=== PATIENT | female | born 1960 | race African-American/Black ===

== ENCOUNTER 2020-02-24 08:14 | Outpatient (CLI) | payer OTHER, SELFPAY ==
--- NOTE | ~2020-02-24 | MM_ITS ---
EXAMINATION: MM screening judd BI w alondra HISTORY: Screening mammogram TECHNIQUE: Craniocaudal and mediolateral oblique 3-D tomosynthesis images were obtained and synthetic 2-D images were generated. CAD analysis was submitted and interpreted. COMPARISON: No prior mammogram is available for comparison at this institution. BREAST PARENCHYMAL COMPOSITION: There are scattered areas of fibroglandular density. FINDINGS: There is no evidence of suspicious mass, calcification, or architectural distortion to sugg est malignancy in either breast. IMPRESSION: 1. No mammographic evidence of malignancy. 2. Recommend routine screening mammography in one year. BI-RADS Category 1: Negative Reviewed, dictated and finalized at location A. TABLE LOADER
== END 2020-02-24 08:15 | disposition home or self-care (01) ==
LOC: ANHIMG 08:19
PROVIDERS: PCP Physician Assistant; Visit Provider Physician Assistant
DX: Z12.31 Encounter for screening mammogram for malignant neoplasm of breast (principal)
CPT/HCPCS: 77063; 77067

== ENCOUNTER 2020-08-17 15:46 | Emergency (ER) | payer OTHER, SELFPAY ==
--- NOTE | ~2020-08-17 | CT_ITS ---
EXAMINATION: CT abdomen pelvis wo con DATE: 08/17/2020 20:09 INDICATION: Abdominal pain. TECHNIQUE: Computed tomography (CT) of the abdomen and pelvis was performed without intravenous contr ast. Automated exposure control and iterative reconstruction technique were employed. The dose-length product was 561.69 mGy-cm. COMPARISON: None FINDINGS: Lung bases are clear. Heart size is normal. No pericardial or pleural effusion. Well-defined 8 mm low -attenuation cyst in the right hepatic lobe. Gallbladder, spleen, pancreas, bilateral adrenal glands and kidneys are normal. Moderate amount of stool in the colon with proximal predominance. There is ad ditional extensive pseudo feces throughout the small bowel which can be seen with delayed transit. No dilated bowel to suggest obstruction. Normal appendix. 2.0 cm right ovarian dermoid with mixed fat a nd soft tissue density. Some coarse calcifications in the right side of the uterine fundus likely a d egenerated uterine fibroid. Bladder and left adnexa are unremarkable. No free intraperitoneal gas or fluid. No pathologically enlarged abdominal or pelvic lymphadenopathy. Minimal lower lumbar dextrocur vature. Mild degenerative skeletal changes in the spine and at the bilateral hips. IMPRESSION: 1. Moderate amount of colonic stool with pseudo feces scattered throughout the small bowel which coul d be seen with constipation and/or ileus. No dilated bowel to suggest obstruction or other acute intr a-abdominal/pelvic process. 2. 2.0 cm right ovarian dermoid. Reviewed, dictated and finalized at location A. IMPRESSION: 1. Moderate amount of colonic stool with pseudo feces scattered throughout the small bowel which could be seen with constipation and/or ileus. No dilated tino l to suggest obstruction or other acute intra-abdominal/pelvic process. 2. 2.0 cm right ovarian dermoid.
[2020-08-17 15:52] VITALS: BP 137/81; PULSE 72; RESP 18; TEMP 36.4; O2SAT 99
[2020-08-17 16:06] LABS: Basophils Percent Auto 0.9 % (0.2-1.2); Eosinophils Absolute Auto 0.1 K/mm3 (0-0.3); Eosinophils Percent Auto 2.2 % (0-4.4); Hematocrit 36.7 % (37.0-47.0); Hemoglobin 11.5 g/dL (12.0-15.0); Lymphocytes Absolute Auto 1.99 K/mm3 (0.9-3.2); Lymphocytes Percent Auto 42.9 % (18.3-44.2); Mean Corpuscular HGB Conc 31.3 g/dl (32-36); Mean Corpuscular Hemoglobin 25.7 pg (26-34); Mean Corpuscular Volume 81.9 fl (80-100); Monocytes Absolute Auto 0.4 K/mm3 (0.1-0.6); Monocytes Percent Auto 8.4 % (2.6-8.5); Neutrophils Absolute Auto 2.1 K/mm3 (1.3-6.7); Neutrophils Percent Auto 45.6 % (45.5-73.1); Platelet Count Result 194 k/mm3 (150-375); Red Blood Count 4.48 M/mm3 (4.2-5.4); White Blood Count 4.6 K/mm3 (4.5-10.0)
[2020-08-17 16:21] LABS: Alanine Aminotransferase 15 U/L (4-35); Albumin Level 4.6 g/dL (3.5-5.1); Alkaline Phosphatase 65 U/L (38-126); Anion Gap 8 mmol/L (8-16); Aspartate Amino Transferase 26 U/L (14-36); Bilirubin,Total 0.4 mg/dL (0.2-1.3); Blood Urea Nitrogen 17 mg/dL (7-17); Calcium 10.2 mg/dL (8.4-10.2); Carbon Dioxide 29 mmol/L (22-30); Chloride 104 mmol/L (98-107); Estimated CRCL calculation 65 ml/min; Estimated Glomerular Filt Rate > 60; Glucose 102 mg/dL (65-105); Lipase 73 U/L (23-300); Sodium 141 mmol/L (137-145)
[2020-08-17 18:47] LABS: Add Urine Microscopic? YES; Appearance Urine Clear (Clear); Bilirubin Urine Negative (Negative); Blood Urine Negative (Negative); Color Urine Yellow (Yellow); Glucose Urine UA Negative (Negative); Ketones Urine Negative (Negative); Leukocyte Esterase Ur Negative LEU/UL (Negative); Mucus Urine Rare /lpf; Nitrate Urine Negative (Negative); Protein Urine Negative (Negative); RBC Urine 0-2 /hpf (0-2); Specific Grav Ur 1.015 (1.001-1.035); Urobilinogen Urine Negative mg/dL (<2.0); WBC Urine 0-3 /hpf
[2020-08-17 18:48] VITALS: BP 169/76; PULSE 78; RESP 20; O2SAT 99
--- NOTE | 2020-08-17 20:20 | ED.GENADULT ---
HPI - General Adult General Chief complaint: Abdominal Pain Stated complaint: l flank pain Time Seen by Provider: 08/17/20 19:02 History of Present Illness HPI narrative: Patient 59-year-old female presents the emergency department with chief complaint of abdominal pain. The patient reports that she has been having discomfort in the left lower quadrant reports that it feels like her insides are twisting. The patient states that this is been going on for about a month reports that it started after she got her second Covid vaccine. Patient denies vomiting denies diarrhea denies burning with urination denies vaginal discharge. The patient reports the symptoms are not worsened by anything or they improved by anything Related Data Allergies Allergy/AdvReac Type Severity Reaction Status Date / Time No Known Allergies Allergy Verified 02/09/19 22:56 Review of Systems Review of Systems: Narrative: A 10 system review of systems was completed on the patient and is negative except for what is stated in the HPI. Nursing and ancillary documentation was reviewed. [facility] Social History Social History Gender identity (if verbalized by the patient): Female Exam Narrative: Exam Narrative: GENERAL: Well-appearing, well-nourished, and in no acute distress. HEAD: Normocephalic, atraumatic. EYES: PERRLA and EOMI. ENT: Nares clear, no rhinorrhea or epistaxis. Mucous membranes moist. NECK: Supple. CHEST: Clear to auscultation. No respiratory distress. HEART: Regular rate and rhythm. No murmur heard. Normal peripheral pulses. ABDOMEN: Soft, nontender, nondistended, normal active bowel sounds. EXTREMITIES: Normal range of motion. No edema. SKIN: Warm, dry, no rash. NEURO: No focal deficits. Alert and oriented x3. PSYCH: Normal mood and affect. Course Vital Signs Vital signs: Vital Signs Temperature 36.4 C L 08/17/20 15:52 Pulse Rate 72 08/17/20 15:52 Respiratory Rate 18 08/17/20 15:52 Blood Pressure 137/81 08/17/20 15:52 Pulse Oximetry 99 08/17/20 15:52 Temperature 36.4 C L 08/17/20 15:52 Pulse Rate 78 08/17/20 18:48 Respiratory Rate 20 08/17/20 18:48 Blood Pressure 169/76 H 08/17/20 18:48 Pulse Oximetry 99 08/17/20 18:48 Medical Decision Making Vital Signs Vital Signs: Vital Signs Temperature 36.4 C L 08/17/20 15:52 Pulse Rate 72 08/17/20 15:52 Respiratory Rate 18 08/17/20 15:52 Blood Pressure 137/81 08/17/20 15:52 Pulse Oximetry 99 08/17/20 15:52 Temperature 36.4 C L 08/17/20 15:52 Pulse Rate 78 08/17/20 18:48 Respiratory Rate 20 08/17/20 18:48 Blood Pressure 169/76 H 08/17/20 18:48 Pulse Oximetry 99 08/17/20 18:48 Lab Data Result diagrams: 08/17/20 15:59 08/17/20 15:59 Labs: Lab Results 08/17/20 08/17/20 08/17/20 Range/Units 15:59 15:59 18:40 WBC 4.6 (4.5-10.0) K/mm3 RBC 4.48 (4.2-5.4) M/mm3 Hgb 11.5 L (12.0-15.0) g/dL Hct 36.7 L (37.0-47.0) % MCV 81.9 (80-100) fl MCH 25.7 L (26-34) pg MCHC 31.3 L (32-36) g/dl RDW 14.0 (11.5-14.5) % Plt Count 194 (150-375) k/mm3 MPV 10.0 (7.4-10.4) fl Immature Gran % (Auto) 0.0 (0-0.5) % Neut % (Auto) 45.6 (45.5-73.1) % Lymph % (Auto) 42.9 (18.3-44.2) % Mellette % (Auto) 8.4 (2.6-8.5) % Eos % (Auto) 2.2 (0-4.4) % Baso % (Auto) 0.9 (0.2-1.2) % Lymph # (Auto) 1.99 (0.9-3.2) K/mm3 Mellette # (Auto) 0.4 (0.1-0.6) K/mm3 Eos # (Auto) 0.1 (0-0.3) K/mm3 Baso # (Auto) 0.0 (0.0-0.1) K/mm3 Abs Immat Gran (auto) 0.00 (0.00-0.031) K/mm3 Absolute Neuts (auto) 2.1 (1.3-6.7) K/mm3 Absolute Nucleated RBC 0.0 (0.0-0.012) K/mm3 Nucleated RBC % 0.0 (0.0-0.2) % Sodium 141 (137-145) mmol/L Potassium 4.0 (3.4-5.0) mmol/L Chloride 104 (98-107) mmol/L Carbon Dioxide 29 (22-30) mmol/L Anion Gap 8 (8-
[2020-08-17] MEDS: MAGNESIUM CITRATE 300 ML BTL PO (21:19)
[2020-08-17 21:25] VITALS: BP 121/85; PULSE 65; RESP 16; O2SAT 100
== END 2020-08-17 21:21 | disposition home or self-care (01) ==
PROVIDERS: Emergency Medicine; Emergency Provider Emergency Medicine; PCP Physician Assistant
DX: R10.84 Generalized abdominal pain (principal); K59.00 Constipation, unspecified
CPT/HCPCS: 36415; 74176; 80053; 81001; 81025; 83690; 85025; 99284; A9270

== ENCOUNTER 2022-02-20 20:34 | Emergency (ER) | payer OTHER, SELFPAY ==
--- NOTE | ~2022-02-20 | XR_ITS ---
EXAMINATION: XR chest 2V DATE: 02/20/2022 21:53 INDICATION: Syncope, coughing and chills TECHNIQUE: PA and lateral views of the chest were obtained. COMPARISON: Chest radiograph dated 11/12/17 FINDINGS: Stable appearance of mild biapical pleural-parenchymal scarring. No other airspace opacities, pulmona ry edema, pleural effusion or pneumothorax. The cardiomediastinal silhouette is normal. Mild upper th oracic spondylosis. IMPRESSION: 1. No acute cardiopulmonary disease. Reviewed, dictated and finalized at location A. RHANGER CONTRACTOR
[2022-02-20 20:44] VITALS: BP 124/70; PULSE 90; RESP 18; TEMP 36.8; O2SAT 98
--- NOTE | 2022-02-20 20:57 | ED.URI ---
HPI - URI/Sore Throat General Chief Complaint: Upper Respiratory Infection Stated Complaint: sore throat, chills, headache Time Seen by Provider: 02/20/22 20:57 Source: patient Mode of arrival: ambulatory Limitations: no limitations History of Present Illness HPI Narrative: Patient is a 61-year-old female presenting to the emergency department for evaluation following a syncopal event. Patient states that she has felt unwell today with fever, chills, sore throat. Patient denies any significant cough or shortness of breath. She denies chest pain. She states that she took a bath this evening and then stood up from the bathtub, was walking in the bathroom when she felt lightheaded, dizzy and then passed out. Patient did have a loss of consciousness. Patient's daughter heard her fall, states that she was unconscious for a few seconds. Unknown head trauma. Patient is not on any anticoagulation. Patient has been ambulatory since that.Pt denies neck, chest or hip pain. She denies palpitations or dyspnea. Pt reports decreased oral intake today secondary to feeling poorly. Patient denies any focal weakness or numbness. Patient does feel lightheaded and dizzy that worsens with standing. Related Data Allergies Allergy/AdvReac Type Severity Reaction Status Date / Time No Known Allergies Allergy Verified 02/20/22 20:56 Review of Systems Review of Systems: CONSTITUTIONAL: Reports subjective fever, chills CARDIOVASCULAR: Denies chest pain, palpitations, or edema. RESPIRATORY: Denies cough or dyspnea. GASTROINTESTINAL: Denies abdominal pain, nausea, vomiting, or diarrhea. GENITOURINARY: Denies dysuria or hematuria. SKIN: Denies rash or itching. MUSCULOSKELETAL: Denies back pain, joint pain, reports myalgias NEUROLOGIC: Denies headache, numbness, or weakness. [facility] Past Medical History Medical History (Updated 02/21/22 @ 02:32 by Fouzia Ricardo MD) No pertinent past medical history Surgical History Surgical History (Updated 02/20/22 @ 21:16 by Fouzia Ricardo MD) No pertinent past surgical history Social History Social History (Updated 02/20/22 @ 21:17 by Fouzia Ricardo MD) Smoking status: Never smoker Alcohol intake: never Substance use: never Living arrangements: with family Gender identity (if verbalized by the patient): Female Exam Narrative: GENERAL: Awake, alert, conversant HEAD: Normocephalic, atraumatic. EYES: PERRLA and EOMI. ENT: Nares clear, no rhinorrhea or epistaxis. Mucous membranes moist. Uvula is midline. No tonsillar edema or erythema. No exudates present. No trismus. NECK: Supple. No midline cervical tenderness. No step-offs or deformities. CHEST: No respiratory distress, breathing even and non labored HEART: Regular rate, sinus rhythm ABDOMEN:Non distended, non tender EXTREMITIES: Normal range of motion. No edema. SKIN: Warm, dry, no rash. NEURO:No focal deficits. Alert and oriented x3. EOMs intact without nystagmus. No facial droop/asymmetry noted bilaterally. Grimace intact. Intact sensation in face. Hearing intact bilaterally. Shoulder shrug intact. Strength 5/5 bilateral upper extremities. Strength 5/5 bilateral lower extremities. Reflexes 2+ patellar. Heel to barnard intact bilaterally. Ambulatory with a narrow base, steady gait, no ataxia. Course Vital Signs Vital signs: Vital Signs Temperature 36.8 C 02/20/22 20:44 Pulse Rate 90 02/20/22 20:44 Respiratory Rate 18 02/20/22 20:44 Blood Pressure 124/70 02/20/22 20:44 Pulse Oximetry 98 02/20/22 20:44 Oxygen Delivery Room Air 02/20/22 20:44 Temperature 36.8 C 02/20/22 20:44 Pulse Rate 58 L 02/20/22 22:40 Respiratory Rate 12 02/20/22 22:40 Blood Pressure 100/75 02/20/22 22:40 Pulse Oximetry 98 02/20/22 22:40 Oxygen Delivery Room Air 02/20/22 20:55 MDM - URI/Sore Throat MDM Narrative Medical decision making narrative: The patient was evaluated in the emergency departmen
--- NOTE | 2022-02-20 21:10 | ECG_ITS ---
Measurements Intervals [place] Rate: 78 P: 71 CA: 181 QRS: 8 QRSD: 78 T: 33 QT: 389 QTc: 445 Interpretive Statements SINUS RHYTHM POSSIBLE RIGHT ATRIAL ENLARGEMENT [0.25mV P WAVE] NONSPECIFIC ST & T-WAVE ABNORMALITY NO PREVIOUS ECG AVAILABLE FOR COMPARISON Electronically Signed On 02-21-2022 10:16:25 SALES PRODUCT MANAGER by Awais Batista M.D.
[2022-02-20 21:20] LABS: Strep Group A RT-PCR NOT DETECTED (Negative)
[2022-02-20 21:34] LABS: Influenza A QL RT-PCR Positive (Negative); Influenza B QL RT-PCR Negative (Negative); SARS-CoV-2 RNA PCR Negative
--- NOTE | 2022-02-20 21:36 | PC.NURSE ---
patient reported that she had a syncopal episode today. that was not mentioned during nursing assessment. denies having a hx of any syncopal episodes in the past
[2022-02-20 21:51] LABS: Basophils Percent Auto 0.5 % (0.2-1.2); Eosinophils Percent Auto 0.3 % (0-4.4); Hemoglobin 13.2 g/dL (12.0-15.0); Immature Granulocyte Absolute 0.02 K/mm3 (0.00-0.031); Immature Granulocyte Percent A 0.5 % (0-0.5); Lymphocytes Absolute Auto 0.99 K/mm3 (0.9-3.2); Lymphocytes Percent Auto 25.5 % (18.3-44.2); Mean Corpuscular HGB Conc 31.4 g/dl (32-36); Mean Corpuscular Hemoglobin 25.7 pg (26-34); Mean Corpuscular Volume 81.9 fl (80-100); Mean Platelet Volume 10.4 fl (7.4-10.4); Monocytes Absolute Auto 0.7 K/mm3 (0.1-0.6); Monocytes Percent Auto 19.1 % (2.6-8.5); Neutrophils Absolute Auto 2.1 K/mm3 (1.3-6.7); Neutrophils Percent Auto 54.1 % (45.5-73.1); Platelet Count Result 194 k/mm3 (150-375); Red Blood Count 5.13 M/mm3 (4.2-5.4); Red Cell Distribution Width 14.3 % (11.5-14.5); White Blood Count 3.9 K/mm3 (4.5-10.0)
[2022-02-20] MEDS: ACETAMINOPHEN 500 MG TABLET 1000 MG PO (22:09)
[2022-02-20] MEDS: SODIUM CHLORIDE 0.9% IV 1,000 ML 999 ML IV CONT (22:10)
[2022-02-20 22:12] VITALS: BP 127/75; PULSE 87; RESP 19; O2SAT 98
[2022-02-20 22:40] VITALS: BP 100/75; PULSE 58; RESP 12; O2SAT 98
[2022-02-20 23:30] LABS: Anion Gap 10 mmol/L (8-16); Blood Urea Nitrogen 17 mg/dL (7-17); Calcium 9.5 mg/dL (8.4-10.2); Carbon Dioxide 27 mmol/L (22-30); Chloride 98 mmol/L (98-107); Estimated Glomerular Filt Rate 56; Glucose 115 mg/dL (65-110); Potassium 3.4 mmol/L (3.4-5.0); Sodium 135 mmol/L (137-145)
[2022-02-20 23:42] LABS: Troponin I < 0.012 ng/mL (0.000-0.034)
[2022-02-21 01:49] LABS: Add Urine Microscopic? YES; Appearance Urine Clear (Clear); Bilirubin Urine 1+ (Negative); Blood Urine Negative (Negative); Color Urine Yellow (Yellow); Glucose Urine UA Negative (Negative); Ketones Urine 3+ mg/dL (Negative); Leukocyte Esterase Ur Trace LEU/UL (Negative); Nitrate Urine Negative (Negative); Protein Urine 1+ mg/dL (Negative); Specific Grav Ur >= 1.030 (1.001-1.035)
[2022-02-21] MEDS: SODIUM CHLORIDE 0.9% IV 1,000 ML 999 ML IV CONT (02:15)
[2022-02-21 02:59] VITALS: BP 117/68; PULSE 66; RESP 11; O2SAT 100
[2022-02-21 03:23] LABS: Troponin I < 0.012 ng/mL (0.000-0.034)
== END 2022-02-21 03:45 | disposition home or self-care (01) ==
PROVIDERS: Emergency Provider Emergency Medicine; PCP Physician Assistant
DX: J10.1 Influenza due to other identified influenza virus with other respiratory manifestations (principal); R55 Syncope and collapse; Z20.822 Contact with and (suspected) exposure to COVID-19; R94.31 Abnormal electrocardiogram [ECG] [EKG]
CPT/HCPCS: 36415; 71046; 80048; 81001; 84484; 85025; 87636; 87651; 93005; 96360; 96361; 99284; A9270; J7030

== ENCOUNTER 2022-06-17 09:07 | Emergency (ER) | payer OTHER, SELFPAY ==
--- NOTE | ~2022-06-17 | CT_ITS ---
EXAMINATION: CT lumbar spine wo con DATE: 06/17/2022 09:51 INDICATION: Low back pain. TECHNIQUE: Computed tomography (CT) of the lumbar spine was performed without intravenous contrast. A utomated exposure control and iterative reconstruction technique were employed. The dose-length produ ct was 806.62 mGy-cm. COMPARISON: None FINDINGS: There is a 1.7 cm mass with fat in the right adnexa, consistent with a dermoid. There is a calcified fibroid in the uterus. Bone alignment is normal. Vertebral body heights are normal. There i s mildly decreased disc height at L3-L4. The following disc levels are specifically discussed: L1-L2: The disc does not extend beyond the endplate margin. There is severe bilateral facet joint ost eoarthritis. There is no neural foraminal stenosis. There is no central canal stenosis. L2-L3: There is a right foraminal protrusion. There is moderate right and mild left facet joint osteo arthritis. There is mild right neural foraminal stenosis. There is no central canal stenosis. L3-L4: The disc is bulging. There is severe bilateral facet joint osteoarthritis. There is mild bilat eral neural foraminal stenosis. There is mild central canal stenosis. L4-L5: The disc is bulging. There is severe bilateral facet joint osteoarthritis. There is moderate b ilateral neural foraminal stenosis. There is mild central canal stenosis. L5-S1: The disc is bulging. There is severe bilateral facet joint osteoarthritis. There is mild bilat eral neural foraminal stenosis. There is mild central canal stenosis. IMPRESSION: 1. Moderate lumbar spondylosis. Reviewed, dictated and finalized at location A.
[2022-06-17 09:13] VITALS: BP 154/71; PULSE 57; RESP 16; TEMP 37.3; O2SAT 100
--- NOTE | 2022-06-17 09:33 | ED.BACK ---
HPI - Back Pain/Injury General Chief Complaint: Back Pain/Injury Stated Complaint: back pain Time Seen by Provider: 06/17/22 09:11 History of Present Illness HPI Narrative: 61-year-old female reports to the emergency for evaluation of bilateral low back pain for 2 days after she was massaging her low back 2 days ago and has had persistent pain since. Taking 500 mg ibuprofen yesterday with relief, and 500 mg ibuprofen 2 and half hours ago with small improvement. She denies recent injury to back, paresthesias, saddle anesthesia, loss of bowel or bladder control or retention, fever, body aches, chills, history of cancer, steroid use, IV drug use. Denies urinary complaints. Related Data Allergies Allergy/AdvReac Type Severity Reaction Status Date / Time No Known Allergies Allergy Verified 02/20/22 20:56 Review of Systems Review of Systems: CONSTITUTIONAL: Denies fever, chills EYES: Denies visual changes, redness, or discharge. ENT: Denies rhinorrhea, congestion, sore throat, or otalgia. CARDIOVASCULAR: Denies chest pain, palpitations, or edema. RESPIRATORY: Denies cough or dyspnea. GASTROINTESTINAL: Denies abdominal pain, nausea, vomiting, or diarrhea. GENITOURINARY: Denies dysuria or hematuria. SKIN: Denies rash or itching. MUSCULOSKELETAL: See HPI NEUROLOGIC: Denies headache, numbness, dizziness, or weakness. PSYCHIATRIC: Denies anxiety or depression. [facility] Past Medical History Medical History No pertinent past medical history Surgical History Surgical History No pertinent past surgical history Social History Social History Smoking status: Never smoker Alcohol intake: never Substance use: never Living arrangements: with family Gender identity (if verbalized by the patient): Female Exam Narrative: GENERAL: Well-appearing, well-nourished, and in no acute distress. Patient resting comfortably in the exam bed. She is pleasant and conversational. HEAD: Normocephalic, atraumatic. EYES: PERRLA and EOMI. ENT: Nares clear, no rhinorrhea or epistaxis. Mucous membranes moist. Oropharynx without tonsillar hypertrophy exudate or other lesions. NECK: Supple. No adenopathy or masses. No cervical vertebral tenderness, step-offs or deformities. Full range of motion of neck. CHEST: Clear to auscultation. No respiratory distress. No wheezes rales or rhonchi HEART: Regular rate and rhythm. No murmur heard. Normal peripheral pulses. ABDOMEN: Soft, nontender, nondistended, normal active bowel sounds. BACK: No vertebral spine tenderness, step-offs or deformities. Bilateral lumbar paraspinous tenderness. Full range of motion of back, pain exacerbated with leftward and rightward bending of the waist and rotation. No overlying skin changes. No tenderness to pelvis with palpation. Patient ambulatory, no ataxia. EXTREMITIES: Full range of motion of hips, knees, ankles. No saddle anesthesia. Sensation intact throughout. Strength 5/5 in BUE and BLE. DP and radial pulses 2+. No edema. SKIN: Warm, dry, no rash. NEURO: No focal deficits. Alert and oriented x3. PSYCH: Normal mood and affect. Course Vital Signs Vital signs: Vital Signs Temperature 99.1 F 06/17/22 09:13 Pulse Rate 57 L 06/17/22 09:13 Respiratory Rate 16 06/17/22 09:13 Blood Pressure 154/71 H 06/17/22 09:13 Pulse Oximetry 100 06/17/22 09:13 Oxygen Delivery Room Air 06/17/22 09:13 Temperature 99.1 F 06/17/22 09:13 Pulse Rate 65 06/17/22 10:43 Respiratory Rate 16 06/17/22 10:43 Blood Pressure 125/82 06/17/22 10:43 Pulse Oximetry 100 06/17/22 10:43 Oxygen Delivery Room Air 06/17/22 09:13 MDM - Back Pain/Injury MDM Narrative Medical decision making narrative: This is a 61-year-old female who reports for evaluation of bilateral lumbar back alvaro
[2022-06-17] MEDS: CYCLOBENZAPRINE HCL 10 MG TABLET PO (09:39)
[2022-06-17] MEDS: ACETAMINOPHEN 500 MG TABLET 1000 MG PO (09:41)
[2022-06-17 09:54] LABS: Appearance Urine Clear (Clear); Bacteria Urine None Seen /hpf; Bilirubin Urine Negative (Negative); Blood Urine Negative (Negative); Color Urine Yellow (Yellow); Glucose Urine UA Negative (Negative); Ketones Urine Negative (Negative); Leukocyte Esterase Ur Trace LEU/UL (Negative); Nitrate Urine Negative (Negative); Non Pathogenic Casts 0-2; Protein Urine Negative (Negative); RBC Urine 0-2 /hpf (0-2); Specific Grav Ur 1.028 (1.001-1.035); Squamous Epithelial Cell Urine None seen /hpf (Few); WBC Urine 0-5 /hpf
[2022-06-17 10:00] LABS: Add Urine Microscopic? YES
[2022-06-17 10:43] VITALS: BP 125/82; PULSE 65; RESP 16; O2SAT 100
== END 2022-06-17 10:45 | disposition home or self-care (01) ==
PROVIDERS: Emergency Provider Physician Assistant; PCP Physician Assistant
DX: S39.012A Strain of muscle, fascia and tendon of lower back, initial encounter (principal); M47.816 Spondylosis without myelopathy or radiculopathy, lumbar region; X58.XXXA Exposure to other specified factors, initial encounter
CPT/HCPCS: 72131; 81001; 96372; 99284; A9270; J1100

== ENCOUNTER 2022-08-18 23:37 | Emergency (ER) | payer OTHER, SELFPAY ==
--- NOTE | ~2022-08-18 | CT_ITS ---
EXAMINATION: CT brain wo con INDICATION: Head injury COMPARISON: None TECHNIQUE: Standard unenhanced head CT. The dose-length product (DLP) was 681.00 mGy-cm. The mA was a djusted according to patient size. Iterative reconstruction technique was employed. FINDINGS: There is no acute intraparenchymal hemorrhage. No evidence of mass lesion. No evidence of a cute infarction. There is mild periventricular and subcortical hypodensity probably related to small vessel ischemic disease. There is mild prominence of the sulci and ventricles related to cerebral atr ophy. Intracranial calcified cerebral atherosclerosis is noted. There are no extra-axial collections. There is no mass effect or midline shift. The orbits and soft tissues are unremarkable. There is opa cification of the partially imaged right maxillary sinus. IMPRESSION: 1. No acute intracranial abnormality. 2. Age related findings. Reviewed, dictated and finalized at location A.
[2022-08-18 23:42] VITALS: BP 151/72; PULSE 74; RESP 16; TEMP 36.6; O2SAT 100
--- NOTE | 2022-08-19 01:01 | ED.HEATRA ---
HPI - Head Injury General Chief complaint: Head Injury <Naila Valle PA-C - Last Filed: 08/21/22 14:22> Stated complaint: head injury <Naila Valle PA-C - Last Filed: 08/21/22 14:22> Time Seen by Provider: 08/19/22 00:53 <Naila Valle PA-C - Last Filed: 08/21/22 14:22> History of Present Illness HPI Narrative: 61-year-old female presents for evaluation for head injury and headache. Patient states that she was at work 5 hours ago, she had a large 7 foot whip from a computer fall over her R yarsani. States she had a headache over her L yarsani since the accident which has since resolved. She denies LOC, n/v, vision changes, focal numbness or weakness, difficulty walking or talking, difficulty swallowing, amnesia. She has not taken anything for pain. She is not currently on blood thinners. <Naila Valle PA-C - Last Filed: 08/21/22 14:22> Related Data Allergies/Adverse reactions: Allergies Allergy/AdvReac Type Severity Reaction Status Date / Time No Known Allergies Allergy Verified 02/20/22 20:56 <Naila Valle PA-C - Last Filed: 08/21/22 14:22> Review of Systems Review of Systems: CONSTITUTIONAL: Denies fever, chills EYES: Denies visual changes, redness, or discharge. ENT: Denies rhinorrhea, congestion, sore throat, or otalgia. CARDIOVASCULAR: Denies chest pain, palpitations, or edema. RESPIRATORY: Denies cough or dyspnea. GASTROINTESTINAL: Denies abdominal pain, nausea, vomiting, or diarrhea. GENITOURINARY: Denies dysuria or hematuria. SKIN: Denies rash or itching. MUSCULOSKELETAL: Denies back pain, joint pain, or myalgia. NEUROLOGIC: See HPI PSYCHIATRIC: Denies anxiety or depression. <Naila Valle PA-C - Last Filed: 08/21/22 14:22> PMFSH Past Medical History Medical History: Medical History No pertinent past medical history <Naila Valle PA-C - Last Filed: 08/21/22 14:22> Surgical History Surgical History: Surgical History No pertinent past surgical history <Naila Valle PA-C - Last Filed: 08/21/22 14:22> Social History Social History: Social History Smoking status: Never smoker Alcohol intake: never Substance use: never Living arrangements: with family Gender identity (if verbalized by the patient): Female <Naila Valle PA-C - Last Filed: 08/21/22 14:22> Exam Narrative: GENERAL: Well-appearing, in no acute distress. HEAD: Normocephalic. Tenderness to the right parietal scalp superior to the yarsani. No overlying skin changes, hematoma, crepitus. EYES: PERRLA, EOMI ENT: Nares clear. Mucous membranes moist. Oropharynx without tonsillar hypertrophy exudate or other lesions. NECK: Supple. CHEST: No respiratory distress. Clear to auscultation, no adventitious breath sounds. HEART: Regular rate and rhythm. No murmur heard. Normal peripheral pulses. EXTREMITIES: Normal range of motion. No edema. SKIN: Warm, dry, no rash. NEURO: No focal deficits. Alert and oriented x3. Cranial nerves II through XII intact. Strength 5/5 in BUE and BLE. Sensation intact throughout. PSYCH: Normal mood and affect. <Naila Valle PA-C - Last Filed: 08/21/22 14:22> Course TIMERS INSPECTOR/PA Physician Supervision This visit was performed by both the physician and an APC. I performed all aspects of the MDM as documented <Charlie Desai MD - Last Filed: 08/19/22 06:56> Vital Signs Vital signs: Vital Signs Temperature 97.9 F 08/18/22 23:42 Pulse Rate 74 08/18/22 23:42 Respiratory Rate 16 08/18/22 23:42 Blood Pressure 151/72 H 08/18/22 23:42 Pulse Oximetry 100 08/18/22 23:42 Oxygen Delivery Room Air 08/18/22 23:42 Temperature 97.9 F 08/18/22 23:42 Pulse Rate 56 L 08/19/22 06:20 Respiratory Rate
[2022-08-19] MEDS: ACETAMINOPHEN 500 MG TABLET 1000 MG PO (01:17)
[2022-08-19 06:20] VITALS: BP 128/69; PULSE 56; RESP 16; O2SAT 100
== END 2022-08-19 07:02 | disposition home or self-care (01) ==
LOC: ANHED 08-19 01:26
PROVIDERS: Emergency Provider Physician Assistant; PCP Physician Assistant
DX: S09.90XA Unspecified injury of head, initial encounter (principal); W20.8XXA Other cause of strike by thrown, projected or falling object, initial encounter
CPT/HCPCS: 70450; 99284; A9270

== ENCOUNTER 2022-09-05 11:00 | Outpatient (RCR) | payer OTHER, SELFPAY ==
--- NOTE | 2022-08-14 10:19 | PCPTNOTE ---
Patient did not show up for scheduled evaluation this date.
--- NOTE | 2022-08-15 11:39 | PTOPEVAL1 ---
Assessment and note entered by Tricia Estrada, PT Evaluation Information Assessment Status Evaluation Diagnosis lumbar spainl stenosis Onset July 2022 Subjective Information went to ER due to back pain; in the past week, have been doing everything, but trying to protect her back and do less lifting and bending; do not have any restrictions for work; Reported Pain Level Pain Score Self Report Additional Pain Score Comments in the past week, pain range of 0-2/10-- have not had any back pain, but back was tender and feel like need to stretch; increase with walking and twisting back; decrease pain with stretching and change position; get cramps in calves and low back muscles; when went to ER had pain into both lateral hips- now gone; no problems with sleeping- usually on R side education: use of heat/ice PRN--has not used in the past; position change, monitor posture and position of low back; Assessment PT Clinical Summary Raegan has the diagnosis of lumbar spinal stenosis She went to the ER in July due to worsening pain which is now less. She is limiting her lifting and activity at work, but requirement is 50# lifting. Currently, she is working 2 jobs, 12-16 hours/day, 5x/wk. With the evaluation, she has good flexibility of her trunk and hips, with the only motion that elicited pain was standing trunk rotation to R; in standing, has slight anterior tilt of pelvis/ sacrum; weakness of trunk/abdominals. Her back pain has started to resolve and she is increasing her activity to almost full work duties--limits her lifting and reaching at work. Skilled PT services are indicated for modalities PRN for pain control; therapeutic exercises and activities to increase trunk strength and simulated work activity- lifting, reaching with education for body mechanics, posture and HEP. Plan of Care Interventions Electrical Stimulation,Hot Pack/Cold Pack,Manual Therapy,Neuro Re-education,Patient Education,Therapeutic Activities,Therapeutic Exercise,Ultrasound,Other Other Interventions devin, [facility] PT Services Indicated Yes Treatment Frequency and 2x/wk for 3 weeks Duration Th
--- NOTE | 2022-08-18 08:40 | PCPTNOTE ---
Patient did not show up for scheduled appointment this date; called patient left voicemail to remind patient on next appointment.
--- NOTE | 2022-08-26 13:00 | PCPTNOTE ---
pt did not show for today's appt; called her, she forgot about appointment, reminded her of the next appt and she stated she would be here.
--- NOTE | 2022-09-05 11:38 | PTOPDC ---
Assessment and note entered by Tricia Estrada, PT Evaluation Information Assessment Status Discharge Diagnosis lumbar spainl stenosis Onset July 2022 Subjective Information Raegan reports: back is doing OK; little sore from sitting in the car and driving 6 hours; is bending alot at work, to reach down; try to remember to squat to reach down, but do not always remember; bought a massager gun to use on side of legs, helped; have been doing the stretches and exercises at home; at work gets help if something is too heavy; she agrees to discharge from PT services and will continue to do her exercises. Reported Pain Level Pain Score Self Report Additional Pain Score Comments no pain in her back for the past week; has had some soreness and tightness but NO pain Assessment PT Clinical Summary Raegan has received 5 PT sessions. She did not show for 2 appointments. Compared to the initial evaluation: reported pain has decreased at worst from 2-0/10; increased trunk and hip strength with mat exercises and single leg standing time; bilateral UE box lift with maximum weight of 30# from floor/waist height ,with good body mechanics; Education has been completed for home exercises, posture and body mechanics. The goals were partially met. Discharge PT services; continue to do HEP and monitor posture. Plan of Care PT Services Indicated No
== END 2022-09-05 12:53 | disposition home or self-care (01) ==
LOC: ANHPT 11:00
PROVIDERS: PCP Physician Assistant; Visit Provider Physician Assistant
DX: M48.061 Spinal stenosis, lumbar region without neurogenic claudication (principal)
CPT/HCPCS: 97110; 97161; 97530; 99199

== ENCOUNTER 2022-12-20 12:31 | Emergency (ER) | payer OTHER, SELFPAY ==
--- NOTE | ~2022-12-20 | US_ITS ---
EXAMINATION: US venous doppler [facility] DATE: 12/20/2022 15:20 INDICATION: Lower limb pain TECHNIQUE: Grayscale ultrasound images without and with compression and Doppler ultrasound images of the bilateral lower extremity veins were obtained. COMPARISON: None. FINDINGS: The visualized portions of right common femoral vein, profunda (deep) femoral vein, femoral vein, pop liteal vein, posterior tibial veins, peroneal veins, gastrocnemius vein and greater saphenous vein ou tflow are patent. The visualized portions of left common femoral vein, profunda femoral vein, femoral vein, popliteal v ein, posterior tibial veins, peroneal veins, gastrocnemius vein and greater saphenous vein outflow ar e patent. IMPRESSION: 1. No deep venous thrombosis in either lower limb. Reviewed, dictated and finalized at location A.
[2022-12-20 12:33] VITALS: BP 160/76; PULSE 68; RESP 14; TEMP 36.7; O2SAT 100
[2022-12-20 13:21] LABS: Basophils Percent Auto 0.9 % (0.2-1.2); Eosinophils Absolute Auto 0.2 K/mm3 (0-0.3); Eosinophils Percent Auto 3.7 % (0-4.4); Hematocrit 36.4 % (37.0-47.0); Hemoglobin 11.2 g/dL (12.0-15.0); Immature Granulocyte Absolute 0.01 K/mm3 (0.00-0.031); Immature Granulocyte Percent A 0.2 % (0-0.5); Lymphocytes Absolute Auto 1.82 K/mm3 (0.9-3.2); Lymphocytes Percent Auto 39.3 % (18.3-44.2); Mean Corpuscular HGB Conc 30.8 g/dl (32-36); Mean Corpuscular Hemoglobin 25.4 pg (26-34); Mean Corpuscular Volume 82.5 fl (80-100); Mean Platelet Volume 10.4 fl (7.4-10.4); Monocytes Absolute Auto 0.4 K/mm3 (0.1-0.6); Monocytes Percent Auto 9.1 % (2.6-8.5); Neutrophils Absolute Auto 2.2 K/mm3 (1.3-6.7); Neutrophils Percent Auto 46.8 % (45.5-73.1); Platelet Count Result 200 k/mm3 (150-375); Red Blood Count 4.41 M/mm3 (4.2-5.4); Red Cell Distribution Width 13.6 % (11.5-14.5); White Blood Count 4.6 K/mm3 (4.5-10.0)
[2022-12-20 13:32] LABS: Alanine Aminotransferase 22 U/L (6-35); Albumin Level 4.5 g/dL (3.5-5.1); Alkaline Phosphatase 66 U/L (38-126); Anion Gap 6 mmol/L (8-16); Aspartate Amino Transferase 27 U/L (14-36); Bilirubin,Total 0.7 mg/dL (0.2-1.3); Blood Urea Nitrogen 17 mg/dL (7-17); Calcium 9.3 mg/dL (8.4-10.2); Carbon Dioxide 26 mmol/L (22-30); Chloride 104 mmol/L (98-107); Estimated CRCL calculation 73 ml/min; Estimated Glomerular Filt Rate > 60; Glucose 94 mg/dL (65-110); Potassium 4.1 mmol/L (3.4-5.0); Sodium 136 mmol/L (137-145)
[2022-12-20 13:41] LABS: NT Pro B Type Natriuretic Pept 95 pg/mL (19.9-100)
--- NOTE | 2022-12-20 15:51 | ED.EXTPRO ---
HPI - Extremity Problem General Chief complaint: Extremity Problem,Nontraumatic Stated complaint: swollen legs Time Seen by Provider: 12/20/22 12:58 History of Present Illness HPI Narrative: 61-year-old female presented the emergency department for evaluation of lower extremity swelling. Patient states the swelling has been going on for an extended period of time but did start worsening over the last few days. Patient does have outpatient follow-up scheduled but she states that the symptoms worsen so she wanted to be evaluated. Patient has been wearing compressive stockings without significant improvement. Related Data Allergies Allergy/AdvReac Type Severity Reaction Status Date / Time No Known Allergies Allergy Verified 12/17/22 12:18 Review of Systems Review of Systems: All systems reviewed & are unremarkable except as noted in HPI and below PMFSH Past Medical History Medical History No pertinent past medical history Surgical History Surgical History No pertinent past surgical history Social History Social History Smoking status: Never smoker Alcohol intake: never Substance use: never Living arrangements: with family Gender identity (if verbalized by the patient): Female Spiritual care concerns: No Exam Narrative: APPEARANCE: Well appearing, no pain, no distress, well-nourished. HEAD: normocephalic, atraumatic. EYES: PERRLA/EOMI, conjunctivae clear. NOSE: Normal no drainage NECK: Supple. No adenopathy, no masses. RESPIRATORY: Airway patent, respirations nonlabored. Clear to auscultation bilaterally, no rales, rhonchi, wheezing. CARDIOVASCULAR: Regular rate and rhythm without murmurs rubs or gallops. ABDOMINAL: Soft, nontender, nondistended, normal bowel sounds MUSCULOSKELETAL: Moves all extremities. Bilateral lower extremity edema worse on right than left. NEURO: Alert. Cranial nerves II through XII intact. Grossly intact SKIN: Warm, dry. Normal Color. No lower extremity erythema Course Course Emergency Course: 61-year-old female present emergency department for evaluation of lower extremity swelling. Patient is afebrile with no leukocytosis and a stable hemoglobin. Patient's CMP has no significant abnormality and patient's BNP is not elevated. Ultrasound showed no evidence of DVT. Patient was encouraged of close follow-up with her primary care physician Vital Signs Vital signs: Vital Signs Temperature 98.0 F 12/20/22 12:33 Pulse Rate 68 12/20/22 12:33 Respiratory Rate 14 12/20/22 12:33 Blood Pressure 160/76 H 12/20/22 12:33 Pulse Oximetry 100 12/20/22 12:33 Oxygen Delivery Room Air 12/20/22 12:33 Temperature 98.0 F 12/20/22 12:33 Pulse Rate 68 12/20/22 12:33 Respiratory Rate 14 12/20/22 12:33 Blood Pressure 160/76 H 12/20/22 12:33 Pulse Oximetry 100 12/20/22 12:33 Oxygen Delivery Room Air 12/20/22 12:33 MDM - Extremity (Nontraumatic) Lab Data 12/20/22 13:15 12/20/22 13:15 Labs: Lab Results 12/20/22 Range/Units 13:15 WBC 4.6 (4.5-10.0) K/mm3 RBC 4.41 (4.2-5.4) M/mm3 Hgb 11.2 L (12.0-15.0) g/dL Hct 36.4 L (37.0-47.0) % MCV 82.5 (80-100) fl MCH 25.4 L (26-34) pg MCHC 30.8 L (32-36) g/dl RDW 13.6 (11.5-14.5) % Plt Count 200 (150-375) k/mm3 MPV 10.4 (7.4-10.4) fl Immature Gran % (Auto) 0.2 (0-0.5) % Neut % (Auto) 46.8 (45.5-73.1) % Lymph % (Auto) 39.3 (18.3-44.2) % [place] % (Auto) 9.1 H (2.6-8.5) % Eos % (Auto) 3.7 (0-4.4) % Baso % (Auto) 0.9 (0.2-1.2) % Lymph # (Auto) 1.82 (0.9-3.2) K/mm3 [place] # (Auto) 0.4 (0.1-0.6) K/mm3 Eos # (Auto) 0.2 (0-0.3) K/mm3 Baso # (Auto) 0.0 (0.0-0.1) K/mm3 Abs Immat Gran (auto) 0.01 (0.00-0.031) K/mm3 Absolute Neuts (auto) 2.2 (1
== END 2022-12-20 16:07 | disposition home or self-care (01) ==
PROVIDERS: Emergency Provider Emergency Medicine; PCP Physician Assistant
DX: R22.43 Localized swelling, mass and lump, lower limb, bilateral (principal)
CPT/HCPCS: 36415; 80053; 83880; 85025; 93970; 99284

== ENCOUNTER 2022-12-26 01:04 | Day surgery (SDC) | payer OTHER, SELFPAY ==
[2022-12-17 12:20] VITALS: BMI 27.5
[2022-12-26 11:27] VITALS: BMI 27.3
--- NOTE | 2022-12-26 11:27 | PM.HPGS ---
History of Present Illness History of Present Illness Consent: Risks, benefits, and alternatives have been discussed and questions answered. Patient agrees to proceed with procedure. Chief complaint: neoplasm screening Narrative: Raegan Gregg is a 62 year old female Presents for screening colonoscopy. Patient has current weight appetite bowel movements are normal. She denies abdominal pain. She has had no bleeding. Family history is noncontributory. Review of Systems Review of Systems: Review of systems noncontributory. PMFSH Past Medical History Medical History No pertinent past medical history Surgical History Surgical History No pertinent past surgical history Social History Social History Smoking status: Never smoker Alcohol intake: never Substance use: never Living arrangements: with family Gender identity (if verbalized by the patient): Female Spiritual care concerns: No Meds Home Medications and Allergies Home Medications Medication Instructions Recorded Confirmed Type naproxen 250 mg tablet 250 mg PO BID PRN pain #20 tabs 06/17/22 12/17/22 Rx Allergies Allergy/AdvReac Type Severity Reaction Status Date / Time No Known Allergies Allergy Verified 12/26/22 11:24 Exam Narrative: Physical exam reveals patient to be alert. Vital signs stable. HEENT exam is unremarkable. Patient is anicteric. Lungs are clear to auscultation and percussion. Heart is without murmur or extra sounds. Abdomen bowel sounds are present soft nontender with no organomegaly. Digital external rectal exam normal. Assessment and Plan Assessment and plan (1) Encounter for screening colonoscopy: Code(s): Z12.11 - Encounter for screening for malignant neoplasm of colon Status: Acute Assessment and Plan: Patient presents for screening colonoscopy. She appears to be at average risk for colon polyps. Further recommendations may be given after endoscopy.
[2022-12-26 11:30] VITALS: BP 150/59; PULSE 73; RESP 20; TEMP 36.2; O2SAT 100
[2022-12-26] MEDS: LACTATED RINGERS 1,000 ML 150 ML IV CONT (11:36)
--- NOTE | 2022-12-26 11:58 | WPDANESEPPF ---
Anes - Initial Pre Proc Eval Procedure: Operation Date: 12/26/22 12:30 Proposed Procedures p Screening Colonoscopy - Seun Urias MD Date/Time: 12/26/22 11:58 Surgeon: Seun Urias MD Pre Op Diagnosis: neoplasm screening Patient Data Age: 62 Gender: F Height: 1.78 m Weight: 86.6 kg Last Vital Signs Temp 97.2 F L 12/26/22 11:30 Pulse 73 12/26/22 11:30 Resp 20 12/26/22 11:30 BP 150/59 H 12/26/22 11:30 Pulse Ox 100 12/26/22 11:30 O2 Del Method Room Air 12/26/22 11:30 Allergies Allergy/AdvReac Type Severity Reaction Status Date / Time No Known Allergies Allergy Verified 12/26/22 11:24 Home Medications Medication Instructions Recorded Confirmed Type naproxen 250 mg tablet 250 mg PO BID PRN pain #20 tabs 06/17/22 12/17/22 Rx Patient hx anesthesia problems: none Family hx anesthesia problems: none Results Review: All pre-operative results and documents have been reviewed as part of the pre-operative evaluation. [facility] Past Medical History Medical History No pertinent past medical history Surgical History Surgical History No pertinent past surgical history Social History Social History Smoking status: Never smoker Alcohol intake: never Substance use: never Living arrangements: with family Gender identity (if verbalized by the patient): Female Spiritual care concerns: No Anes - Eval Final PreProcedure Day of Procedure 12/26/22 11:58 Patient weight: normal Heart: regular rate and rhythm Lungs: clear to auscultation Airway: Mallampati scale class II Neurological: alert and oriented Last oral intake: >/= 8 hours ASA classification: II Emergent: no Anesthetic plan: proceed Anesthesia type and monitoring: general GIVS and standard monitoring Results Review: All pre-operative results and documents have been reviewed as part of the pre-operative evaluation. Informed Consent: The patient's anesthetic plan and its attendant risks and benefits were discussed with the patient/family/POA. Questions were solicited and answers provided to the satisfaction of the patient/family/POA.
[2022-12-26 13:11] VITALS: BP 149/78; PULSE 78; RESP 16; O2SAT 100
[2022-12-26 13:21] VITALS: BP 150/84; PULSE 79; RESP 19; O2SAT 100
[2022-12-26 13:31] VITALS: BP 147/79; PULSE 72; RESP 20; O2SAT 100
== END 2022-12-26 13:51 | disposition home or self-care (01) ==
PROVIDERS: PCP Physician Assistant; Visit Provider Internal Medicine Gastroenterology
PROC: 0DJD8ZZ Inspection of Lower Intestinal Tract, Via Natural or Artificial Opening Endoscopic (ICD-10-PCS; CPT 45378; principal; 2022-12-26 12:30)
DX: Z12.11 Encounter for screening for malignant neoplasm of colon (principal); K64.8 Other hemorrhoids
CPT/HCPCS: 45378; J2704; J7120

== ENCOUNTER 2023-01-09 19:22 | Emergency (ER) | payer OTHER, SELFPAY ==
[2023-01-09 20:28] VITALS: BP 175/82; PULSE 70; RESP 18; TEMP 36.3; O2SAT 100
[2023-01-09 22:31] VITALS: BP 157/89; PULSE 64; PULSE 66; RESP 15; TEMP 36.4; O2SAT 100
[2023-01-09 22:44] VITALS: PULSE 64; RESP 12; O2SAT 98
[2023-01-09 22:45] VITALS: PULSE 64; RESP 13; O2SAT 99
[2023-01-09 22:46] VITALS: BP 155/92; PULSE 66; RESP 13; O2SAT 98
--- NOTE | 2023-01-09 23:03 | ED.GENADULT ---
HPI - General Adult General Chief complaint: Unspecified Stated complaint: rectal bleeding Time Seen by Provider: 01/09/23 23:03 History of Present Illness HPI narrative: Patient is a 62-year-old female here with rectal bleeding. She states that she had a colonoscopy on 12/26/2022 and she has had couple small bowel movements but today was her 1st large bowel movement since the colonoscopy. She notes that she had significant blood in the toilet bowl with bright red blood on her toilet paper. She denies any associated abdominal pain or cramping. She denies any clot passage. She notes that she did have some rectal bleeding in the past which lasted about a month and this prompted her colonoscopy. At that time the colonoscopy did find that she had some nonbleeding internal hemorrhoids. She denies any history of any liver disease or alcohol use. She denies any blood thinner use. She does note that she contacted the GI clinic today and they recommended she come into the emergency department for evaluation. She denies any current abdominal pain, rectal pain, fever, chills. Related Data Allergies Allergy/AdvReac Type Severity Reaction Status Date / Time No Known Allergies Allergy Verified 12/26/22 11:24 Review of Systems Review of Systems: All systems reviewed & are unremarkable except as noted in HPI and below PMFSH Past Medical History Medical History No pertinent past medical history Surgical History Surgical History No pertinent past surgical history Social History Social History Smoking status: Never smoker Alcohol intake: never Substance use: never Living arrangements: with family Gender identity (if verbalized by the patient): Female Spiritual care concerns: No Exam Narrative: GENERAL: Well-appearing, well-nourished, and in no acute distress. HEAD: Normocephalic, atraumatic. EYES: PERRLA and EOMI. ENT: Nares clear. Mucous membranes moist. NECK: Supple. CHEST: Clear to auscultation. No respiratory distress. HEART: Regular rate and rhythm. Normal peripheral pulses. ABDOMEN: Soft, nontender, nondistended. RECTAL: Exam performed with RN as occupational nurse. Skin takes noted at the 9 o'clock and 12 o'clock position, no active fissure appreciated, nontender rectal exam, no active rectal bleeding appreciated. No external hemorrhoids appreciated, unable to appreciate internal hemorrhoids on my exam. EXTREMITIES: Normal range of motion. No edema. SKIN: Warm, dry, no rash. NEURO: No focal deficits. Alert and oriented x3. PSYCH: Normal mood and affect. Course Course Emergency Course: Chart review performed. Patient here with rectal bleeding. Colonoscopy report from 12/26/[address] Urias, they found multiple medium sized uncomplicated internal hemorrhoids seen in rectum, no active bleeding. Patient seen evaluated, in no acute distress. No abdominal tenderness, hemodynamically stable. She had 1 episode of rectal bleeding after a firm bowel movement. On rectal exam she has no active bleeding and she has a nontender abdominal exam. Believe that this is likely attributed to her internal hemorrhoids which she is aware of. At this time I did not believe that lab work and imaging is indicated. Advised stool softeners and increase fiber intake. Advised follow-up with her GI doctor and primary care doctor next week. The results of pertinent diagnostic studies and exam findings were discussed. The patient?s provisional diagnosis and plan of care were discussed with the patient and present family. The patient and/or present family expressed understanding of the diagnosis and plan. The nurse was instructed to provide written instructions and appropriate follow-up information. The patient understands their need and responsibility to obtain addit
[2023-01-09 23:05] VITALS: PULSE 68; RESP 13; O2SAT 98
== END 2023-01-10 00:10 | disposition home or self-care (01) ==
PROVIDERS: Emergency Provider Student in an Organized Health Care Education/Training Program; PCP Physician Assistant
DX: K64.8 Other hemorrhoids (principal); K62.5 Hemorrhage of anus and rectum
CPT/HCPCS: 99284

== ENCOUNTER 2023-01-20 12:15 | Emergency (ER) | payer OTHER, SELFPAY ==
--- NOTE | ~2023-01-20 | US_ITS ---
EXAMINATION: US venous doppler [facility] DATE: 01/20/2023 14:56 INDICATION: swelling . TECHNIQUE: Grayscale images without and with compression and Doppler images of the right lower extrem ity veins were obtained. COMPARISON: None FINDINGS: The right common femoral vein, profunda (deep) femoral vein, femoral vein, popliteal vein, peroneal v ein, posterior tibial veins, gastrocnemius vein, and greater saphenous vein are patent. IMPRESSION: Patent right lower extremity veins. No evidence of deep venous thrombosis. Reviewed, dictated and finalized at location K. YARD SUPERVISOR
[2023-01-20 12:39] VITALS: BP 147/70; PULSE 73; RESP 18; TEMP 36.7; O2SAT 98
--- NOTE | 2023-01-20 14:24 | ED.EXTPRO ---
HPI - Extremity Problem General Chief complaint: Extremity Problem,Nontraumatic <Sulma Prather, ASSISTANT FRONT OFFICE MANAGER - Last Filed: 01/20/23 14:26> Stated complaint: swollen lower extremtities <Sulma Prather ASSISTANT FRONT OFFICE MANAGER - Last Filed: 01/20/23 14:26> Time Seen by Provider: 01/20/23 15:49 <Sulma Donahue July ASSISTANT FRONT OFFICE MANAGER - Last Filed: 01/20/23 14:26> Source: patient <Ricky Leo DO - Last Filed: 01/23/23 05:02> Limitations: no limitations <Ricky Leo DO - Last Filed: 01/23/23 05:02> History of Present Illness HPI Narrative: Raegan Gregg is a 62 y/o female who presents with complaints of pain/ swelling to right lower extremity for months that is now getting worse. She states the pain is getting worse with walking and palpation Pitting edema wtih erythema noted to the right lower leg Denies fever chills. <Sulma Donahue July, ASSISTANT FRONT OFFICE MANAGER - Last Filed: 01/20/23 14:26> Patient presents to the emergency department complaining of right lower extremity swelling. Patient states this has been going on for months and has not gotten better. Patient admits to having an ultrasound done in the past and was told she does not have any blood clots. Patient does not know what caused the swelling. Patient admits to using ice in addition to compression stockings but has not been elevating her extremity or wearing the compression stockings regularly. Patient admits to seeing her primary care physician about this and has an upcoming appointment for re-evaluation. Patient states that it feels slightly more tight throughout her leg as the swelling worsens. Patient denies any abrupt worsening rather just has not gone away prompting her to seek further evaluation. Patient denies history of cancer, weight loss, recent injuries, recent illness, fever, chest pain, shortness of breath, dysuria, hematuria, urinary frequency, urinary urgency, melena, hematochezia, history of liver disease, history kidney disease, history of heart disease. <Ricky Leo DO - Last Filed: 01/23/23 05:02> Related Data Allergies/Adverse reactions: Allergies Allergy/AdvReac Type Severity Reaction Status Date / Time No Known Allergies Allergy Verified 01/20/23 15:18 <Sulma Prather, ASSISTANT FRONT OFFICE MANAGER - Last Filed: 01/20/23 14:26> Review of Systems Review of Systems: A 10 system review of systems was completed on the patient and is negative except for what is stated in the HPI. Nursing and ancillary documentation was reviewed. <Ricky Leo DO - Last Filed: 01/23/23 05:02> PMFSH Past Medical History Medical History: Medical History No pertinent past medical history <Sulma Prather, ASSISTANT FRONT OFFICE MANAGER - Last Filed: 01/20/23 14:26> Surgical History Surgical History: Surgical History No pertinent past surgical history <Sulma Prather, ASSISTANT FRONT OFFICE MANAGER - Last Filed: 01/20/23 14:26> Social History Social History: Social History Smoking status: Never smoker Alcohol intake: never Substance use: never Living arrangements: with family Gender identity (if verbalized by the patient): Female Spiritual care concerns: No <Sulma Prather, ASSISTANT FRONT OFFICE MANAGER - Last Filed: 01/20/23 14:26> Comments At time of signature, I have reviewed and agree with nursing past medical, surgical, social and family history unless otherwise noted. Please see the nursing chart for further information. There is no relevant family history pertinent to the presenting complaint. <Ricky Leo DO - Last Filed: 01/23/23 05:02> Exam Narrative: CONST: No acute distress. Well nourished. HENMT: Head is normocephalic and atraumatic. Moist mucous membranes. No posterior oropharynx erythema. EYES: No conjunctival icterus, injection, or pallor. PERRL. NECK: No meningeal signs. RESP: Able to speak in full sentences. Normal respiratory eff
[2023-01-20 14:41] VITALS: BP 149/79; PULSE 77; RESP 18; TEMP 36.5; O2SAT 100
[2023-01-20 15:37] LABS: Basophils Percent Auto 0.6 % (0.2-1.2); Eosinophils Absolute Auto 0.2 K/mm3 (0-0.3); Eosinophils Percent Auto 4.5 % (0-4.4); Hemoglobin 11.1 g/dL (12.0-15.0); Immature Granulocyte Absolute 0.02 K/mm3 (0.00-0.031); Immature Granulocyte Percent A 0.4 % (0-0.5); Lymphocytes Absolute Auto 2.06 K/mm3 (0.9-3.2); Lymphocytes Percent Auto 38.5 % (18.3-44.2); Mean Corpuscular Hemoglobin 25.1 pg (26-34); Mean Corpuscular Volume 83.7 fl (80-100); Mean Platelet Volume 10.6 fl (7.4-10.4); Monocytes Absolute Auto 0.4 K/mm3 (0.1-0.6); Monocytes Percent Auto 7.7 % (2.6-8.5); Neutrophils Absolute Auto 2.6 K/mm3 (1.3-6.7); Neutrophils Percent Auto 48.3 % (45.5-73.1); Platelet Count Result 226 k/mm3 (150-375); Red Blood Count 4.42 M/mm3 (4.2-5.4); Red Cell Distribution Width 14.4 % (11.5-14.5); White Blood Count 5.4 K/mm3 (4.5-10.0)
[2023-01-20 15:47] LABS: Anion Gap 8 mmol/L (8-16); Blood Urea Nitrogen 19 mg/dL (7-17); Carbon Dioxide 25 mmol/L (22-30); Chloride 107 mmol/L (98-107); Estimated CRCL calculation 62 ml/min; Estimated Glomerular Filt Rate > 60; Glucose 95 mg/dL (65-110); Potassium 4.4 mmol/L (3.4-5.0); Sodium 140 mmol/L (137-145)
[2023-01-20 15:49] LABS: Prothrombin Time 13.6 Seconds (11.1-14.7)
[2023-01-20 15:50] LABS: Partial Thromboplastin Time 26.1 SECONDS (22.3-36.8)
== END 2023-01-20 16:43 | disposition home or self-care (01) ==
PROVIDERS: Nurse Practitioner Family; Emergency Provider Student in an Organized Health Care Education/Training Program; PCP Physician Assistant
DX: R60.0 Localized edema (principal)
CPT/HCPCS: 36415; 80048; 85025; 85610; 85730; 93971; 99284

== ENCOUNTER 2023-05-28 09:48 | Outpatient (CLI) | payer OTHER, SELFPAY ==
--- NOTE | ~2023-05-28 | MM_ITS ---
EXAMINATION: MM screening judd BI w alondra HISTORY: Screening TECHNIQUE: Craniocaudal and mediolateral oblique 3-D tomosynthesis images were obtained and synthetic 2-D images were generated. CAD analysis was submitted and interpreted. COMPARISON: 02/24/2020 BREAST PARENCHYMAL COMPOSITION: There are scattered areas of fibroglandular density. FINDINGS: There is no evidence of suspicious mass, calcification, or architectural distortion to sugg est malignancy in either breast. There has been no suspicious interval change. IMPRESSION: 1. No mammographic evidence of malignancy. 2. Recommend routine screening mammography in one year. BI-RADS Category 1: Negative Reviewed, dictated and finalized at location A.
== END 2023-05-28 09:49 | disposition home or self-care (01) ==
PROVIDERS: PCP Physician Assistant; Visit Provider Physician Assistant
DX: Z12.31 Encounter for screening mammogram for malignant neoplasm of breast (principal)
CPT/HCPCS: 77063; 77067

== ENCOUNTER 2023-06-02 08:12 | Outpatient (CLI) | payer OTHER, SELFPAY ==
--- NOTE | ~2023-06-02 | US_ITS ---
EXAMINATION: US arterial ankle brachial ind DATE: 06/02/2023 08:55 INDICATION: Peripheral vascular disease TECHNIQUE: Segmental pressures and plethysmographic and Doppler waveforms of the brachial and lower e xtremity arteries were obtained. COMPARISON: None. FINDINGS: Right and left brachial artery pressures of 129 mm Hg and 118 mm Hg, respectively, are concordant (no rmal difference <= 30 mmHg). The right ankle-brachial index (CLAUDINE) is 1.30 (normal >= 0.9-1.0). The right great toe-brachial index (TBI) is 0.62 (normal >= 0.65). Arterial Doppler waveforms are triphasic with brisk systolic upstroke s at both right posterior tibial and dorsalis pedis arteries. The left CLAUDINE is 1.33. The left TBI is 0.70. Arterial Doppler waveforms are biphasic with brisk systol ic upstrokes at both left posterior tibial and dorsalis pedis arteries. IMPRESSION: 1. 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 2. No significant arterial occlusive disease to the left lower limb with normal left CLAUDINE and TBI. Reviewed, dictated and finalized at location A. IMPRESSION: 1. Mild arterial occlusive disease to the right lower limb with normal right AB I but minimally decreased right TBI. 2. No significant arterial occlusive disease to the left lower limb with normal left CLAUDINE and TBI.
== END 2023-06-02 08:13 | disposition home or self-care (01) ==
PROVIDERS: PCP Physician Assistant; Visit Provider Physician Assistant
DX: I73.9 Peripheral vascular disease, unspecified (principal)
CPT/HCPCS: 93922

== ENCOUNTER 2023-11-03 08:44 | Emergency (ER) | payer OTHER, SELFPAY ==
--- NOTE | ~2023-11-03 | XR_ITS ---
Right Shoulder Technique: AP and scapular Y views were obtained. Clinical History: Pain Findings: No fracture or dislocation is seen. Osseous alignment is anatomic. The glenohumeral and acr omioclavicular joint spaces are preserved. Soft tissues are unremarkable. Impression: Unremarkable right shoulder radiographs. Reviewed, dictated and finalized at [facility]. Impression: Unremarkable right shoulder radiographs.
[2023-11-03 08:50] VITALS: BP 133/74; PULSE 76; RESP 16; TEMP 36.5; O2SAT 100
--- NOTE | 2023-11-03 11:00 | ED.EXTPRO ---
HPI - Extremity Problem General Chief complaint: Extremity Problem,Nontraumatic Stated complaint: right shoulder pain Time Seen by Provider: 11/03/23 10:31 History of Present Illness HPI Narrative: This is a 62-year-old female with no pertinent past medical history who presents to the emergency department for evaluation of right shoulder pain. Patient states she was doing repetitive motions well at work and lifting heavy boxes and she felt a pain starting last week. Pain is localized in the anterior lateral aspect of her right shoulder. She has never had shoulder injuries or shoulder surgeries before. Was previously normal state of health. Denies any chest pain, shortness a breath, nausea, vomiting, headache, vision change, neck pain, weakness or fatigue. She has good obstetrician gynecologist strength states that whenever she moves her arm overhead her transport including the pain gets worse. Has not tried anything at home for symptom relief. Related Data Allergies Allergy/AdvReac Type Severity Reaction Status Date / Time No Known Allergies Allergy Verified 01/20/23 15:18 Review of Systems Review of Systems: As reviewed above in HPI [facility] Past Medical History Medical History No pertinent past medical history Surgical History Surgical History No pertinent past surgical history Social History Social History Smoking status: Never smoker Alcohol intake: never Substance use: never Living arrangements: with family Gender identity (if verbalized by the patient): Female Spiritual care concerns: No Exam Narrative: GENERAL: [Well-appearing, well-nourished, and in no acute distress.] HEAD: [Normocephalic, atraumatic.] EYES: [PERRLA and EOMI.] ENT: Nares clear, no rhinorrhea or epistaxis. Mucous membranes moist. NECK: Supple. CHEST: [Clear to auscultation. No respiratory distress.] HEART: [Regular rate and rhythm]. No murmur heard. [Normal peripheral pulses.] ABDOMEN: [Soft, nondistended], [nontender], [No rigidity or guarding] EXTREMITIES: There is focal tenderness in the anterior lateral acromial process on the right side, no step-offs, deformities. Full range of motion passively but active range of motion is limited to 90? and then painful afterwards with abduction and flexion forward. Elbow flexion extension, wrist flexion extension and obstetrician gynecologist strength are full. Positive Neer's, Castro and lift-off testing. SKIN: Warm, dry, no rash. NEURO: [No focal deficits]. Alert and oriented [x3.] PSYCH: [Normal mood and affect.] Course Vital Signs Vital signs: Vital Signs Temperature 36.5 C 11/03/23 08:50 Pulse Rate 76 11/03/23 08:50 Respiratory Rate 16 11/03/23 08:50 Blood Pressure 133/74 11/03/23 08:50 Pulse Oximetry 100 11/03/23 08:50 Oxygen Delivery Room Air 11/03/23 08:50 Temperature 36.5 C 11/03/23 08:50 Pulse Rate 76 11/03/23 08:50 Respiratory Rate 16 11/03/23 08:50 Blood Pressure 133/74 11/03/23 08:50 Pulse Oximetry 100 11/03/23 08:50 Oxygen Delivery Room Air 11/03/23 08:50 MDM - Extremity (Nontraumatic) MDM Narrative Medical decision making narrative: This is a 62-year-old female presenting for atraumatic right shoulder pain. Patient states she has been doing repetitive heavy lifting at work and knows that over last week she has been having pain in the anterior lateral aspect of her right shoulder. Limited range of motion above 90? flexion and abduction of the shoulder. Good strength and sensation distally without any neuropathies or any neurovascular compromise on examination. She has focal tenderness over the bursa and AC joint on the right side. Positive Castro and Neer's testing. Clinically believe she is having impingement syndrome versus bursitis. Low suspicion intra shelton
[2023-11-03] MEDS: ACETAMINOPHEN 500 MG TABLET 1000 MG PO (11:25)
[2023-11-03] MEDS: methocarbamoL 750 MG TABLET PO (11:26)
[2023-11-03] MEDS: KETOROLAC 30 MG/ML VIAL (*BKC) IM (11:26)
[2023-11-03 11:51] VITALS: BP 130/78; PULSE 72; RESP 16; TEMP 36.6; O2SAT 100
== END 2023-11-03 11:53 | disposition home or self-care (01) ==
PROVIDERS: Emergency Provider Student in an Organized Health Care Education/Training Program; PCP Physician Assistant
DX: M75.51 Bursitis of right shoulder (principal)
CPT/HCPCS: 73030; 96372; 99283; A9270; J1885

== ENCOUNTER 2023-11-16 13:47 | Observation (INO) | payer OTHER, SELFPAY ==
--- NOTE | ~2023-11-16 | NM_ITS ---
EXAMINATION: NM rebekah stress w perfusion DATE: 11/17/2023 09:27 INDICATION: Chest pain TECHNIQUE: Rest images were obtained following intravenous administration of 10.3 mCi Tc99m tetrofosm in (Myoview). The patient was infused intravenously with Lexiscan (Regadenoson). Then, 33 mCi Tc99m t etrofosmin (Myoview) was administered intravenously, and stress images were obtained. Data was recons tructed into short axis and horizontal and vertical long axis SPECT images. Gated SPECT images were a lso obtained. COMPARISON: None. FINDINGS: There is no definite reversible or fixed perfusion abnormality to suggest ischemia or infar ction. There is normal left ventricular chamber size, wall motion and ejection fraction. Left ventr icular ejection fraction measures 63%. IMPRESSION: 1. Normal myocardial perfusion at rest and during stress. 2. Left ventricular ejection fraction measuring 63%. Reviewed, dictated and finalized at location B.
--- NOTE | ~2023-11-16 | CT_ITS ---
EXAMINATION: CTA chest abdomen pelvis DATE: 11/16/2023 20:04 INDICATION: r/o dissection . TECHNIQUE: Computed tomography (CT) of the chest, abdomen, and pelvis was performed with 100 mL Omnip aque-350 intravenous contrast in the arterial phase. Automated exposure control and iterative reconst ruction technique were employed. The dose-length product was 740.96 mGy-cm. COMPARISON: X-ray chest, same date; CT abdomen pelvis 08/17/2020 FINDINGS: CHEST: Thoracic aorta: No significant dilation. No dissection. Lung parenchyma and airways: Lungs and airways are clear. Thoracic inlet, axillae and chest wall: No thyroid or soft tissue mass. No axillary lymphadenopathy. Mediastinum: No mass or lymphadenopathy. Heart and pericardium: Normal heart size. No pericardial effusion. Coronary artery calcifications: Absent. Pleura: No effusion or mass. Thoracic bones: No acute osseous finding in the chest. ABDOMEN/PELVIS: Liver: Stable 8 mm right lobe cyst and 1.7 cm right lobe cyst/hemangioma. Biliary/Gallbladder: Gallbladder is normal. No bile duct dilation. Pancreas: No mass or duct dilation. Spleen: Normal. Adrenals:No mass. Kidneys: No suspicious mass, obstructing stone, or hydronephrosis. GI tract: Mild distal esophageal and gastric wall edema. No small or large bowel dilation. Normal rigoberto endix. Mesentery/Peritoneum: No ascites, mass, or free air. Retroperitoneum: No mass Pelvis: Normal uterus and left ovary. Stable 1.8 cm fat-containing right adnexal lesion, likely repre senting a dermoid. Soft Tissues: Soft tissues and body wall unremarkable. Abdominopelvic bones: No acute osseous finding in the abdomen/pelvis. IMPRESSION: Mild esophagitis/gastritis. Otherwise unremarkable CT chest, abdomen, and pelvis findings. Reviewed, dictated and finalized at location K.
--- NOTE | ~2023-11-16 | XR_ITS ---
EXAMINATION: XR chest 2V DATE: 11/16/2023 15:07 INDICATION: Chest tightness. TECHNIQUE: Frontal and lateral views of the chest were obtained. COMPARISON: Chest 2 views 02/20/2022 FINDINGS: There is mild scarring at right lung apex. No pleural effusion or pneumothorax. The heart s ize is normal. IMPRESSION: 1. Stable mild scarring at right lung apex. Reviewed, dictated and finalized at location A.
--- NOTE | 2023-11-16 13:51 | ECG_ITS ---
Test Date: 2023-11-16 13:56:22 Measurements Intervals [place] Rate: 123 P: 0 TX: 0 QRS: 48 QRSD: 75 T: 50 QT: 299 QTc: 429 Interpretive Statements SUPRAVENTRICULAR TACHYCARDIA ST-T WAVE ABNORMALITY IN ANTEROLAT/INF LEADS- CONSIDER ISCHEMIA BASELINE ARTIFACT- I, AVL, V5 ABNORMAL ECG No previous ECG available for comparison Electronically Signed On 11-16-2023 14:16:19 CDT by Brenden Patterson D.O.
--- NOTE | 2023-11-16 14:17 | ED.URI ---
HPI - URI/Sore Throat General Chief Complaint: Upper Respiratory Infection <Sumi Goetz PA-C - Last Filed: 11/18/23 09:56> Stated Complaint: BODY ACHES,URI,SORE THROAT,CHEST HEAVY <Sumi Goetz PA-C - Last Filed: 11/18/23 09:56> Time Seen by Provider: 11/16/23 14:17 <Sumi Goetz PA-C - Last Filed: 11/18/23 09:56> Focused HPI: this is a 62-year-old female that presents to the emergency department for cold symptoms. Present over the last several days. Reports sore throat, congestion, body aches. Reports her chest feels heavy. Denies shortness of breath. GENERAL: Well-appearing, well-nourished, and in no acute distress. HEAD: Normocephalic, atraumatic. CHEST: Clear to auscultation. ?No respiratory distress. HEART: Regular rate and rhythm.? NEURO: ?Alert and oriented x3. Patient screened in triage and initial orders placed.? ?Additional care and disposition to be based upon?diagnostic testing and treatment. <Sumi Goetz PA-C - Last Filed: 11/18/23 09:56> History of Present Illness HPI Narrative: This is a 62-year-old female with no significant pertinent past medical history presents to the emergency department a chief complaint of chest pressure sensation and heaviness this morning. She states she woke up with this sensation. Associated lightheadedness feeling like she is going to pass out. No nauseousness, vomiting, shortness of breath. She was recently seen and evaluated in this emergency department by myself several weeks ago for some right shoulder pain. She was diagnosed with impingement and bursitis and was given Naprosyn. She states she feels remarkably better from the shoulder perspective and is able to freely move the right upper extremity now. She states this feels this similar and not related. Over the past few days placement in complaining of some myalgias, body aches, cough and congestion. She took a COVID test at home which was negative. <Mj Zamudio MD - Last Filed: 11/16/23 21:40> Related Data Home Medications: Home Medications Medication Instructions Recorded Confirmed No Home Medications 11/16/23 11/16/23 <Sumi Goetz PA-C - Last Filed: 11/18/23 09:56> Allergies/Adverse Reactions: Allergies Allergy/AdvReac Type Severity Reaction Status Date / Time No Known Allergies Allergy Verified 11/16/23 22:58 <Sumi Goetz PA-C - Last Filed: 11/18/23 09:56> Review of Systems Review of Systems: As reviewed above in HPI <Mj Zamudio MD - Last Filed: 11/16/23 21:40> All systems reviewed & are unremarkable except as noted in HPI and below <Sumi Goetz PA-C - Last Filed: 11/18/23 09:56> PMFSH Past Medical History Medical History: Medical History No pertinent past medical history <Sumi Goetz PA-C - Last Filed: 11/18/23 09:56> Surgical History Surgical History: Surgical History No pertinent past surgical history <Sumi Goetz PA-C - Last Filed: 11/18/23 09:56> Social History Social History: Social History Smoking status: Never smoker Alcohol intake: never Substance use: never Substance use type: does not use Do You Feel Safe in your Home?: Yes Lack of Transportation: No Lack of Food: Never True Current Housing: I Have Housing Concerned About Future Housing: No Difficulty Paying Gas/Electric Bills: No Difficulty Paying for Meds: No Currently Unemployed: No Education: Associate Degree Difficulty w/ Childcare or Family Care: No Living arrangements: with family Gender identity (if verbalized by the patient): Female Spiritual care concerns: No <Sumi Goetz PA-C - Last Filed: 11/18/23 09:56> Exam Narrative: GENERAL: [Well-appearing, well-nourishe
[2023-11-16 14:57] LABS: Basophils Percent Auto 0.4 % (0.2-1.2); Eosinophils Absolute Auto 0.2 K/mm3 (0-0.3); Eosinophils Percent Auto 2.7 % (0-4.4); Hematocrit 38.9 % (37.0-47.0); Immature Granulocyte Absolute 0.06 K/mm3 (0.00-0.031); Immature Granulocyte Percent A 0.8 % (0-0.5); Lymphocytes Absolute Auto 2.11 K/mm3 (0.9-3.2); Lymphocytes Percent Auto 29.9 % (18.3-44.2); Mean Corpuscular HGB Conc 30.8 g/dl (32-36); Mean Corpuscular Hemoglobin 25.5 pg (26-34); Mean Corpuscular Volume 82.8 fl (80-100); Mean Platelet Volume 10.7 fl (7.4-10.4); Monocytes Absolute Auto 0.7 K/mm3 (0.1-0.6); Monocytes Percent Auto 9.3 % (2.6-8.5); Neutrophils Percent Auto 56.9 % (45.5-73.1); Platelet Count Result 221 k/mm3 (150-375); White Blood Count 7.1 K/mm3 (4.5-10.0)
[2023-11-16 15:10] LABS: Anion Gap 9 mmol/L (4-12); Blood Urea Nitrogen 13 mg/dL (7-17); Calcium 9.6 mg/dL (8.4-10.2); Carbon Dioxide 27 mmol/L (22-30); Chloride 102 mmol/L (98-107); Estimated Glomerular Filt Rate > 60; Glucose 113 mg/dL (65-110); Potassium 4.4 mmol/L (3.4-5.0); Sodium 138 mmol/L (137-145)
[2023-11-16 15:25] LABS: Strep Group A RT-PCR NOT DETECTED (Negative)
[2023-11-16 15:28] LABS: Troponin I < 0.012 ng/mL (0.000-0.034)
[2023-11-16 15:37] LABS: Influenza A QL RT-PCR Negative (Negative); Influenza B QL RT-PCR Negative (Negative); RSV RNA, RT-PCR Negative (Negative); SARS-CoV-2 RNA PCR Negative (Negative)
[2023-11-16 17:26] VITALS: BP 117/74; PULSE 85; RESP 16; TEMP 36.3; O2SAT 100
[2023-11-16 19:43] VITALS: BP 125/81; TEMP 36.6
--- NOTE | 2023-11-16 19:48 | ECG_ITS ---
Test Date: 2023-11-16 19:50:08 Measurements Intervals [place] Rate: 72 P: 71 MN: 201 QRS: 61 QRSD: 70 T: 53 QT: 382 QTc: 420 Interpretive Statements SINUS RHYTHM BASELINE ARTIFACT- I, II, III, AVR, AVL, AVF NORMAL ECG Compared to ECG 11/16/2023 13:56:22 [address]M NOW PRESENT ST-T WAVE ABNORMALITY NOW RESOLVED Electronically Signed On 11-16-2023 20:15:04 CDT by Brenden Patterson D.O.
--- NOTE | 2023-11-16 19:48 | ED.URI ---
HPI - URI/Sore Throat General Chief Complaint: Upper Respiratory Infection Stated Complaint: BODY ACHES,URI,SORE THROAT,CHEST HEAVY Time Seen by Provider: 11/16/23 14:17 History of Present Illness HPI Narrative: This is a 62-year-old female with no significant pertinent past medical history presents to the emergency department a chief complaint of chest pressure sensation and heaviness this morning. She states she woke up with this sensation. Associated lightheadedness feeling like she is going to pass out. No nauseousness, vomiting, shortness of breath. She was recently seen and evaluated in this emergency department by myself several weeks ago for some right shoulder pain. She was diagnosed with impingement and bursitis and was given Naprosyn. She states she feels remarkably better from the shoulder perspective and is able to freely move the right upper extremity now. She states this feels this similar and not related. Over the past few days placement in complaining of some myalgias, body aches, cough and congestion. She took a COVID test at home which was negative. Related Data Allergies Allergy/AdvReac Type Severity Reaction Status Date / Time No Known Allergies Allergy Verified 01/20/23 15:18 Review of Systems Review of Systems: As reviewed above in HPI [facility] Past Medical History Medical History No pertinent past medical history Surgical History Surgical History No pertinent past surgical history Social History Social History Smoking status: Never smoker Alcohol intake: never Substance use: never Living arrangements: with family Gender identity (if verbalized by the patient): Female Spiritual care concerns: No Exam Narrative: GENERAL: [Well-appearing, well-nourished, and in no acute distress.] HEAD: [Normocephalic, atraumatic.] EYES: [PERRLA and EOMI.] ENT: Nares clear, no rhinorrhea or epistaxis. Mucous membranes moist. NECK: Supple. CHEST: [Clear to auscultation. No respiratory distress.] HEART: [Regular rate and rhythm]. No murmur heard. 2+ peripheral pulses in all extremities, warm extremities. ABDOMEN: [Soft, nondistended], [nontender], [No rigidity or guarding] EXTREMITIES: Full range of motion bilateral upper and lower extremities. No pain on palpation of the major joint lines. No edema in the extremities. SKIN: Warm, dry, no rash. NEURO: [No focal deficits]. Alert and oriented [x3.] PSYCH: [Normal mood and affect.] Course Vital Signs Vital signs: Vital Signs Temperature 36.3 C L 11/16/23 17:26 Pulse Rate 85 11/16/23 17:26 Respiratory Rate 16 11/16/23 17:26 Blood Pressure 117/74 11/16/23 17:26 Pulse Oximetry 100 11/16/23 17:26 Temperature 36.3 C L 11/16/23 17:26 Pulse Rate 85 11/16/23 17:26 Respiratory Rate 16 11/16/23 17:26 Blood Pressure 117/74 11/16/23 17:26 Pulse Oximetry 100 11/16/23 17:26 MDM - URI/Sore Throat MDM Narrative Medical decision making narrative: This is a 62-year-old female presenting to the ED for evaluation of chest pressure sensation associated with 2 days of body aches, myalgias, cough and congestion. Chest pressure only started today and she describes as substernal and nonradiating. Her previous right-sided shoulder pain is resolved. No significant cardiac disease history or any other significant comorbidities. On my initial assessment the patient she is awake alert oriented has normal reassuring vital signs of any tachycardia, hypoxia, fever or blood pressure concerns. She has equal pulses, nontender abdomen, does sound congested. On review of the EMR patient had a triage EKG that was very concerning conducted at 1:[address] that shows diffuse ST segment depressions in the inferior lateral leads with no reciprocal ST seg
[2023-11-16 20:22] VITALS: BP 125/81; PULSE 71; RESP 15; TEMP 36.8; O2SAT 100
[2023-11-16] MEDS: LACTATED RINGERS 1,000 ML 999 ML IV CONT (20:38)
[2023-11-16 21:03] LABS: Troponin I 0.012 ng/mL (0.000-0.034)
[2023-11-16 21:57] VITALS: BP 155/76; PULSE 76; RESP 18; TEMP 36.7; O2SAT 100
[2023-11-16] MEDS: ASPIRIN 325 MG TABLET PO (22:00)
[2023-11-16 22:30] VITALS: BP 137/70; PULSE 72; PULSE 90; RESP 20; TEMP 36.6; O2SAT 100; BMI 29.0
--- NOTE | 2023-11-16 22:36 | ADMGEN ---
This patient, Raegan Gregg, was admitted to IMU Room 210-01 @ 2230. Patient/family oriented to hospital policies and general routines including ID bracelet, bed and alarms, visiting hours, pain management, procedures, bathroom and other care routines, personal items, smoking policy, room service/diet, and visiting hours. Information on how to activate the Rapid Response Team has been discussed. Patient/Family are encouraged to report perceived risks to care and to ask questions if they do not understand what they are told or what they should do.
--- NOTE | 2023-11-16 23:52 | PM.IMHP ---
H&P: HPI History of Present Illness Date/Time: 11/16/23 23:52 Chief Complaint: chest pain Narrative: this is a 62-year-old female with no significant past medical history. Patient presents to the emergency room with complaints of retrosternal chest pain, has had cold-like symptoms has been taking Advil and Tylenol at home. Denies any nausea vomiting or abdominal epigastric pain, no fevers no rigors no chills. In emergency room preliminary workup has been essentially nonrevealing EXAMINATION: XR chest 2V DATE: 11/16/2023 15:07 INDICATION: Chest tightness. TECHNIQUE: Frontal and lateral views of the chest were obtained. COMPARISON: Chest 2 views 02/20/2022 FINDINGS: There is mild scarring at right lung apex. No pleural effusion or pneumothorax. The heart size is normal. IMPRESSION: 1. Stable mild scarring at right lung apex. EXAMINATION: CTA chest abdomen pelvis DATE: 11/16/2023 20:04 INDICATION: r/o dissection . TECHNIQUE: Computed tomography (CT) of the chest, abdomen, and pelvis was performed with 100 mL Omnipaque-350 intravenous contrast in the arterial phase. Automated exposure control and iterative reconstruction technique were employed. The dose-length product was 740.96 mGy-cm. COMPARISON: X-ray chest, same date; CT abdomen pelvis 08/17/2020 FINDINGS: CHEST: Thoracic aorta: No significant dilation. No dissection. Lung parenchyma and airways: Lungs and airways are clear. Thoracic inlet, axillae and chest wall: No thyroid or soft tissue mass. No axillary lymphadenopathy. Mediastinum: No mass or lymphadenopathy. Heart and pericardium: Normal heart size. No pericardial effusion. Coronary artery calcifications: Absent. Pleura: No effusion or mass. Thoracic bones: No acute osseous finding in the chest. ABDOMEN/PELVIS: Liver: Stable 8 mm right lobe cyst and 1.7 cm right lobe cyst/hemangioma. Biliary/Gallbladder: Gallbladder is normal. No bile duct dilation. Pancreas: No mass or duct dilation. Spleen: Normal. Adrenals:No mass. Kidneys: No suspicious mass, obstructing stone, or hydronephrosis. GI tract: Mild distal esophageal and gastric wall edema. No small or large bowel dilation. Normal appendix. Mesentery/Peritoneum: No ascites, mass, or free air. Retroperitoneum: No mass Pelvis: Normal uterus and left ovary. Stable 1.8 cm fat-containing right adnexal lesion, likely representing a dermoid. Soft Tissues: Soft tissues and body wall unremarkable. Abdominopelvic bones: No acute osseous finding in the abdomen/pelvis. IMPRESSION: Mild esophagitis/gastritis. Review of Systems Review of Systems: chest pain PMFSH Past Medical History Medical History No pertinent past medical history Surgical History Surgical History No pertinent past surgical history Social History Social History Smoking status: Never smoker Alcohol intake: never Substance use: never Substance use type: does not use Do You Feel Safe in your Home?: Yes Lack of Transportation: No Lack of Food: Never True Current Housing: I Have Housing Concerned About Future Housing: No Difficulty Paying Gas/Electric Bills: No Difficulty Paying for Meds: No Currently Unemployed: No Education: Associate Degree Difficulty w/ Childcare or Family Care: No Living arrangements: with family Gender identity (if verbalized by the patient): Female Spiritual care concerns: No Meds Home Medications and Allergies Home Medications Medication Instructions Recorded Confirmed Type No Home Medications 11/16/23 11/16/23 History Allergies Allergy/AdvReac Type Severity Reaction Status Date / Time No Known Allergies Allergy Verified 11/16/23 22:58 Vital Signs Vital Signs - 24 hr 11/16/23 17:26 11/16/23 19:
[2023-11-17] VITALS (11 sets, daily range): BP systolic 132–149; BP diastolic 59–79; PULSE 65–84; RESP 18–20; TEMP 36.2–36.6; O2SAT 98–100
--- NOTE | 2023-11-17 01:29 | EST_ITS ---
Patient Info Name: Raegan Gregg Age: 62 years : 1960 Gender: Female Ht: 70 in Wt: 202 lbs BSA: 2.15 m2 HR: 74 bpm BP: 151 / 74 mmHg Exam Date: 11/17/2023 8:25 AM Exam Location: Echo Lab Patient Status: Outpatient Admit Date: 11/16/2023 Staff Ordering Physician: Oliver Branham MD Attending Provider: Oliver Branham MD Exercise Technologist: Jaquelin Chawla [facility] Exercise Physician: Brenden Patterson DO Exam Type: CA stress rebekah w NM Study Info A regadenoson stress test was performed. Summary 1. 1. Negative lexiscan stress test for ischemic ST changes by ECG criteria. 2. 2. Baseline hypertension. 3. 3. Nuclear scan to follow and will be reported separately. Please correlate with it. 4. 4. Patient informed of the above results. Protocol: Lexiscan Stress ECG Details Stage: REST Duration (min): 2 min : 50 sec HR (bpm): 74 SBP (mmHg): 151 DBP (mmHg): 74 Stage: REST Duration (min): 11 min : 44 sec HR (bpm): 72 SBP (mmHg): 151 DBP (mmHg): 74 Stage: STAGE 1 Duration (min): 1 min : 0 sec HR (bpm): 100 SBP (mmHg): 165 DBP (mmHg): 101 Stage: RECOVERY Duration (min): 1 min : 0 sec HR (bpm): 100 SBP (mmHg): 165 DBP (mmHg): 101 Stage: RECOVERY Duration (min): 2 min : 0 sec HR (bpm): 96 SBP (mmHg): 165 DBP (mmHg): 101 Stage: RECOVERY Duration (min): 3 min : 0 sec HR (bpm): 89 SBP (mmHg): 198 DBP (mmHg): 92 Stage: RECOVERY Duration (min): 4 min : 0 sec HR (bpm): 88 SBP (mmHg): 198 DBP (mmHg): 92 Stage: RECOVERY Duration (min): 4 min : 41 sec HR (bpm): 87 SBP (mmHg): 162 DBP (mmHg): 77 Rest HR: 72 bpm Peak HR: 103 bpm Rest Sys BP: 151 mmHg Peak Sys BP: 198 mmHg Max Pred HR: 159 bpm % Max Pred HR: 65 % Target HR: 135 bpm Max RPP: 20,394 bpm*mmHg Termination Reason: Completed protocol Cardiac Symptoms: Shortness of breath Total Time: 1 min : 0 sec Rest Pepe BP: 74 mmHg Peak Pepe BP: 92 mmHg Total Dose: 0.4 mg Resting ECG Sinus rhythm. Stress ECG No ST changes. Arrhythmias None. Report Signatures
[2023-11-17 03:56] LABS: Troponin I 0.016 ng/mL (0.000-0.034)
[2023-11-17] MEDS: BELLADONNA ALK/PHENOB ELIX 10 ML, MAG HYDROX/ALUMINUM HYD/SIMETH 30 ML, LIDOCAINE HCL 2... PO (03:56)
[2023-11-17] MEDS: SUCRALFATE SUSP 100 MG/ML 10 ML UDC 1000 MG PO ×2 (06:05→11:05)
--- NOTE | 2023-11-17 08:11 | PM.CNCAR ---
Assessment and Plan Assessment and plan (1) Chest pain: Code(s): R07.9 - Chest pain, unspecified Status: Acute Assessment and Plan: She has been r/o for IN by serial troponin and EKG. Could be related to gastritis/esophagitis seen on CT Abd. Obtain lexiscan myoview stress test. History of Present Illness History of Present Illness Consult date/time: 11/17/23 08:12 Reason For Visit: Chest pain Narrative: 62 yr old woman presents to ER with mid chest pressure. She has no cardiac history. Reports she had mid chest pain with palpitations yesterday along with URI like symptoms. She did take Advil at home. 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 No longer having chest pains now. Denies sob, orthopnea, PND, edema, dizziness. Review of Systems Constitutional: Constitutional: Reports as per HPI, Denies chills and Denies fever(s) Cardiovascular: Cardiovascular: Reports as per HPI, Reports chest pain and Reports irregular heart rhythm Respiratory: Respiratory: Reports as per HPI and Denies dyspnea Gastrointestinal: Gastrointestinal: Reports as per HPI and Denies abdominal pain Genitourinary: Genitourinary: Reports as per HPI and Denies dysuria Musculoskeletal: Musculoskeletal: Reports as per HPI Neurologic: Reports as per HPI, Denies dizziness and Denies syncope PMF Past Medical History Medical History No pertinent past medical history Surgical History Surgical History No pertinent past surgical history Social History Social History Smoking status: Never smoker Alcohol intake: never Substance use: never Substance use type: does not use Do You Feel Safe in your Home?: Yes Lack of Transportation: No Lack of Food: Never True Current Housing: I Have Housing Concerned About Future Housing: No Difficulty Paying Gas/Electric Bills: No Difficulty Paying for Meds: No Currently Unemployed: No Education: Associate Degree Difficulty w/ Childcare or Family Care: No Living arrangements: with family Gender identity (if verbalized by the patient): Female Spiritual care concerns: No Meds Home Medications and Allergies Home Medications Medication Instructions Recorded Confirmed Type No Home Medications 11/16/23 11/16/23 History Allergies Allergy/AdvReac Type Severity Reaction Status Date / Time No Known Allergies Allergy Verified 11/16/23 22:58 Vital Signs Vital Signs - 24 hr 11/16/23 17:26 11/16/23 19:43 11/16/23 19:43 Temperature 97.3 F L 97.9 F Pulse Rate 85 Respiratory Rate 16 Blood Pressure 117/74 125/81 Pulse Oximetry 100 Oxygen Delivery Room Air 11/16/23 20:22 11/16/23 21:57 11/16/23 22:30 Temperature 98.2 F 98.1 F Pulse Rate 71 76 90 Respiratory Rate 15 18 Blood Pressure 125/81 155/76 H Pulse Oximetry 100 100 Oxygen Delivery 11/16/23 22:30 11/16/23 22:30 11/17/23 00:00 Temperature 98 F Pulse Rate 72 73 Respiratory Rate 20 Blood Pressure 137/70 Pulse Oximetry 100 Oxygen Delivery Room Air 11/17/23 00:00 11/17/23 00:46 11/17/23 02:00 Temperature 97.8 F Pulse Rate 65 71 Respiratory Rate 20 Blood Pressure 140/59 L Pulse Oximetry 100 Oxygen Delivery Room Air 11/17/23 04:00 11/17/23 04:00 11/17/23 06:16 Temperature 97.6 F Pulse Rate 68 84 Respiratory Rate 20 Blood Pressure 132/71 Pulse Oximetry 98 Oxygen Delivery Room Air Exam Const: General: cooperative, healthy appearing and comfortable Resp: Auscultation: clear to auscultation bilaterally, no crackles, no rales, no rhonchi and no wheezes Cardio: Rate: regular rate Rhythm: regular rhythm Heart sounds: no murmurs Peripheral pulses: dorsalis pedis present GI: GI Palp: No abdominal tenderne
--- NOTE | 2023-11-17 14:45 | PM.IMPN ---
Progress Note: A&P Assessment and Plan (1) Chest pain: Code(s): R07.9 - Chest pain, unspecified Status: Acute Assessment and Plan: Placed in observation in IMU Serial troponin Stress test shows normal myocardial perfusion at rest and during stress with left ventricular ejection fraction 63. Pending on nuclear scan reading. Subjective Date/time seen: 11/17/23 14:45 Interval history: Patient underwent stress test which shows normal myocardial perfusion at rest and during stress with left ventricular ejection fraction 63. Pending on nuclear scan reading. Patient currently denies any chest pain shortness of breath or diaphoresis. Exam Const: General: comfortable, no acute distress, well developed, alert, awake and average body habitus Nutritional Appearance: average body habitus Orientation/consciousness: patient oriented x3 HENMT: Head: normal to inspection, normocephalic and atraumatic Ears: hearing grossly normal bilaterally Face/Nose/Sinus: normal facial exam Face and sinus: normal facial exam Eyes: General: appearance normal, both eyes and all related structures Pupils: Equal, round and reactive pupils present EOM: EOMs intact bilaterally Neck: Neck: full ROM, no lymphadenopathy and no JVD Thyroid: thyroid normal Lymphatic: no lymphadenopathy noted Resp: Effort & Inspection: normal respiratory effort and able to speak in complete sentences Auscultation: clear to auscultation bilaterally Cardio: Jugular venous distension: no JVD Rate: regular rate Rhythm: regular rhythm Heart sounds: S1 normal heart sound present and S2 normal heart sound present : General: Yes deferred Skin: Rashes: no rashes Wounds: no wounds Neuro: General: patient oriented x3 and CN's II-XI intact bilaterally Cranial nerves: Yes CN's II-XII intact bilaterally and Yes Equal, round and reactive pupils present Cognition (Neuro): normal cognition Speech: normal speech Gait exam (Neuro): Normal gait present Motor exam (neuro): 5/5 motor strength present throughout Extrem: General: normal to inspection, full ROM, no joint enlargement and no pedal edema Objective Data Vital Signs Vital Signs: Vital Signs - 24 hr 11/16/23 17:26 11/16/23 19:43 11/16/23 19:43 Temperature 97.3 F L 97.9 F Pulse Rate 85 Respiratory Rate 16 Blood Pressure 117/74 125/81 Pulse Oximetry 100 Oxygen Delivery Room Air 11/16/23 20:22 11/16/23 21:57 11/16/23 22:30 Temperature 98.2 F 98.1 F Pulse Rate 71 76 90 Respiratory Rate 15 18 Blood Pressure 125/81 155/76 H Pulse Oximetry 100 100 Oxygen Delivery 11/16/23 22:30 11/16/23 22:30 11/17/23 00:00 Temperature 98 F Pulse Rate 72 73 Respiratory Rate 20 Blood Pressure 137/70 Pulse Oximetry 100 Oxygen Delivery Room Air 11/17/23 00:00 11/17/23 00:46 11/17/23 02:00 Temperature 97.8 F Pulse Rate 65 71 Respiratory Rate 20 Blood Pressure 140/59 L Pulse Oximetry 100 Oxygen Delivery Room Air 11/17/23 04:00 11/17/23 04:00 11/17/23 06:16 Temperature 97.6 F Pulse Rate 68 84 Respiratory Rate 20 Blood Pressure 132/71 Pulse Oximetry 98 Oxygen Delivery Room Air 11/17/23 08:00 11/17/23 09:51 11/17/23 10:00 Temperature 97.2 F L Pulse Rate 77 66 74 Respiratory Rate 20 Blood Pressure 137/79 Pulse Oximetry 100 Oxygen Delivery 11/17/23 11:43 11/17/23 12:00 Temperature 97.3 F L Pulse Rate 70 75 Respiratory Rate 18 Blood Pressure 149/69 H Pulse Oximetry 100 Oxygen Delivery Intake/Output Intake/Output: Intake & Output 11/14/23 11/15/23 11/16/23 11/17/23 23:59 23:59 23:59 23:59 Intake Total 500 790 Output Total 700 Balance 500 90 Meds/Results Medications: Active Medications Generic Name Dose Route Start Last Admin Trade Name Freq PRN Reason Stop Dose Admin Acetaminophen 1,000 mg 11/17/23 01:36 Acetaminophen 500 Mg Tablet PO Q6H PRN Mild Pain (1-3) or F
--- NOTE | 2023-11-17 15:14 | PM.DS ---
DS: Admitting Diagnosis Discharge Date 11/17/2023 Admitting Diagnosis Chest pain DS: Summary Hospital Course Hospital Course: 62-year-old female with no significant past medical history. Patient presents to the emergency room with complaints of retrosternal chest pain, has had cold-like symptoms has been taking Advil and Tylenol at home. Denies any nausea vomiting or abdominal epigastric pain, no fevers no rigors no chills. In emergency room preliminary workup has been essentially nonrevealing. Serial troponin was negative. Cardiology was consulted.Stress test shows normal myocardial perfusion at rest and during stress with left ventricular ejection fraction 63. Pending on nuclear scan reading. Cardiology agrees to discharging the patient with follow-up with them in a week. Status at Discharge Cognitive/behavioral status at discharge: Stable Time Spent with Patient Time attestation: Total time spent providing and/or coordinating discharge services: 45 minute Exam Const: General: comfortable, no acute distress, well developed, alert, awake and average body habitus Nutritional Appearance: average body habitus Orientation/consciousness: patient oriented x3 HENMT: Head: normal to inspection, normocephalic and atraumatic Ears: hearing grossly normal bilaterally Face/Nose/Sinus: normal facial exam Face and sinus: normal facial exam Eyes: General: appearance normal, both eyes and all related structures Pupils: Equal, round and reactive pupils present EOM: EOMs intact bilaterally Neck: Neck: full ROM, no lymphadenopathy and no JVD Thyroid: thyroid normal Lymphatic: no lymphadenopathy noted Resp: Effort & Inspection: normal respiratory effort and able to speak in complete sentences Auscultation: clear to auscultation bilaterally Cardio: Jugular venous distension: no JVD Rate: regular rate Rhythm: regular rhythm Heart sounds: S1 normal heart sound present and S2 normal heart sound present : General: Yes deferred Skin: Rashes: no rashes Wounds: no wounds Neuro: General: patient oriented x3 and CN's II-XI intact bilaterally Cranial nerves: Yes CN's II-XII intact bilaterally and Yes Equal, round and reactive pupils present Cognition (Neuro): normal cognition Speech: normal speech Gait exam (Neuro): Normal gait present Motor exam (neuro): 5/5 motor strength present throughout Extrem: General: normal to inspection, full ROM, no joint enlargement and no pedal edema DS: Data Data Completed and Pending Labs on day of discharge: Labs from last 24 hours 11/17/23 11/16/23 11/16/23 03:13 20:34 14:47 Troponin I 0.016 D 0.012 < 0.012 Influenza A (RT-PCR) Negative Influenza B (RT-PCR) Negative RSV (RT-PCR) Negative SARS-CoV-2 RNA (RT-PCR) Negative Group A Strep (PCR) Not detected Imaging Radiologist's impression: ITS Impressions Chest X-Ray 11/16/23 15:08 IMPRESSION: 1. Stable mild scarring at right lung apex. Chest/Abdomen/Pelvis CTA 11/16/23 20:15 IMPRESSION: Mild esophagitis/gastritis. Otherwise unremarkable CT chest, abdomen, and pelvis findings. Lexiscan Stress Test 11/17/23 09:28 IMPRESSION: 1. Normal myocardial perfusion at rest and during stress. 2. Left ventricular ejection fraction measuring 63%. Discharge Plan Discharge Attending physician on discharge: Gregg Patel Consulting providers: Brenden Patterson Discharging Clinician: Gregg Patel Patient Disposition: Home, Self-Care Activity: as tolerated Diet: heart healthy Discharge Instructions: Chest Pain Patient Instructions: Antibiotic Form, Chest Pain (GEN) Stand Alone Forms: General Discharge Information Follow-up/Referrals: Tete,OLRY Fan [Primary Care Provider] - 1 Week Brenden Patterson DO [Physician] - 1 Week Discharge Medications: No Action No Home Medications Date of admission: 11/16/23 21:18 Primary Care Provider: Tete
== END 2023-11-17 15:40 | disposition home or self-care (01) ==
LOC: ANHED 21:40 → ANHIMU 22:29
PROVIDERS: Physician Assistant; Admitting Provider Internal Medicine; Emergency Provider Student in an Organized Health Care Education/Training Program; PCP Physician Assistant; Visit Provider General Practice
DX: R07.9 Chest pain, unspecified (principal); Z20.822 Contact with and (suspected) exposure to COVID-19
CPT/HCPCS: 36415; 71046; 71275; 74174; 78452; 80048; 84484; 85025; 87637; 87651; 93005; 93017; 96360; 96361; 99285; A9270; A9502; G0378; J2785; J7120; Q9967

== ENCOUNTER 2024-05-04 10:45 | Outpatient (RCR) | payer OTHER, SELFPAY ==
[2024-03-17 11:16] VITALS: BP_SYST 115
--- NOTE | 2024-03-17 12:01 | PCPTNOTE ---
pt was 15 minutes late for eval appt.
--- NOTE | 2024-03-17 12:59 | OPREHPOC ---
Outpatient Therapy Plan of Care This is a Multidisciplinary Plan of Care that may contain components documented by all disciplines (PT, OT, and ST.) PT Problem 1 PT Problem #1 Knowledge Deficit PT Goal 1 Goal / Goal Update *indep with HEP Target Visit 8 PT Problem 2 PT Problem #2 Pain PT Goal 1 Goal / Goal Update * pt report pain rating at worst of 6/10 Target Visit 8 PT Goal 2 Goal / Goal Update * self assessment Quick DASH rating of 46% limitation in activity level Target Visit 8 PT Problem 3 PT Problem #3 Impaired Flexibility PT Goal 1 Goal / Goal Update increase R shoulder ROM, to improve overhead reach and activity with home and self care tasks: active in standing: flexion 140' and IR- reach behind back, palm to waist Target Visit 8 PT Problem 4 PT Problem #4 Impaired Strength PT Goal 1 Goal / Goal Update increase strength of R shoulder for use of dominant UE: in standing 5 reps: flexion to 120' and abduction to 90' Target Visit 8
--- NOTE | 2024-03-17 12:59 | PTOPEVAL1 ---
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 Onset of pain was gradual and now constantly hurting. At work is on lifting restrictions from provider for 10#. Self assessment Quick DASH rating of 68% limitation in activity level. Decreased activity and use of R arm is limited due to pain. With the evaluation: she has decreased ROM and strength of R shoulder- all motions, with flexion and IR motions most pain; tenderness over anterior GH joint. Skilled PT services are indicated for modalities to decrease pain; therapeutic exercises to increase ROM and strength of R shoulder with education for HEP. Plan of Care Interventions Electrical Stimulation,Hot Pack/Cold Pack,Neuro Re -education,Patient/Caregiver Education,Therapeutic Activities,Therapeutic Exercise,Ultrasound,Other Other Interventions taping PT Services Indicated Yes Treatment Frequency and 2x/wk for 8 visits Duration These treatments will address the objective and functional deficits as defined above. The patient will be advanced safely and appropriately in order for the patient to progress towards his/her prior level of function. Additional exercises will be introduced and as well as a comprehensive home exercise program upon discharge, if needed, ?to ensure carryover of functional gains achieved in the clinic. This treatment plan has been reviewed and agreement upon by the patient.
--- NOTE | 2024-04-05 09:38 | PCPTNOTE ---
Pt arrived 40 min late to treatment and was rescheduled. AKS
--- NOTE | 2024-04-12 10:54 | OPREHPOC ---
Outpatient Therapy Plan of Care This is a Multidisciplinary Plan of Care that may contain components documented by all disciplines (PT, OT, and ST.) PT Problem 1 PT Problem #1 Knowledge Deficit PT Goal 1 Goal / Goal Update *indep with HEP 04-12-24 progress goal met continue towards goal Target Visit 16 PT Problem 2 PT Problem #2 Pain PT Goal 1 Goal / Goal Update * pt report pain rating at worst of 6/10 04-12-24 progress goal not met, 10/10 at worst continue towards goal Target Visit 16 PT Goal 2 Goal / Goal Update * self assessment Quick DASH rating of 46% limitation in activity level 04-12-24 progress goal met with 39% NEW goal: rating of 22% limitation Target Visit 16 PT Problem 3 PT Problem #3 Impaired Flexibility PT Goal 1 Goal / Goal Update increase R shoulder ROM, to improve overhead reach and activity with home and self care tasks: active in standing: flexion 140' and IR- reach behind back, palm to waist 04-12-24 progress goal for flexion met; continue towards IR goal Target Visit 16 PT Problem 4 PT Problem #4 Impaired Strength PT Goal 1 Goal / Goal Update increase strength of R shoulder for use of dominant UE: in standing 5 reps: flexion to 120' and abduction to 90' 04-12-24 progress goal met NEW GOALS: in standing, 5 reps with hand weight 1* flexion to 90' with 4# 2* abduction to 90' with 4# 3* maximum bilateral UE box lift from floor/waist height 30# x 3 reps Target Visit 16
--- NOTE | 2024-04-12 10:56 | PCPTNOTE ---
pt was 25 minutes late for today's reeval appt. Shortened session due to tardiness. Reinforced appointment schedule with pt and importance of being on time for full treatment session. She reported she did not have the phone number to call, so just drove here. Issued her a card with the phone #.
--- NOTE | 2024-04-12 10:58 | PTOPPROG ---
Assessment and note entered by Tricia Estrada, PT progress Assessment Status Progress ICD-10 Condition Codes (PT) Pain in right shoulder M25.512 Onset November 2023 Subjective Information therapy is stretching the shoulder and helping with the motion; doing the exercises at home; is still working with the 10# lifting rules from ; go back to dr next week; want to continue therapy to get shoulder better. Assessment PT Clinical Summary Raegan has received 8 PT sessions. Compared to the initial evaluation: pain from 6-10/10 to 0-10/10; self assessment with Quick DASH rating from 68% to 39% limitation in activity level; education for HEP and posture. R shoulder active ROM in standing: flexion 150', abduction 145', IR- reach behind back, palm to R buttock and ER- reach to back of head with her palm. Pain increase with IR motion. R shoulder strength: flexion to 90' with 2# hand wt; abduction to 90' with 2# hand wt; bilateral UE box max lift floor/waist height: 15# The goals were partially met. Continue PT treatment. Plan of Care Interventions Electrical Stimulation,Hot Pack/Cold Pack,Neuro Re -education,Patient/Caregiver Education,Therapeutic Activities,Therapeutic Exercise,Ultrasound,Other Other Interventions taping PT Services Indicated Yes Treatment Frequency and 2x/wk for 8 visits Duration These treatments will address the objective and functional deficits as defined above. The patient will be advanced safely and appropriately in order for the patient to progress towards his/her prior level of function. Additional exercises will be introduced and as well as a comprehensive home exercise program upon discharge, if needed, ?to ensure carryover of functional gains achieved in the clinic. This treatment plan has been reviewed and agreement upon by the patient.
--- NOTE | 2024-04-20 07:40 | PCPTNOTE ---
Called and canceled due to work scheduled.
--- NOTE | 2024-05-03 11:40 | PCPTNOTE ---
Pt no showed visit today.
--- NOTE | 2024-05-05 12:05 | PCPTNOTE ---
Pt no showed visit today.
--- NOTE | 2024-05-10 11:54 | PCPTNOTE ---
pt did not show for today's reeval appt
--- NOTE | 2024-05-27 08:24 | PCPTNOTE ---
pt did not show for today reeval appt.
--- NOTE | 2024-05-27 08:28 | PTOPDC ---
Assessment and note entered by Tricia Estrada, PT Assessment Status Discharge - Pt Not Present ICD-10 Condition Codes (PT) Pain in right shoulder M25.511 Onset November 2023 Subjective Information pt was not seen this date. Did not show for today's reevaluation appointment. Assessment PT Clinical Summary Raegan has received a total of 14 PT sessions, from Mar 17 to May 04. She has had 5 no- show and 1 canceled appointments. Discharge PT due to not attending appointments. The goals were not addressed. Plan of Care PT Services Indicated No
== END 2024-05-27 09:58 | disposition home or self-care (01) ==
LOC: ANHPT 10:45
PROVIDERS: PCP Physician Assistant; Visit Provider Physician Assistant
DX: M25.511 Pain in right shoulder (principal)
CPT/HCPCS: 97014; 97110; 97140; 97161; G0283

== ENCOUNTER 2024-08-18 23:49 | Emergency (ER) | payer OTHER, SELFPAY ==
--- OUTSIDE RECORDS SUMMARY | 2024-08-18 23:52 | XMS_ITS | Data Portability ---
Author Organization [facility] [place] [facility] Address [address] [address] Care Team Providers [employer] Professional Name Role Phone DEON DOMINGUEZ Primary Care Provider Assessment Encounter Date Assessment Date Assessment LastModified by Organization Details LastModified Time 12/08/2022 12/08/2022 mammogram 2022 colonoscopy Not available 12/08/2022 14:26:05 07/20/2023 07/20/[address] Urias Not available 07/20/2023 09:58:52 02/18/2024 02/18/[address] Urias 12/27/2023 [email or web address] Not available 02/18/2024 11:59:10 Plan of Treatment Reminders Order Date Submit Date Provider Last Modified By Organization Details Last Modified Time Details Appointments ANY 15 2024 03:00P ORLY KERR Not available Not available Not available Lab pap, IG + reflex HPV 2023 024 [facility], [address], [address], [place], [address], 02/25/2024 12:26:13 HbA1c (hemoglob in A1c), blood 2023 024 [place] [facility], [address], [address], [place], [address], 07/21/2023 09:14:49 CMP, serum or plasma 2023 024 [facility], [address], [place], [address], 07/21/2023 09:14:46 albumin/c reatinine , mass ratio, urine 2023 024 [facility], [address], [address], [place], [address], 07/21/2023 09:14:43 lipid panel, serum 2023 024 [facility], [address], [address], [place], [address], 07/21/2023 09:14:45 iron + total iron-bind ing capacity (TIBC), serum 2023 024 [facility], [address], [address], [place], [address], 07/21/2023 09:14:47 ferritin, serum or plasma 2023 024 [facility], [address] [facility] [address], [address], [place], [address], 07/21/2023 09:14:50 CBC w/ auto diff 2023 024 [facility], [facility] [address] [address], [place], [place], [address], 07/21/2023 09:14:51 Referral physical therapist referral - continue another 8 session of PT [address], [address], [place], [address], 05/06/2024 07:55:04 Procedures None recorded. Surgeries None recorded. Imaging US, duplex, venous, lower extremity - swelling and knots 2022 023 [facility] ([facility]) , [address], [place], [address], 12/20/2022 16:31:29 Medication Orders hydrochlo rothiazid e 12.5 mg tablet 2024 025 [facility] #[id number], [address], [place], [id number], 04/19/2024 09:12:30 hydrochlo rothiazid e 12.5 mg tablet 2023 024 [facility] #74025, [address], [place], [id number], 02/18/2024 12:05:46 hydrochlo rothiazid e 12.5 mg tablet 2023 024 [facility] #18277, [address], [place], [id number], 07/20/2023 10:03:20 hydrochlo rothiazid e 12.5 mg tablet 2022 023 [facility]87489, [address], [place], [id number], 02/04/2023 17:03:13 Patient TargetsNo targets recorded. Patient Instructions Encounter Date Encounter Id Patient Instructions Last Modified By Organization Details Last Modified Time 02/04/2023 [id number] (CLAUDINE) ankle brachial index* [place] Not available 06/02/2023 14:00:03 02/18/2024 [id number] A healthy lifestyle: care instructions Not available 02/18/2024 12:02:07 04/19/2024 [id number] A healthy lifestyle: care instructions [email or web address] Not available 04/28/2024 08:26:24 Reason for Referral Physical Therapist Referral for Bilateral shoulder joint pain continue another 8 session of PT Referring Physician: Deon Dominguez, Wool Carder, Encounter Date: 04/19/2024 Results Created Date Observation Date Name Description Value Unit Range Abnormal Flag Note LastModifiedBy Organization Detail LastModifiedTime 07/20/19 24 07/21/2023 ALBUM IN/CR EATIN INE RATIO ,URIN E creatinine, urine 285.5 mg/dL notest ab. Not Available [facility] ([facility]) [address] [place], [address], 07/21/2023 09:14:43 07/20/19 24 07/21/2023 ALBUM IN/CR EATIN INE RATIO ,URIN E albumin, urine 17.3 ug/mL notest ab. Not Available [facility] ([facility]) [address] [place], [address], 07/21/2023 09:14:43 07/20/19 24 07/21/2023 ALBUM IN/CR EATIN INE RATIO ,URIN E alb/creat ratio 6 mg/g_ creat 0-29 Landy l: 0 - 29 Moder ately incre ased: 30 - 300 Sever merry incre ased: >300 Not Available [facility] ([facility]) [address] [place], [address], 07/21/2023 09:14:43 07/20/19 24 07/21/2023 LIPID PANEL cholesterol, total 185 mg/dL 100-19 9 Not Available [facility] ([facility]) [address] [place], [address], 07/21/2023 09:14:45 07/20/19 24 07/21/2023 LIPID PANEL triglyceride s 56 mg/dL 0-149 Not Available [facility] ([facility]) [address] [place], [address], 07/21/2023 09:14:45 07/20/19 24 07/21/2023 LIPID PANEL HDL cholesterol 67 mg/dL >39 Not Available [facility] ([facility]) [address], [place], [address], 07/21/2023 09:14:45 07/20/19 24 07/21/2023 LIPID PANEL VLDL cholesterol lex 11 mg/dL 5-40 Not Available [facility] ([facility]) [address] [place], [address], 07/21/2023 09:14:45 07/20/19 24 07/21/2023 LIPID PANEL LDL chol calc ([facility]) 107 mg/dL 0-99 above high normal Not Available [facility] ([facility]) [address] [place], [address], 07/21/2023 09:14:45 07/20/19 24 07/21/2023 COMP. METAB OLIC PANEL (14) glucose 94 mg/dL 70-99 Not Available [facility] ([facility]) [address] [place], [address], 07/21/2023 09:14:46 07/20/19 24 07/21/2023 COMP. METAB OLIC PANEL (14) BUN 16 mg/dL 8-27 Not Available [facility] ([facility]) [address] [place], [address], 07/21/2023 09:14:46 07/20/19 24 07/21/2023 COMP. METAB OLIC PANEL (14) creatinine 0.88 mg/dL 0.57-1 .00 Not Available [facility] ([facility]) [address] [place], [address], 07/21/2023 09:14:46 07/20/19 24 07/21/2023 COMP. METAB OLIC PANEL (14) eGFR 75 mL/mi n/1.7 3 >59 Not Available [facility] ([facility]) [address] [place], [address], 07/21/2023 09:14:46 05/13/20 24 07/21/2023 COMP. METAB OLIC PANEL (14) BUN/creatini ne ratio 18 12-28 Not Available [facility] ([facility]) [address] [place], [address], 07/21/2023 09:14:46 07/20/19 24 07/21/2023 COMP. METAB OLIC PANEL (14) sodium 140 mmol/ L 134-14 4 Not Available [facility] ([facility]) [address] [place], [address], 07/21/2023 09:14:46 07/20/19 24 07/21/2023 COMP. METAB OLIC PANEL (14) potassium 4.5 mmol/ L 3.5-5. 2 Not Available [facility] ([facility]) [address] [place], [address], 07/21/2023 09:14:46 07/20/19 24 07/21/2023 COMP. METAB OLIC PANEL (14) chloride 103 mmol/ L 96-106 Not Available [facility] ([facility]) [address] [place], [address], 07/21/2023 09:14:46 07/20/19 24 07/21/2023 COMP. METAB OLIC PANEL (14) carbon dioxide, total 25 mmol/ L 20-29 Not Available [facility] ([facility]) [address] [place], [address], 07/21/2023 09:14:46 07/20/19 24 07/21/2023 COMP. METAB OLIC PANEL (14) calcium 8.8 mg/dL 8.7-10 .3 Not Available [facility] ([facility]) [address] [place], [address], 07/21/2023 09:14:46 07/20/19 24 07/21/2023 COMP. METAB OLIC PANEL (14) protein, total 6.7 g/dL 6.0-8. 5 Not Available [facility] ([facility]) [address], [place], [address], 07/21/2023 09:14:46 07/20/19 24 07/21/2023 COMP. METAB OLIC PANEL (14) albumin 4.4 g/dL 3.9-4. 9 Not Available [facility] ([facility]) [address], [place], [address], 07/21/2023 09:14:46 07/20/19 24 07/21/2023 COMP. METAB OLIC PANEL (14) globulin, total 2.3 g/dL 1.5-4. 5 Not Available [facility] ([facility]) [address], [place], [address], 07/21/2023 09:14:46 07/20/19 24 07/21/2023 COMP. METAB OLIC PANEL (14) A/G ratio 1.9 1.2-2. 2 Not Available [facility] ([facility]) [address], [place], [address], 07/21/2023 09:14:46 07/20/19 24 07/21/2023 COMP. METAB OLIC PANEL (14) bilirubin, total 0.4 mg/dL 0.0-1. 2 Not Available [facility] ([facility]) [address], [place], [address], 07/21/2023 09:14:46 07/20/19 24 07/21/2023 COMP. METAB OLIC PANEL (14) alkaline phosphatase 66 IU/L 44-121 Not Available [facility] ([facility]) [address], [place], [address], 07/21/2023 09:14:46 07/20/19 24 07/21/2023 COMP. METAB OLIC PANEL (14) AST (SGOT) 15 IU/L 0-40 Not Available [facility] ([facility]) [address] [place], [address], 07/21/2023 09:14:46 07/20/19 24 07/21/2023 COMP. METAB OLIC PANEL (14) ALT (SGPT) 15 IU/L 0-32 Not Available [facility] ([facility]) [address] [place], [address], 07/21/2023 09:14:46 07/20/19 24 07/21/2023 IRON AND TIBC iron bind.cap.(TI BC) 316 ug/dL 250-45 0 Not Available [facility] ([facility]) [address] [place], [address], 07/21/2023 09:14:47 07/20/19 24 07/21/2023 IRON AND TIBC UIBC 239 ug/dL 118-36 9 Not Available [facility] ([facility]) [address] [place], [address], 07/21/2023 09:14:47 07/20/19 24 07/21/2023 IRON AND TIBC iron 77 ug/dL 27-139 Not Available [facility] ([facility]) [address], [place], [address], 07/21/2023 09:14:47 07/20/19 24 07/21/2023 IRON AND TIBC iron saturation 24 % 15-55 Not Available [facility] ([facility]) [address] [place], [address], 07/21/2023 09:14:47 07/20/19 24 07/21/2023 HEMOG LOBIN A1C hemoglobin A1C 6.1 % 4.8-5. 6 above high normal Predi abete s: 5.7 - 6.4 Diabe chandni: >6.4 Glyce juan carlos contr ol for adult s with diabe chandni: <7.0 Not Available [facility] ([facility]) [address] [place], [address], 07/21/2023 09:14:49 07/20/19 24 07/21/2023 AKIRA TIN ferritin 75 NG/mL 15-150 Not Available [facility] ([facility]) [address] [place], [address], 07/21/2023 09:14:50 07/20/19 24 07/21/2023 CBC WITH DIFFE RENTI AL/PL ATELE T WBC 4.1 x10e3 /uL 3.4-10 .8 Not Available [facility] ([facility]) [address] [place], [address], 07/21/2023 09:14:51 07/20/19 24 07/21/2023 CBC WITH DIFFE RENTI AL/PL ATELE T RBC 4.42 x10e6 /uL 3.77-5 .28 Not Available [facility] ([facility]) [address], [place], [address], 07/21/2023 09:14:51 07/20/1907/21/2023 CBC WITH DIFFE RENTI AL/PL ATELE T hemoglobin 11.2 g/dL 11.1-1 5.9 Not Available [facility] ([facility]) [address] [place], [address], 07/21/2023 09:14:51 07/20/1907/21/2023 CBC WITH DIFFE RENTI AL/PL ATELE T hematocrit 34.5 % 34.0-4 6.6 Not Available [facility] ([facility]) [address] [place], [address], 07/21/2023 09:14:51 07/20/1907/21/2023 CBC WITH DIFFE RENTI AL/PL ATELE T MCV 78 fL 79-97 below low normal Not Available [facility] ([facility]) [address] [place], [address], 07/21/2023 09:14:51 07/20/19 24 07/21/2023 CBC WITH DIFFE RENTI AL/PL ATELE T MCH 25.3 pg 26.6-3 3.0 below low normal Not Available [facility] ([facility]) [address], [place], [address], 07/21/2023 09:14:51 07/20/19 24 07/21/2023 CBC WITH DIFFE RENTI AL/PL ATELE T MCHC 32.5 g/dL 31.5-3 5.7 Not Available [facility] ([facility]) [address], [place], [address], 07/21/2023 09:14:51 07/20/19 24 07/21/2023 CBC WITH DIFFE RENTI AL/PL ATELE T RDW 13.7 % 11.7-1 5.4 Not Available [facility] ([facility]) [address], [place], [address], 07/21/2023 09:14:51 07/20/19 24 07/21/2023 CBC WITH DIFFE RENTI AL/PL ATELE T platelets 202 x10e3 /uL 150-45 0 Not Available [facility] ([facility]) [address], [place], [address], 07/21/2023 09:14:51 07/20/19 24 07/21/2023 CBC WITH DIFFE RENTI AL/PL ATELE T neutrophils 43 % notest ab. Not Available [facility] ([facility]) [address], [place], [address], 07/21/2023 09:14:51 07/20/19 24 07/21/2023 CBC WITH DIFFE RENTI AL/PL ATELE T lymphs 42 % notest ab. Not Available [facility] ([facility]) [address], [place], [address], 07/21/2023 09:14:51 07/20/19 24 07/21/2023 CBC WITH DIFFE RENTI AL/PL ATELE T monocytes 11 % notest ab. Not Available [facility] ([facility]) [address], [place], [address], 07/21/2023 09:14:51 07/20/19 24 07/21/2023 CBC WITH DIFFE RENTI AL/PL ATELE T eos 3 % notest ab. Not Available [facility] ([facility]) [address], [place], [address], 07/21/2023 09:14:51 07/20/19 24 07/21/2023 CBC WITH DIFFE RENTI AL/PL ATELE T basos 1 % notest ab. Not Available [facility] ([facility]) [address], [place], [address], 07/21/2023 09:14:51 07/20/19 24 07/21/2023 CBC WITH DIFFE RENTI AL/PL ATELE T neutrophils (absolute) 1.8 x10e3 /uL 1.4-7. 0 Not Available [facility] ([facility]) [address], [place], [address], 07/21/2023 09:14:51 07/20/19 24 07/21/2023 CBC WITH DIFFE RENTI AL/PL ATELE T lymphs (absolute) 1.7 x10e3 /uL 0.7-3. 1 Not Available [facility] ([facility]) [address], [place], [address], 07/21/2023 09:14:51 07/20/19 24 07/21/2023 CBC WITH DIFFE RENTI AL/PL ATELE T monocytes(ab solute) 0.4 x10e3 /uL 0.1-0. 9 Not Available [facility] ([facility]) [address], [place], [address], 07/21/2023 09:14:51 07/20/19 24 07/21/2023 CBC WITH DIFFE RENTI AL/PL ATELE T eos (absolute) 0.1 x10e3 /uL 0.0-0. 4 Not Available [facility] ([facility]) [address], [place], [address], 07/21/2023 09:14:51 07/20/19 24 07/21/2023 CBC WITH DIFFE RENTI AL/PL ATELE T baso (absolute) 0.0 x10e3 /uL 0.0-0. 2 Not Available [facility] ([facility]) [address], [place], [address], 07/21/2023 09:14:51 07/20/19 24 07/21/2023 CBC WITH DIFFE RENTI AL/PL ATELE T immature granulocytes 0 % notest ab. Not Available [facility] ([facility]) [address], [place], [address], 07/21/2023 09:14:51 07/20/19 24 07/21/2023 CBC WITH DIFFE RENTI AL/PL ATELE T immature grans (abs) 0.0 x10e3 /uL 0.0-0. 1 Not Available [facility] ([facility]) [address], [place], [address], 07/21/2023 09:14:51 02/18/20 24 02/18/2024 IGP,A PTIMA HPV,A GE GDLN age gdln acog testing 30-65 Not Available [facility] ([facility]) [address] [place], [address], 02/25/2024 12:26:10 02/18/20 24 02/20/2024 IGP, APTIM A HPV, RFX 16/18 ,45 HPV aptima Negati ve negati ve This nucle ic acid ampli ficat ion test detec ts fourt een high- risk HPV types (16,1 8,31, 33,35 ,39,4 5,51, 52,56 ,58,5 9,66, 68) witho ut diffe renti ation . Not Available [facility] ([facility]) [address], [place], [address], 02/25/2024 12:26:12 02/18/20 24 02/25/2024 IGP, APTIM A HPV, RFX 16/18 ,45 diagnosis: Lorena JOSHUA FOR INTRA EPITH ELIAL LESIO N OR MALFLORESITA BRITNI . CELLU LAR GOLDEN ES ASSOC IATED WITH ATROP HY AND INFLA MMATI ON ARE PRESE NT. Not Available [facility] ([facility]) [address], [place], [address], 02/25/2024 12:26:12 02/18/20 24 02/25/2024 IGP, APTIM A HPV, RFX 16/18 ,45 specimen adequacy: Lorena hines Satis facto ry for evalu ation . Endoc ervic al compo nent may not be disti nguis hed in cases of atrop hy. Parti ally obscu ring thick areas are prese nt. Scant cellu larit y Not Available [facility] ([facility]) [address], [place], [address], 02/25/2024 12:26:12 02/18/20 24 02/25/2024 IGP, APTIM A HPV, RFX 16/18 ,45 clinician provided ICD10: Lorena hines Z01.4 19 Not Available [facility] ([facility]) [address], [place], [address], 02/25/2024 12:26:12 02/18/20 24 02/25/2024 IGP, APTIM A HPV, RFX 16/18 ,45 performed by: Lorena haley Cytoflora hines (ASCP ) Not Available [facility] ([facility]) [address], [place], [address], 02/25/2024 12:26:12 02/18/20 24 02/25/2024 IGP, APTIM A HPV, RFX 16/18 ,45 QC reviewed by: Jayden Rubalcava visor y Cytot echsoledad hines (ASCP ) Not Available [facility] ([facility]) [address] [place], [address], 02/25/2024 12:26:12 02/18/20 24 02/25/2024 IGP, APTIM A HPV, RFX 16/18 ,45 . . Not Available [facility] ([facility]) [address] [place], [address], 02/25/2024 12:26:12 02/18/20 24 02/25/2024 IGP, APTIM A HPV, RFX 16/18 ,45 note: Lorena hines The Pap smear is a scree zeina test desig julia to aid in the detec tion of david ligna nt and malig nant condi tions of the uteri ne cervi x. It is not a diagn ostic proce dure and shoul d not be used as the sole means of detec ting cervi lex cance r. Both false -posi tive and false -nega tive repor ts do occur . Not Available [facility] ([facility]) [address] [place], [address], 02/25/2024 12:26:12 02/18/20 24 02/25/2024 IGP, APTIM A HPV, RFX 16/18 ,45 test methodology: Lorena hines This liqui d based ThinP rep(R ) pap test was scree julia with the use of an image guide pal holbrook Not Available [facility] ([facility]) [address] [place], [address], 02/25/2024 12:26:12 02/18/20 24 02/25/2024 IGP, APTIM A HPV, RFX 16/18 ,45 HPV genotype reflex Commen t Crite mitzy not met, HPV Genot ype not perfo rmed. Not Available [facility] ([facility]) [address], [place], [address], 02/25/2024 12:26:12 12/21/19 23 12/20/2022 US, duple x, venou s, lower extre mity No observ ation record ed. [address] [facility], [place], [address], 01/27/2023 11:02:50 01/21/20 23 01/20/2023 US, duple x, venou s, lower extre mity No observ ation record ed. [address] [address], [place], [address], 01/21/2023 15:24:27 05/28/19 24 05/28/2023 MAMMO , scree zeina, bilat eral No observ ation record ed. [email or web address] [address], [place], [address], 06/01/2023 08:42:11 05/29/19 24 05/28/2023 MAMMO , scree zeina, bilat eral No observ ation record ed. [email or web address] [address], [place], [address], 06/01/2023 15:27:20 06/02/19 24 06/02/2023 (CLAUDINE) ankle brach ial index * No observ ation record ed. [address] [address], [place], [address], 07/22/2023 16:24:21 06/03/19 24 06/02/2023 (CLAUDINE) ankle brach ial index * No observ ation record ed. [address] [address], [place], [address], 07/22/2023 16:24:28 11/03/19 24 11/03/2023 XR, shoul brenda No observ ation record ed. [address] [address], [place], [address], 11/04/2023 09:45:32 11/16/19 24 11/16/2023 XR, chest , 2 view No observ ation record ed. [address] [address], [place], [address], 11/17/2023 13:24:51 11/16/19 24 11/16/2023 CT, angio gram, chest , w/wo contr ast No observ ation record ed. [address] [address], [place], [address], 11/17/2023 13:26:48 11/17/19 24 11/17/2023 cardi ac stres s test No observ ation record ed. [address] [address], [place], [address], 11/17/2023 13:27:50 11/17/19 24 11/17/2023 cardi ac stres s test No observ ation record ed. [address] [address], [place], [address], 11/17/2023 13:27:25 01/11/20 24 01/11/2024 XR, shoul brenda, 2 or more view No observ ation record ed. [address] [address], [place], [address], 01/13/2024 14:30:52 Result Notes None recorded. Problems Name Problem SNOMED Code Status Onset Date Resolution Date Notes Provider Name and Address Organization Details Recorded Time Herpesvirus infection 04265567 Active 2018 [place] - [facility] 9 14:24:03 Irritable bowel syndrome 38277577 Active 2019 [place] 0 12:17:36 Prediabetes 848728169 Active 2022 ORLY BAUTISTA Attn: Accountin g,[address] [facility], [place], [address], [place] [facility] 3 13:29:22 Iron deficiency anemia 67956746 Active 2022 ORLY BAUTISTA Attn: Accountin g,[address] [facility], [place], [address], [place] [facility] 3 13:29:23 Spinal stenosis of lumbar region 94336566 Active 2022 ORLY BAUTISTA Attn: Accountin g,[address] [facility], [place], [address], [place] [facility] 3 13:29:25 Varicose veins of lower extremity 95485223 Active 2022 ORLY BAUTISTA Attn: Accountin g,[address] [facility], [place], [address], [place] [facility] 3 14:23:58 Edema of lower extremity 214951134 Active 2022 ORLY BAUTISTA Attn: Accountin g,[address] [facility], [place], [address], [place] [facility] 3 14:24:02 Changes in skin texture 047479618 Active 2022 ORLY BAUTISTA Attn: Accountin g,[address] [facility], [place], [address], [place] [facility] 3 17:03:45 Essential hypertensio n 19411117 Active 2022 ORLY BAUTISTA Attn: Accountin g,[address] [facility], [place], [address], [place] [facility] 3 17:04:22 Intermitten t claudicatio n 32115963 Active 2022 ORLY BAUTISTA Attn: Accountin g,[address] [facility], [place], [address], [place] [facility] 3 17:04:35 Peripheral vascular disease 704028518 Active 2023 ORLY BAUTISTA Attn: Som pimentel,[address] [facility], [place], [address], [facility] - [facility] 4 16:19:07 Anemia 237704612 Active 2023 ORLY BAUTISTA Attn: Som pimentel,[address] [facility], [place], [address], [facility] - [facility] 4 10:12:30 Bilateral shoulder joint pain [id number] 9104 Active 2024 ORLY BAUTISTA Attn: Som pimentel,[address] [facility], [place], [address], [facility] - [facility] 5 08:30:18 Problem Notes None recorded. Procedures Surgical History Date Name Laterality Status Provider Name and Address Organization Details Recorded Time 0 Date of Last Mammogram completed Annabelle Kwon MA [facility] 11/29/2021 11:22:55 9 Date of Last Pap Smear completed Annabelle Kwon MA [facility] 02/18/2024 11:30:21 Imaging Results None recorded. Procedure Notes None recorded. Medical Equipment None Reported. Allergies No known drug allergies Medications Name Sig Start Date Stop Date Status Note LastModified by Organization Details LastModified Time cyclobenzap rine 10 mg tablet active Not Available Not Available Not Available fluconazole 150 mg tablet Take 1 tablet every day by oral route for 1 day. 05/24 completed Not Available Not Available Not Available Tubersol 5 tub. unit/0.1 mL intradermal injection solution Administe r .1ml interderm ally 2020 active Not Available Not Available Not Avai lable naproxen 250 mg tablet TAKE 1 TABLET BY MOUTH TWICE DAILY NEEDED FOR PAIN active Not Available Not Available No t Available metronidazo le 500 mg tablet Take 1 tablet every 12 hours by oral route for 7 days. 07/24 completed Not Available Not Available Not Available acyclovir 400 mg tablet Take 1 tablet twice a day by oral route. 07/24 completed Not Available Not Available Not Available valacyclovi r 500 mg tablet TAKE 1 TABLET BY MOUTH EVERY DAY 01/22 completed Not Available Not Available Not Available sulfamethox azole 800 mg-trimetho prim 160 mg tablet Take 1 tablet every 12 hours by oral route for 3 days. 08/21 completed Not Available Not Available Not Available acetaminoph en 500 mg tablet TAKE 1 TABLET BY MOUTH EVERY 6 HOURS NEEDED FOR PAIN active Not Available Not Available No t Available amoxicillin 875 mg tablet 07/11 completed Not Available Not Available Not Available hydrocodone 7.5 mg-acetamin ophen 325 mg tablet TAKE 1 TABLET BY MOUTH EVERY 4-6 HOURS NEEDED FOR PAIN 07/11 completed Not Available Not Available Not Available oseltamivir 75 mg capsule 07/22 completed Not Available Not Available Not Available ferrous sulfate 325 mg (65 mg iron) tablet Take 2 tablets every day by oral route for 30 days. 05/24 completed Not Available Not Available Not Available ibuprofen 400 mg tablet TAKE 1 TABLET BY MOUTH THREE TIMES DAILY NEEDED FOR PAIN active Not Available Not Available No t Available bisacodyl 5 mg tablet,avelino yed release AT 2 PM THE DAY BEFORE THE COLONOSCO PY TAKE 4 TABLETS BY MOUTH WITH 8 OZ OF WATER 07/19 completed Not Available Not Available Not Available polyethylen e glycol 3350 17 gram/dose oral powder MIX ENTIRE CONTENTS OF BOTTLE WITH 64 OZ YELLOW OR GREEN GATORADE AND DRINK AT 5 PM THE NIGHT BEFORE COLONOSCO PY 07/19 completed Not Available Not Available Not Available nitrofurant oin monohydrate /macrocryst als 100 mg capsule Take 1 capsule every 12 hours by oral route for 5 days. 05/24 completed Not Available Not Available Not Available hydrochloro thiazide 12.5 mg tablet Take 1 tablet every day by oral route for 90 days. 2024 active Not Available Not Available Not Avai lable cyclobenzap rine ER 15 mg capsule,ext ended release 24 hr TAKE 1 CAPSULE BY MOUTH ONCE DAILY active Not Available Not Available No t Available sodium,pota ssium,mag sulfates 17.5 gram-3.13 gram-1.6 gram oral soln MIX AND DRINK DIRECTED active Not Available Not Available No t Available ID NOW COVID-19 Test Kit TEST DIRECTED TODAY active Not Available Not Available No t Available BinaxNOW COVID-19 Ag Self Test kit active Not Available Not Available Not Available Vitals Date Recorded Systolic blood pressure Diastolic blood pressure Provider Name and Address Organization Details Last Updated DateTime 04/19/2024 170 mm[Hg] 79 mm[Hg] ORLY BAUTISTA Attn: Accounting,[address] [facility], [place], [address], [facility] 04/28/2024 08:27:57 Date Recorded Body height Body mass index (BMI) Body weight Provider Name and Address Organization Details Last Updated DateTime 04/19/2024 180.34 cm 27.5 kg/m2 30985.7 g Annabelle Kwon MA [facility] 04/19/2024 09:03:32 Date Recorded Body height Body mass index (BMI) Body weight Heart rate Oxygen saturation Oxygen saturation in Arterial blood by Pulse oximetry Systolic blood pressure Diastolic blood pressure Provider Name and Address Organization Details Last Updated DateTime 4 180.34 cm 27.9 kg/m2 15549.4 7 g 86 /min 98 % 98 % 150 mm[Hg] 78 mm[Hg] Annabelle Kwon MA [facility] 4 09:49:59 Date Recorded Body height Body mass index (BMI) Body weight Heart rate Oxygen saturation Oxygen saturation in Arterial blood by Pulse oximetry Systolic blood pressure Diastolic blood pressure Provider Name and Address Organization Details Last Updated DateTime 3 180.34 cm 27.2 kg/m2 20743.5 1 g 74 /min 99 % 99 % 122 mm[Hg] 70 mm[Hg] Annabelle Kwon MA [facility] 3 09:40:41 Date Recorded Body height Body mass index (BMI) Body weight Heart rate Oxygen saturation Oxygen saturation in Arterial blood by Pulse oximetry Systolic blood pressure Diastolic blood pressure Provider Name and Address Organization Details Last Updated DateTime 3 180.34 cm 26.9 kg/m2 56148.3 3 g 69 /min 99 % 99 % 142 mm[Hg] 60 mm[Hg] Annabelle Kwon MA [facility] 3 15:52:29 Date Recorded Body height Body mass index (BMI) Body weight Heart rate Oxygen saturation Oxygen saturation in Arterial blood by Pulse oximetry Systolic blood pressure Diastolic blood pressure Provider Name and Address Organization Details Last Updated DateTime 4 180.34 cm 26.5 kg/m2 77724.5 5 g 61 /min 98 % 98 % 165 mm[Hg] 78 mm[Hg] Annabelle Kwon MA [place] [facility] 4 11:29:56 Social History Question Answer Notes LastModified by Organizat ion Details LastModified Time Tobacco Smoking Status Never Smoker Flory Lopez MA null, [place] [facility] 12/22/2017 12:29:15 Do You Have An Advance Directive? No Information n ot available 01/22/2022 What Is Your Level Of Caffeine Consumption? Occasional Information not available 10/10/2019 In The 14 Days Before Symptom Onset, Have You Had Close Contact With A Laboratory-confirm ed COVID-19 While That Case Was Ill? No Information n ot available 11/29/2021 In The 14 Days Before Symptom Onset, Have You Had Close Contact With A Person Who Is Under Investigation For COVID-19 While That Person Was Ill? No Information not available 11/29/2021 Have You Been To An Area Known To Be High Risk For COVID-19? No Information not available 11/29/2021 Do You Have A Medical Power Of Dietitian Chief? No Information not available 01/22/2022 What Was The Date Of Your Most Recent Tobacco Screening? 02/18/2024 Information not available 02/18/2024 How Many Children Do You Have? 6 Information not available 10/10/2019 How Much Tobacco Do You Smoke? No Information not available 07/25/2019 General Stress Level Medium Information not available 10/10/2019 Has Tobacco Cessation Counseling Been Provided? Yes Information not available 05/24/2020 On What Date Was Tobacco Cessation Counseling Provided? 02/18/2024 Information not available 02/18/2024 How Many Years Have You Smoked Tobacco? 0 Information not available 07/25/2019 Sex: Female Functional Status Question Answer Note LastModified by Organizat ion Details LastModified Time What is your level of alcohol consumption? None Information not available 10/10/2019 Do you or have you ever used smokeless tobacco? Never used smokeless tobacco Information not available 07/25/2019 Are you able to care for yourself? Yes Information not available 10/10/2019 Do you or have you ever used e-cigarettes or vape? Never used electronic cigarettes Information not available 07/25/2019 What is your exercise level? Moderate Work is very physical . Information not available 10/10/2019 Mental Status None recorded. Family History Relationship Description Onset Age of this Age Resolved Age Notes LastModified by Organization Details LastModified Time Father No current problems or disability Not available 11/29 11:21:01 Mother No current problems or disability Not available 11/29 11:21:01 Mother Hypertensive disorder Not available 2023 11:39:10 Medical History Condition Response Coronary Artery Disease N Other N Atrial Fibrillation N High Blood Pressure N Depression N COPD N Blood Clots N Anxiety Disorder N Muscle, Joint, or Bone Problems N Acid Reflux (GERD) N Cancer N Stroke N High Cholesterol N Liver Disease N Headaches N Kidney or Bladder Problems N Thyroid Problems N GI Problems Y Skin Problems N Anemia N Heart Attack (MT) N Diabetes N Seizures/Epilepsy N Asthma N Allergies N Hepatitis N Heart Failure N Osteoporosis N Gynecological History Statement/Question Response Date of Last Pap Smear 10/08/2018 Date of Last Mammogram 03/09/2019 Date of LMP 12/21/2016 Obstetrics History GPAL:G 7 P 6 0 1 6 Type Value Multiple Births 0 Full Term 6 Induced 0 Spontaneous 1 Premature 0 Living 6 Ectopics 0 Total 7 Immunizations Vaccine Type Date Status Note Provider Nam e and Address Organization Details Recorded Time COVID-19, mRNA, LNP-S, PF, 30 mcg/0.3 mL dose 09/13/2020 completed Keisha Hogan RN null, [place] - [facility] 03/26/2021 16:00:51 COVID-19, mRNA, LNP-S, PF, 30 mcg/0.3 mL dose 10/24/2020 completed Keisha Hogan RN null, [place] [facility] 03/26/2021 16:01:08 Tdap 05/24/2020 completed Annabelle Kwon MA [facility], [facility] 05/24/2020 16:14:06 Past Encounters Encounter ID Performer Location Encounter Start Date Encounter Closed Date Diagnosis/Indication Diagnosis SNOMED-CT Code Diagnosis ICD10 Code Diagnosis Note [id number] ERINN Garrett NP [facility] [address] [place] [address] 12/22/2017 12:11:14 12/22/2017 15:16:30 Menopausal symptom 75413014 N95.1 -Obtain labs-Discu ssed pt may no longer be ovulating and may not need control-F/ u prn Herpes simplex 24506084 B00.9 -Renew acyclovir- Hx of herpes Hyperlipid emia screening 295273862 Z13.220 -Obtain lab [id number] ORLY BAUTISTA [facility] [address] [place] [address] 10/08/2018 13:42:11 10/08/2018 16:38:56 Gynecologic examination 04663301 Z01.419 Patient presents for pap. no history of abnormal paps. HX of herpes. Due for mammogram. - get mammogram- will call with results Herpes simplex 17899827 B00.9 patient says she was told she had herpes via blood exam. She has had cold blisters but never had an outbreak of gential herpes. She did have one boyfriend who had gential herpes in 2008. She is not currently sexually active. She has been told by some providers to take antiviral everyday and by others not to take it everyday. Blood tests do not prove that a person has genital herpes. Will recheck as we do not have labs here. She should make an appointmen t if she does develop outbreak so we can swab and confirm diagnosis. - Do not take antiviral every day At [facility] risk of sexually transmitted infection 290437794 Z20.2 patient would like to be screened. [id number] ORLY BAUTISTA [facility] [address] [place] [address] 10/15/2018 10:01:12 10/22/2018 16:29:10 Hyperlipidemia 70997955 E78.5 checking labs Weight gain 8375802 R63. 5 Patient has beeing gaining weight in last year. She thinks it may have to do with diet and lack of excercise. She used to walk and will start up again. - TSH - excercise 30 mins 5x week - balanced meals Pain of ri ght hip joint 5191573722 38000 M25.551 patient has had right hip pain and tightness that travels down the lateral side of leg to knee. On exam her IT band is tight. normal ROM. Patient would benefit from PT to improve pain and stretch out right side. - PT therapy. [id number] ORLY BAUTISTA [facility] [address] [place] [address] 07/25/2019 11:19:57 07/26/2019 15:12:38 Acute urinary tract infection 862778072 N39.0 patient presents with 1-2 weeks of R>L back pain. She states this is how her UTI present. denies fever, chills, nausea, radiating pain, hematuria, dysuria. - UA positive for leukocytes . will send culture and antibiotic s.- sending patient with bactrim, she denies any allergies to medication s.- stay hydrated- keep area dry [id number] ORLY BAUTISTA [facility] [address] [place] [address] 08/22/2019 09:39:41 08/23/2019 16:02:12 Hematochezia 497450063 K92.1 patient with history of intermitte nt hematochez ia, constipati on/straini ng and known hemorrhoid s presents with another episode. Last colonoscop y two years ago showed hemorrhoid s and some polyps ofbenign etiology. She does not know when her f/u is.. She denies pain, diarrhea, dark stools, fever, chills. - obtain colonoscop y results- increase fiber diet- stay hydrated- if continues to have straining with diet changed will send stool softening medication Hemorrhoids 95391623 K64 .9 [id number] ORLY BAUTISTA [facility] [address] [facility] [address] 10/10/2019 11:00:11 10/11/2019 10:06:30 Painless rectal bleeding 940965128 K62.5 patient with history of intermitte nt hematochez ia, constipati on/straini ng and known hemorrhoid s presents with another episode of blood in stool x 1 month. Last colonoscop y two years ago showed hemorrhoid s and some polyps of benign etiology. She does not know when her f/u is.. She denies pain, diarrhea, dark stools, fever, chills. ddx: hemorrhoid s, diverticul osis, IBD, malignancy - obtain colonoscop y results - increase fiber diet - stay hydrated - if continues to have straining with diet changed will send stool softening medication - GI Cholesterol screening 27 0134415 Z13.656 [id number] ORLY BAUTISTA [facility] [address] [place] [address] 01/27/2020 11:39:48 02/02/2020 03:46:47 [id number] ORLY BAUTISTA [facility] [address] [place] [address] 05/24/2020 13:52:12 05/25/2020 10:55:23 Painless rectal bleeding 385755744 K62.5 patient with history of intermitte nt hematochez ia, constipati on/straini ng and known haemorrhoi d . Last colonoscop y She thinks was [address] [facility] in [place]. . She denies pain, diarrhea, dark stools, fever, chills. ddx: haemorrhoi d's, diverticul osis, IBD, malignancy - obtain colonoscop y results, record relase auth filled out and sent - increase fiber diet - stay hydrated - if continues to have straining with diet changed will send stool softening medication - GI Cholesterol screening 27 1375184 Z13.220 Administra tion of diphtheria, pertussis, and tetanus vaccine 769101160 Z23 Anemia 232829346 D64.9 hGB 9.4 11/2019. Denies fatigue, bright red blood in a long time. Will recheck labs Low back pain 702730954 M54.5 mild low back pain after picking up boxes at work. She stretches and it helps. May take tylenol or ibuprofen for pain. Gave informatio n on back pain and exercises to do at home. If no improvemen t f/u. Adult heal th examination 355212665 Z00.01 Patient presents for annual exam. Vitals wnl. Needs colonoscop y. UTD on pap. - given tdap shot today - f/u yearly or prn - 30 mins exercise 5x week [id number] ORLY BAUTISTA [facility] [address] [place] [address] 05/29/2020 13:40:19 05/29/2020 21:58:12 Tuberculosis screening 021352409 Z11.1 [id number] ORLY BAUTISTA [facility] [address] [place] [address] 08/20/2020 08:33:35 08/21/2020 07:44:02 Constipation 81308717 K59.00 Patient diagnosed with constipati on at [facility]. feeling much better today and increasing her fiber and fluid intake. no more symptoms today. Needs work release. - more fluids - increase veggies. 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 She needs note for work - may use vaseline on broken skin- protect hands from chemicals- working hands, cerave, cetaphil, aveeno may help with dry skin [id number] ORLY BAUTISTA [facility] [address] [place] [address] 11/29/2021 11:12:26 12/03/2021 08:58:49 Cholesterol screening 088887129 Z13.220 screen Anemia 649306240 D64.9 hGB 9.4 11/2019., 10.7 05/2020 Denies fatigue, bright red blood in a long time. Will recheck labs. needs colonoscop y. order placed Overweight 026778549 E66 .3 Screening mammography 919002 Screening for malignant neoplasm of colon 938630317 Z12.11 had one 2008 for rectal bleeding. normal Herpes simplex 90436109 B00.9 patient says she was told she had herpes via blood exam. She has had cold blisters but never had an outbreak of gential herpes. She is not currently sexually active sine 2008. As she has never had genital herpes outbreak and she takes medication as needed when she feels like she's getting sick with what she describes as cold symptoms will stop chronic medication . Will treat as needed. Lots of anxiety about taking her medication away. risks v benefits discussed on being on correction medication that is not being takes as prescribed . - stop medication - will bring back in a month to make sure yen is doing okay, very anxious [id number] Lisa Ortiz DO [facility] [address] [place] [address] 01/22/2022 11:47:55 01/23/2022 08:01:18 Screening for malignant neoplasm of colon 909832608 Z12.11 last colonoscop y 6-7 years ago with polyps. No family historyNo CV/pulm issues relayed by patient. Irritable bowel syndrome 34503074 K58.9 patient to continue with probiotics . Can try her IBgard. If no improvemen t, can consider GasX [id number] ORLY BAUTISTA [facility] [address] [place] [address] 07/22/2022 12:27:31 07/22/2022 13:03:32 Spinal stenosis of lumbar region 65610241 M48.061 pain lasted 3 weekspain free as of one week. no sx today.agre es to PTPEX: normal ROM. no pain on lumbar palpation. CT lumbar spine (06/2022):L 3-L4, L4-L5 & L5-S1 Disc bulge, severe facet OA, mild b/l neural stenosis. mild central canal stenosis. Screening for malignant neoplasm of colon 586032474 Z12.11 had one 2008 for rectal bleeding. normal Screening mammography 24 101027 Z12.31 Prediabetes 197493509 R7 3.03 6.1 2021 Iron defic iency anemia 55328896 D50.9 repeat [id number] ORLY BAUTISTA [facility] [address] [place] [address] 12/08/2022 09:33:33 12/08/2022 09:57:48 Edema of lower extremity 367424035 R60.0 1-2+ pitting edema to mid leg. 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 did not take hcz today. patient educated on BP, checking at home, diet and health problems a/w with high BP including stroke, MT, , kidney damage.re- start hcz for leg swelling and BP controlshe is to check bp [facility] Anemia 490838962 D64.9 hGB 10.8 ( 07/2022) 9.4 (11/2019), 10.7 (05/2020) Prediabetes 895842694 R7 3.03 5.9% (07/2022) 6.1% 2021 Edema of l ower extremity 580270094 R60.0 1+ pitting edema to mid leg. a nodule like induration palpated on R gastrocnem ius.- watch sodium-paige vate legs- wear compressio n when on feet- negative lazaro sign [id number] Abelardo Foreman MD [facility] [address] [place] [address] 02/18/2024 11:15:33 02/18/2024 12:07:05 Gynecologic examination 15029394 Z01.419 Patient presents for pap. no history of abnormal paps. HX of herpes. - mammogram UTD 05/2023- CBE normal- breast education provided Overweight 644769791 E66 .3 Essential hypertension 21250604 I10 150/78 today, not controlled . did not take hcz today. patient educated on BP, checking at home, diet and health problems a/w with high BP including stroke, MT, , kidney damage.she is to check [facility] [id number] Abelardo Foreman MD [facility] [address] [place] [address] 04/19/2024 08:54:27 04/19/2024 09:48:09 Essential hypertension 55304890 I10 170/79 today, not controlled . did not take hcz today. patient educated on BP, checking at home, diet and health problems a/w with high BP including stroke, MT, , kidney damage.she is to [facility] Bilateral shoulder joint pain 0920343520 6432571 M25.511 b/l shoulder pain from lifting heavy at work. finishing R shoulder therapy and would like to start therapy for left side.work is allowing her to do light duty. letter written for patient PEX: limited limited abduction with internal rotation. 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 - start PT- f/u 6-8 weeks- ICE/nsaid prn Overweight 593465567 E66 .3 bmi 27.5 Health Concerns Section Related Observation LastModified by Organization Detai ls LastModified Time None Recorded Concern Status LastModified by Organization Details LastModified Time None Recorded Advance Directives Directive N: Payers Insurance Date Sequence Insurance Name Policy Number Policy Thomas Covered Member ID Thomas Member ID Guarantor Name 07/22/2022 1 [facility] - DUAL OPTIONS (MEDICARE - MEDICAID REPLACEMENT HMO) [id number] Raegan Cristino [id number] Raegan Brenton Cristino 11/29/2021 2 [facility] [id number] Raegan Cristino [id number] Raegan R Cristino 10/08/2018 1 *SELF PAY* Al esia Brenton Cristino 05/23/2020 SLIDING FEE SCHEDULE - DISCOUNT Raegan R Cristino 11/08/2021 2 [place] [employer] Raegan Cristino [id number] Raegan R Cristino 05/03/2021 1 [facility] Raegandonal Gregg [id number] Raegan R Cristino 07/11/2024 1 [facility] BENEFIT PLAN MANAGEMENT - [facility] [id number] Raegan Cristino [id number] Raegan R Cristino 11/08/2021 1 [facility] [id number] Raegandonal Gregg [id number] Raegan R Cristino 05/03/2021 3 [facility] - OPEN ACCESS [id number] Raegan Cristino [id number] Raegan R Cristino Notes Date Note Type Note Provider Name and Address Organization Details Recorded Time 12/08/2022 text/html Raegan presents for swelling b/l legs she has had swelling b/l legs worse towards the end of the day. patient stands most of the day for her job. She does not wear compression socks. she also feels some knots on the back of her calf. has not been to ER. denies pain, cp, sob, palpitations. ORLY BAUTISTA Attn: Accounting,[address] [place], [address], [facility] 12/08/2022 14:26:17 02/04/2023 text/html Raegan presents for swelling b/l legs she has had swelling b/l legs worse towards the end of the day. legs to get painful. patient stands most of the day for her job. She does not wear compression socks. she also feels some knots on the back of her calf. has been to ER where US legs normal. ON chart review BP elevated at ER visit. states she follows pescetarian diet. she eats vegan meats. denies pain, cp, sob, palpitations. ORLY BAUTISTA Attn: Accounting,[address] , [place], [address], [place] - [facility] 02/04/2023 17:06:44 07/20/2023 text/html Raegan presents for f/u and labs Raegan has not been taking hcz tablet since her legs are not swelling much. She has not checked BP at home. Never got her cuff states she follows pescetarian diet. She did see vascular and they are not worried about her slightly abnormal CLAUDINE results. she eats vegan meats. denies pain, cp, sob, palpitations. she is here for labs also. has hx of anemia. denies more fatigue than normal. she is in classes and sometimes srays up to study. colon screen: completed at [facility] 2022, need records ORLY BAUTISTA Attn: Accounting,[address] [facility], [place], [address], [facility] 07/20/2023 10:17:08 02/18/2024 text/html Raegan is here f or pap smear LMP: menopauseLast Pap: 2019 NILM HPV negativeLast mammogram: normal 06/2023Fam hx: denies breast, cervical, uterine, ovarian cancers 12/27/23 [place] , normal fedder ORLY BAUTISTA Attn: Accounting[address] [facility], [place], [address], [facility] 02/18/2024 12:06:08 04/19/2024 text/html Raegan is a 61 Y O AAF here for back pain f/u Raegan presents for shoulder pain. 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 This caused her to use left side more and she recently feels like her left shoulder is now hurting leading to ER visit, worst than labor pains. XRay in ER found to have arthritis. PT for right shoulder started february 2x per week and has had 8 visits. She is scheduling her for 8 more. Left shoulder better but occasional has pain 5/10. Right shoulder still has trouble reaching back. Pain in R shoulder exacerbated with certain movements and lifting. For pain takes advil as needed maybe once per week. no numbness or tingling from injury. no dropping items. trouble lifting anything heavier than a gallon of milk. ORLY BAUTISTA Attn: Accounting[address] [place], [address], [facility] 04/28/2024 08:31:04 OBGyn Episode No OBEpisode recorded.
--- OUTSIDE RECORDS SUMMARY | 2024-08-18 23:52 | XMS_ITS | Referral Summary ---
Author Organization [facility] Building [address] Address [address] [place] [address] Care Team Providers Care Visiting Teacher Name Role Phone Theresa Persaud MD Primary Care Provider [phone] Allergies Active Allergy Reactions Criticality Noted Date Comments Tree Nut Medications No known medications Active Problems Problem Noted Date Diagnosed Date Peripheral vascular disease, unspecified 024 Assessment & Plan (07/16/2023 7:37 AM CDT): Based on her history and clinically no evidence of PVD. ABIs are normal from [facility], abnormal digital brachial indices which may represent some microvascular disease. Can follow up as needed. 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 Gender Identity Not on file Sexual Orientation Not on file Last Filed Vital Signs Vital Sign Reading Time Taken Comments Blood Pressure 162/80 07/15/2023 9:07 AM CDT Pulse 58 07/15/2023 9:07 AM CDT Temperature - - Respiratory Rate - - Oxygen Saturation 99% 07/15/2023 9:07 AM CDT Inhaled Oxygen Concentration - - Weight 82.6 kg (182 lb) 09/15/2013 1:26 PM CDT Height 177.8 cm (5' 10) 09/15/2013 1:26 PM CDT Body Mass Index 26.11 09/15/2013 1:26 PM CDT Plan of Treatment Not on file Procedures Procedure Name Priority Date/Time Associated Diagnosis Comments DIGITAL MAMMOGRAPHY Routine 09/06/2013 1 1:44 AM CDT from Last 3 Months or Most Recently Relevant to Health Maintenance Results * DIGITAL MAMMOGRAPHY (09/06/2013 11:44 AM CDT) Anatomical Region Laterality Modality Breast Mammography 09/06/2013 11:4 4 AM CDT Narrative 09/06/2013 9:42 PM CDT Mammogram Performed by: DR Lopez Mamm Bi Acc#: [id number] DATE OF EXAM: Sep 06 2013 CLINICAL HISTORY: Routine screening. RESULT: Superior-inferior and lateral oblique views of each breast were obtained using the low dose technique. There is a mild to moderate amount of fibroglandular tissue. The appearance is quite symmetrical. There is no skin thickening or retraction or pathological calcification. Digital technology was employed plus computer-aided detection software (R2) was utilized in interpretation of these images. This facility utilizes a reminder system to notify patients of yearly mammograms. IMPRESSION: MILD TO MODERATE FIBROGLANDULAR TISSUE WITH NO NEOPLASM IDENTIFIED. BI RADS CATEGORY 2 BENIGN FINDING. Interpreting Physician: ZAHIDA ASHLEY M.D. Read on: Sep 06 2013 11:44A Transcribed by: maco On: Sep 06 2013 3:53P Approved Electronically by: ZAHIDA ASHLEY M.D. on: Sep 06 2013 9:42P Ordering DR: DR SHAW MEDEROS Attending DR: DR SHAW MEDEROS Procedure Note Provider, MD Renan - 07/14/2016 Mammogram Performed by: DR Lopez Mamm Bi Acc#: [id number] DATE OF EXAM: Sep 06 2013 CLINICAL HISTORY: Routine screening. RESULT: Superior-inferior and lateral oblique views of each breast were obtainedusing the low dose technique. There is a mild to moderate amount offibroglandular tissue. The appearance is quite symmetrical. There is noskin thickening or retraction or pathological calcification. Digitaltechnology was employed plus computer-aided detection software (R2) wasutilized in interpretation of these images. This facility utilizes [employer] system to notify patients of yearly mammograms. IMPRESSION: MILD TO MODERATE FIBROGLANDULAR TISSUE WITH NO NEOPLASM IDENTIFIED. BIRADS CATEGORY 2 BENIGN FINDING. Interpreting Physician: ZAHIDA ASHLEY M.D. Read on: Sep 06 201311:44A Transcribed by: maco On: Sep 06 2013 3:53P Approved Electronically by: ZAHIDA ASHLEY M.D. on: Sep 06 20139:42P Ordering DR: DR SHAW MEDEROS Attending DR: DR SHAW MEDEROS us Historical Provider MD BENJAMIN MAMMO PROCEDURES Radha l Result from Last 3 Months or Most Recently Relevant to Health Maintenance Insurance [employer] [id number] [id number] Care Teams Visiting Teacher Relationship Specialty Start Date End Date Theresa Persaud MD [address] [place] [address] PCP - General Internal Medicine 10/22/17
--- OUTSIDE RECORDS SUMMARY | 2024-08-18 23:52 | XMS_ITS | Clinical Summary ---
Author Organization [facility] Building [address] Address [address] [place] [address] Care Team Providers Care Lead Principal Technical Architect Name Role Phone Theresa Persaud MD Primary Care Provider [phone] Allergies Active Allergy Reactions Criticality Noted Date Comments Tree Nut Medications No known medications Active Problems Problem Noted Date Diagnosed Date Peripheral vascular disease, unspecified 024 Assessment & Plan (07/16/2023 7:37 AM CDT): Based on her history and clinically no evidence of PVD. ABIs are normal from [facility], abnormal digital brachial indices which may represent some microvascular disease. Can follow up as needed. 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 Gender Identity Not on file Sexual Orientation Not on file Obstetrics History Last Filed Vital Signs Vital Sign Reading [...] 09/15/2013 1:26 PM CDT Plan of Treatment Health Maintenance Due Date Last Done Comments Cervical Cancer Screening 1961 Colon Cancer Screening-Colonoscopy 1961 Depression Screening 1961 Hepatitis C Screening 1961 Hepatitis B Screening 12/27/1979 Regular Well Visit/Exam 18-64 12/27/1979 Zoster Vaccine (1 of 2) 12/27/2011 Covid-19 Vaccine ( - season) 2023 10/24/2020, 09/13/2020, 07/11/2020, Additional history exists Breast Cancer Screening-Mammogram 05/28/2024 05/29/2023, 05/28/2023, 02/24/2020, Additional history exists Influenza Vaccine (Season Ended) 2024 DTaP/Tdap/Td Vaccine (2 - Td or Tdap) 05/24/2030 05/24/2020 Pneumococcal vaccine <65 Aged Out No longer eligible based on patient's age to complete this topic Procedures Procedure Name Priority Date/Time Associated Diagnosis Comments DIGITAL MAMMOGRAPHY Routine 09/06/2013 1 1:44 AM CDT from Last 3 Months or Most Recently Relevant to Health Maintenance Results * DIGITAL MAMMOGRAPHY (09/06/2013 11:44 AM CDT) Anatomical Region Laterality Modality Breast Mammography 09/06/2013 11:4 4 AM CDT Narrative 09/06/2013 9:42 PM CDT Mammogram Performed by: DR Lopez Mamm Bi Acc#: [id number] DATE OF EXAM: Sep 06 2013 CLINICAL [...] Performed by: DR Lopez Mamm Bi Acc#: [id number] DATE OF EXAM: Sep 06 2013 CLINICAL [...] interpretation of these images. This facility utilizes [employer] system to notify patients of yearly mammograms. IMPRESSION: MILD TO MODERATE FIBROGLANDULAR TISSUE WITH NO NEOPLASM IDENTIFIED. BIRADS CATEGORY 2 BENIGN FINDING. Interpreting Physician: ZAHIDA ASHLEY M.D. Read on: Sep 06 201311:44A Transcribed by: maco On: Sep 06 2013 3:53P Approved Electronically by: ZAHIDA ASHLEY M.D. on: Sep 06 20139:42P Ordering DR: DR SHAW MEDEROS Attending DR: DR SHAW MEDEROS Historical Provider IMAdele MAMMO PROCEDURES Radha l Result from Last 3 Months or Most Recently Relevant to Health Maintenance Insurance [facility] [facility] Care Teams Lead Principal Technical Architect Relationship Specialty Start Date End Date Theresa Persaud MD [address] [place] [address] PCP - General Internal Medicine 10/22/17
[2024-08-18 23:54] VITALS: BP 184/82; PULSE 81; RESP 16; TEMP 36.4; O2SAT 100
--- OUTSIDE RECORDS SUMMARY | 2024-08-19 00:51 | XMS_ITS | Clinical Summary ---
Author Organization [facility] Office Building B Address [address] [place] [address] Care Team Providers Care Solutions Executive Cloud Sales Name Role Phone Theresa Persaud MD Primary Care Provider [phone] Allergies Active Allergy Reactions Criticality Noted Date Comments Tree Nut Medications No known medications Active Problems Problem Noted Date Diagnosed Date Peripheral vascular disease, unspecified 024 Assessment & Plan (07/16/2023 7:37 AM CDT): Based on her history and clinically no evidence of PVD. 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 This facility utilizes [employer] system to notify patients of yearly mammograms. [...] Recently Relevant to Health Maintenance Insurance [employer] ON LICENSE OF [facility] Care Teams Solutions Executive Cloud Sales Relationship Specialty Start Date End Date Theresa Persaud MD [address] [place] [address] PCP - General Internal Medicine 10/22/17
--- OUTSIDE RECORDS SUMMARY | 2024-08-19 00:51 | XMS_ITS | Referral Summary ---
[facility] Address [address] [place] [address] Care Team Providers Care Helminthology Teacher Name Role Phone Theresa Persaud MD Primary Care Provider [phone] Allergies Active Allergy Reactions Criticality Noted Date Comments Tree Nut Medications No known medications Active Problems Problem Noted Date Diagnosed Date Peripheral vascular disease, unspecified 024 Assessment & Plan (07/16/2023 7:37 AM CDT): Based on her history and clinically no evidence of PVD. ABIs are normal from [facility], abnormal digital brachial indices which may represent some microvascular disease. Can follow up as needed. 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 This facility utilizes [employer] system to notify patients of yearly mammograms. [...] to Health Maintenance Insurance [employer] ALLE[employer]ANCE [address] [id number] Care Teams Helminthology Teacher Relationship Specialty Start Date End Date Theresa Persaud MD [address] [place] [address] PCP - General Internal Medicine 10/22/17
--- NOTE | 2024-08-19 00:53 | ED_ITS ---
HPI - General Adult General Chief complaint: Head Injury Stated complaint: hit head at work Time Seen by Provider: 08/19/24 00:41 History of Present Illness HPI narrative: Patient is a 63-year-old female who presents ER with headache. 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 Each day when she checks into work for last 2 weeks she has turned and then struck her head on it. Today she hit her head on a and she feels like she has h ad headache since then. She did have some blurred vision. No numbness or weakness to an arm or leg. No loss of consciousness. She is not on blood thinning medication. Occasionally when she hits the power supply she had been wearing a hat did not see it. Related Data Allergies Allergy/AdvReac Type Severity Reaction Status Date / Time No Known Allergies Allergy Verified 01/11/24 14:20 Review of Systems Review of Systems: All systems reviewed & are unremarkable except as noted in HPI and below Constitutional: Constitutional: Reports no additional constitutional complaints Eyes: Eyes: Reports no additional eye complaints Neurologic: Reports system reviewed and no additional complaints, except as documented PMFSH Past Medical History Medical History No pertinent past medical history Surgical History Surgical History No pertinent past surgical history Social History Social History Smoking status: Never smoker Alcohol intake: never Substance use: never Substance use type: does not use Do You Feel Safe in your Home?: Yes Lack of Transportation: No Lack of Food: Never True Current Housing: I Have Housing Concerned About Future Housing: No Difficulty Paying Gas/Electric Bills: No Difficulty Paying for Meds: No Currently Unemployed: No Education: Associate Degree Difficulty w/ Childcare or Family Care: No Living arrangements: with family Gender identity (if verbalized by the patient): Female Spiritual care concerns: No Exam Narrative: GENERAL: Well-appearing, well-nourished, and in no acute distress. HEAD: Normocephalic, atraumatic. No bruising or abrasions to forehead. EYES: PERRL and EOMI. ENT: Mucous membranes moist. EXTREMITIES: Normal range of motion. No edema. NEURO: No facial droop patient declines smiling due to headache. Clear speech. No expressive aphasia. Alert and oriented x3. PSYCH: Normal mood and affect. Course Course Emergency Course: Tylenol here for pain. Blood pressure elevated but has also had elevated blood pressure in the past. Suspect headache from repeated head trauma. Recommend Tylenol and be more aware of her surroundings. Vital Signs Vital signs: Vital Signs Temperature 97.5 F L 08/18/24 23:54 Pulse Rate 81 08/18/24 23:54 Respiratory Rate 16 08/18/24 23:54 Blood Pressure 184/82 H 08/18/24 23:54 Pulse Oximetry 100 08/18/24 23:54 Oxygen Delivery Room Air 08/18/24 23:54 Temperature 97.7 F 08/19/24 01:30 Pulse Rate 72 08/19/24 01:30 Respiratory Rate 16 08/19/24 01:30 Blood Pressure 141/90 H 08/19/24 01:30 Pulse Oximetry 97 08/19/24 01:30 Oxygen Delivery Room Air 08/18/24 23:54 Medical Decision Making MDM Narrative Medical decision making narrative: [place] CT Head Injury/Trauma Rule from [employer]Fixed - Parking Tickets on 08/19/2024 All calculations should be rechecked by clinician prior to use RESULT SUMMARY: CT Unnecessary The [place] CT Head Rule suggests a head CT is not necessary for this patient (sensitivity 83-100% for all intracranial traumatic findings, sensitivity 100% for findings requiring neurosurgical intervention). INPUTS: Age <16 years ?> 0 = No Patient on blood thinners ?> 0 = No Seizure after injury ?> 0 = No GCS <15 at 2 hours post-injury ?> 0 = No Suspected open or depressed skull fracture ?> 0 = No Any sign of basilar skull fracture? ?> 0 = No >= episodes of vomiting ?> 0 = No Age >=5 years ?> 0 = No Retrograde amnesia to the event >=30 minutes ?> 0 = No ?Dangerous? mechanism? ?> 0 = No Vital Signs Vital Signs: Vital Signs Temperature 97.5 F L 08/18/24 23:54 Pulse Rate 81 08/18/24 23:54 Respiratory Rate 16 08/18/24 23:54 Blood Pressure 184/82 H 08/18/24 23:54 Pulse Oximetry 100 08/18/24 23:54 Oxygen Delivery Room Air 08/18/24 23:54 Temperature 97.7 F 08/19/24 01:30 Pulse Rate 72 08/19/24 01:30 Respiratory Rate 16 08/19/24 01:30 Blood Pressure 141/90 H 08/19/24 01:30 Pulse Oximetry 97 08/19/24 01:30 Oxygen Delivery Room Air 08/18/24 23:54 Discharge Plan Discharge Clinical Impression: Headache, Concussion without loss of consciousness Patient Disposition: Home Condition: Stable Instructions: General Headache (ED) Additional Instructions: Try to stay well hydrated at home. Please return to the emergency department if you develop worsening of your headache or a new headache which is severe, associated with vision changes, associated with neck stiffness or fever, or if it is different from any other headache that you have had before. Return to the emergency department if you develop numbness, weakness or tingling or problems with coordination, or if you develop severe nausea and vomiting and are unable to keep down fluids at home. Patient Language: Uzbek Prescriptions: No Action cyclobenzaprine 10 mg tablet 10 mg PO TID PRN (Reason: muscle spasm) Qty: 14 0RF Follow-up/Referrals: Tete,ORLY Fan [Primary Care Provider] -
[2024-08-19] MEDS: ACETAMINOPHEN 325 MG TABLET 650 MG PO (01:17)
[2024-08-19 01:30] VITALS: BP 141/90; PULSE 67; PULSE 72; RESP 16; TEMP 36.5; O2SAT 97; O2SAT 99
== END 2024-08-19 01:29 | disposition home or self-care (01) ==
PROVIDERS: Emergency Provider Emergency Medicine; PCP Physician Assistant
DX: S06.0X0A Concussion without loss of consciousness, initial encounter (principal); W22.09XA Striking against other stationary object, initial encounter; Y99.0 Civilian activity done for income or pay
CPT/HCPCS: 99283; A9270

== ENCOUNTER 2024-08-25 07:21 | Outpatient (CLI) | payer OTHER, SELFPAY ==
--- NOTE | ~2024-08-25 | MM_ITS ---
EXAMINATION: MM screening judd BI w alondra HISTORY: Screening TECHNIQUE: Craniocaudal and mediolateral oblique 3-D tomosynthesis images were obtained and synthetic 2-D images were generated. CAD analysis was submitted and interpreted. COMPARISON: Comparison to multiple prior studies sequentially, with oldest reviewed study dated 02/06. BREAST PARENCHYMAL COMPOSITION: Not dense: There are scattered areas of fibroglandular density. FINDINGS: There is no evidence of suspicious mass, calcification, or architectural distortion to sugg est malignancy in either breast. There has been no suspicious interval change. IMPRESSION: 1. No mammographic evidence of malignancy. 2. Recommend routine screening mammography in one year. BI-RADS Category 1: Negative Reviewed, dictated and finalized at location A.
--- OUTSIDE RECORDS SUMMARY | 2024-08-25 07:27 | XMS_ITS | Data Portability ---
Author Organization [facility] Address [address] [place] [address] Care Team Providers Care Electrician Journeyman Wireman Name Role Phone DEON DOMINGUEZ Primary Care Provider [phone] Assessment Encounter Date Assessment Date Assessment LastModified [...] [facility], [address], [address], [place], [address], 02/25/2024 12:26:13 HbA1c (hemoglob in A1c), blood 2023 024 [facility], [address], [address], [place], [address], 07/21/2023 09:14:49 CMP, serum or plasma 2023 024 [facility], [address], [address], [place], [address], 07/21/2023 09:14:46 albumin/c reatinine , mass ratio, urine 2023 024 [facility], [address], [address], [place], [address], 07/21/2023 09:14:43 lipid panel, serum 2023 024 [facility], [address], [address], [place], [address], 07/21/2023 09:14:45 iron + total iron-bind ing capacity (TIBC), serum 2023 024 [facility], [address], [address], [place], [address], 07/21/2023 09:14:47 ferritin, serum or plasma 2023 024 [facility], [facility] [address], [place], [address], 07/21/2023 09:14:50 CBC w/ auto diff 2023 024 [facility], [facility] [address], [address], [place], [place], [address], 07/21/2023 09:14:51 Referral physical therapist referral - continue another 8 session of PT [address], [address], [place], [address], 05/06/2024 07:55:04 Procedures None recorded. Surgeries None recorded. Imaging US, duplex, venous, lower extremity - swelling and knots 2022 023 [facility] ([facility]) , [address], [place], [address], 12/20/2022 16:31:29 Medication Orders hydrochlo rothiazid e 12.5 mg tablet 2024 025 [id number], [address] [place], [place], [id number], 04/19/2024 09:12:30 hydrochlo rothiazid e 12.5 mg tablet 2023 024 [facility] #77005, [address] [place], [place], [id number], 02/18/2024 12:05:46 hydrochlo rothiazid e 12.5 mg tablet 2023 024 [facility] #[id number], [address] [place], [place], [id number], 07/20/2023 10:03:20 hydrochlo rothiazid e 12.5 mg tablet 2022 023 [facility]88331, [address] [place], [place], [id number], 02/04/2023 17:03:13 Patient TargetsNo targets recorded. Patient Instructions Encounter Date Encounter Id Patient Instructions Last Modified By Organization Details Last Modified Time 02/04/2023 [id number] (CLAUDINE) ankle brachial index* SD Not available 06/02/2023 14:00:03 02/18/2024 [id number] A healthy lifestyle: care instructions Not available 02/18/2024 12:02:07 04/19/2024 [id number] A healthy lifestyle: care instructions [email or web address] Not available 04/28/2024 08:26:24 Reason for Referral Physical Therapist Referral for Bilateral shoulder joint pain continue another 8 session of PT Referring Physician: Deon Dominguez, Tow Motor Operator, Encounter Date: 04/19/2024 Results Created Date Observation Date Name Description Value Unit Range Abnormal Flag Note LastModifiedBy Organization Detail LastModifiedTime 07/20/19 24 07/21/2023 ALBUM IN/CR EATIN INE RATIO ,URIN E creatinine, urine 285.5 mg/dL notest ab. Not Available [facility] ([facility]) [address] [place], [address], 07/21/2023 09:14:43 07/20/19 24 07/21/2023 ALBUM IN/CR EATIN INE RATIO ,URIN E albumin, urine 17.3 ug/mL notest ab. Not Available [facility] ([facility]) [address] [place], [address], 07/21/2023 09:14:43 07/20/19 24 07/21/2023 ALBUM IN/CR EATIN INE RATIO ,URIN E alb/creat ratio 6 mg/g_ creat 0-29 Landy l: 0 - 29 Moder ately incre ased: 30 - 300 Sever merry incre ased: >300 Not Available [facility] ([facility]) [address] [place], [address], 07/21/2023 09:14:43 07/20/19 24 07/21/2023 LIPID PANEL cholesterol, total 185 mg/dL 100-19 9 Not Available [facility] ([facility]) [address] [place], [address], 07/21/2023 09:14:45 07/20/19 24 07/21/2023 LIPID PANEL triglyceride s 56 mg/dL 0-149 Not Available [facility] ([facility]) [address] [place], [address], 07/21/2023 09:14:45 07/20/19 24 07/21/2023 LIPID PANEL HDL cholesterol 67 mg/dL >39 Not Available [facility] ([facility]) [address] [facility], [place], [address], 07/21/2023 09:14:45 07/20/19 24 07/21/2023 LIPID PANEL VLDL cholesterol lex 11 mg/dL 5-40 Not Available [facility] ([facility]) [address] [place], [address], 07/21/2023 09:14:45 07/20/19 24 07/21/2023 LIPID PANEL LDL chol calc ([facility]) 107 mg/dL 0-99 above high normal Not Available [facility] ([facility]) [address] [place], [address], 07/21/2023 09:14:45 07/20/19 24 07/21/2023 COMP. METAB OLIC PANEL (14) glucose 94 mg/dL 70-99 Not Available [facility] ([facility]) [address] [place], [address], 07/21/2023 09:14:46 07/20/19 24 07/21/2023 COMP. METAB OLIC PANEL (14) BUN 16 mg/dL 8-27 Not Available [facility] ([facility]) [address] [place], [address], 07/21/2023 09:14:46 07/20/19 24 07/21/2023 COMP. METAB OLIC PANEL (14) creatinine 0.88 mg/dL 0.57-1 .00 Not Available [facility] ([facility]) [address] [place], [address], 07/21/2023 09:14:46 07/20/19 24 07/21/2023 COMP. METAB OLIC PANEL (14) eGFR 75 mL/mi n/1.7 3 >59 Not Available [facility] ([facility]) [address] [place], [address], 07/21/2023 09:14:46 05/13/20 24 07/21/2023 COMP. METAB OLIC PANEL (14) BUN/creatini ne ratio 18 12-28 Not Available [facility] ([facility]) [address] [place], [address], 07/21/2023 09:14:46 07/20/19 24 07/21/2023 COMP. METAB OLIC PANEL (14) sodium 140 mmol/ L 134-14 4 Not Available [facility] ([facility]) [address] [place], [address], 07/21/2023 09:14:46 07/20/19 24 07/21/2023 COMP. METAB OLIC PANEL (14) potassium 4.5 mmol/ L 3.5-5. 2 Not Available [facility] ([facility]) [address] [place], [address], 07/21/2023 09:14:46 07/20/19 24 07/21/2023 COMP. METAB OLIC PANEL (14) chloride 103 mmol/ L 96-106 Not Available [facility] ([facility]) [address] [place], [address], 07/21/2023 09:14:46 07/20/19 24 07/21/2023 COMP. METAB OLIC PANEL (14) carbon dioxide, total 25 mmol/ L 20-29 Not Available [facility] ([facility]) [address] [place], [address], 07/21/2023 09:14:46 07/20/19 24 07/21/2023 COMP. METAB OLIC PANEL (14) calcium 8.8 mg/dL 8.7-10 .3 Not Available [facility] ([facility]) [address] [place], [address], 07/21/2023 09:14:46 07/20/19 24 07/21/2023 COMP. METAB OLIC PANEL (14) protein, total 6.7 g/dL 6.0-8. 5 Not Available [facility] ([facility]) [address] [facility], [place], [address], 07/21/2023 09:14:46 07/20/19 24 07/21/2023 COMP. METAB OLIC PANEL (14) albumin 4.4 g/dL 3.9-4. 9 Not Available [facility] ([facility]) [address] [facility], [place], [address], 07/21/2023 09:14:46 07/20/19 24 07/21/2023 COMP. METAB OLIC PANEL (14) globulin, total 2.3 g/dL 1.5-4. 5 Not Available [facility] ([facility]) [address] [facility], [place], [address], 07/21/2023 09:14:46 07/20/19 24 07/21/2023 COMP. METAB OLIC PANEL (14) A/G ratio 1.9 1.2-2. 2 Not Available [facility] ([facility]) [address] [facility], [place], [address], 07/21/2023 09:14:46 07/20/19 24 07/21/2023 COMP. METAB OLIC PANEL (14) bilirubin, total 0.4 mg/dL 0.0-1. 2 Not Available [facility] ([facility]) [address] [facility], [place], [address], 07/21/2023 09:14:46 07/20/19 24 07/21/2023 COMP. METAB OLIC PANEL (14) alkaline phosphatase 66 IU/L 44-121 Not Available [facility] ([facility]) [address] [facility], [place], [address], 07/21/2023 09:14:46 07/20/19 24 07/21/2023 COMP. METAB OLIC PANEL (14) AST (SGOT) 15 IU/L 0-40 Not Available [facility] ([facility]) [address] [place], [address], 07/21/2023 09:14:46 07/20/19 24 07/21/2023 COMP. METAB OLIC PANEL (14) ALT (SGPT) 15 IU/L 0-32 Not Available [facility] ([facility]) [address] [place], [address], 07/21/2023 09:14:46 07/20/19 24 07/21/2023 IRON AND TIBC iron bind.cap.(TI BC) 316 ug/dL 250-45 0 Not Available [facility] ([facility]) [address] [place], [address], 07/21/2023 09:14:47 07/20/19 24 07/21/2023 IRON AND TIBC UIBC 239 ug/dL 118-36 9 Not Available [facility] ([facility]) [address] [place], [address], 07/21/2023 09:14:47 07/20/19 24 07/21/2023 IRON AND TIBC iron 77 ug/dL 27-139 Not Available [facility] ([facility]) [address] [facility], [place], [address], 07/21/2023 09:14:47 07/20/19 24 07/21/2023 IRON AND TIBC iron saturation 24 % 15-55 Not Available [facility] ([facility]) [address] [place], [address], 07/21/2023 09:14:47 07/20/19 24 07/21/2023 HEMOG LOBIN A1C hemoglobin A1C 6.1 % 4.8-5. 6 above high normal Predi abete s: 5.7 - 6.4 Diabe chandni: >6.4 Glyce juan carlos contr ol for adult s with diabe chandni: <7.0 Not Available [facility] ([facility]) [address] [place], [address], 07/21/2023 09:14:49 07/20/19 24 07/21/2023 AKIRA TIN ferritin 75 NG/mL 15-150 Not Available [facility] ([facility]) [address] [place], [address], 07/21/2023 09:14:50 07/20/19 24 07/21/2023 CBC WITH DIFFE RENTI AL/PL ATELE T WBC 4.1 x10e3 /uL 3.4-10 .8 Not Available [facility] ([facility]) [address] [place], [address], 07/21/2023 09:14:51 07/20/19 24 07/21/2023 CBC WITH DIFFE RENTI AL/PL ATELE T RBC 4.42 x10e6 /uL 3.77-5 .28 Not Available [facility] ([facility]) [address] [facility], [place], [address], 07/21/2023 09:14:51 07/20/1907/21/2023 CBC WITH DIFFE RENTI AL/PL ATELE T hemoglobin 11.2 g/dL 11.1-1 5.9 Not Available [facility] ([facility]) [address] [place], [address], 07/21/2023 09:14:51 07/20/1907/21/2023 CBC WITH DIFFE RENTI AL/PL ATELE T hematocrit 34.5 % 34.0-4 6.6 Not Available [facility] ([facility]) [address] [place], [address], 07/21/2023 09:14:51 07/20/1907/21/2023 CBC WITH DIFFE RENTI AL/PL ATELE T MCV 78 fL 79-97 below low normal Not Available [facility] ([facility]) [address] [place], [address], 07/21/2023 09:14:51 07/20/19 24 07/21/2023 CBC WITH DIFFE RENTI AL/PL ATELE T MCH 25.3 pg 26.6-3 3.0 below low normal Not Available [facility] ([facility]) [address] [facility], [place], [address], 07/21/2023 09:14:51 07/20/19 24 07/21/2023 CBC WITH DIFFE RENTI AL/PL ATELE T MCHC 32.5 g/dL 31.5-3 5.7 Not Available [facility] ([facility]) [address] [facility], [place], [address], 07/21/2023 09:14:51 07/20/19 24 07/21/2023 CBC WITH DIFFE RENTI AL/PL ATELE T RDW 13.7 % 11.7-1 5.4 Not Available [facility] ([facility]) [address] [facility], [place], [address], 07/21/2023 09:14:51 07/20/19 24 07/21/2023 CBC WITH DIFFE RENTI AL/PL ATELE T platelets 202 x10e3 /uL 150-45 0 Not Available [facility] ([facility]) [address] [facility], [place], [address], 07/21/2023 09:14:51 07/20/19 24 07/21/2023 CBC WITH DIFFE RENTI AL/PL ATELE T neutrophils 43 % notest ab. Not Available [facility] ([facility]) [address] [facility], [place], [address], 07/21/2023 09:14:51 07/20/19 24 07/21/2023 CBC WITH DIFFE RENTI AL/PL ATELE T lymphs 42 % notest ab. Not Available [facility] ([facility]) [address] [facility], [place], [address], 07/21/2023 09:14:51 07/20/19 24 07/21/2023 CBC WITH DIFFE RENTI AL/PL ATELE T monocytes 11 % notest ab. Not Available [facility] ([facility]) [address] [facility], [place], [address], 07/21/2023 09:14:51 07/20/19 24 07/21/2023 CBC WITH DIFFE RENTI AL/PL ATELE T eos 3 % notest ab. Not Available [facility] ([facility]) [address] [facility], [place], [address], 07/21/2023 09:14:51 07/20/19 24 07/21/2023 CBC WITH DIFFE RENTI AL/PL ATELE T basos 1 % notest ab. Not Available [facility] ([facility]) [address] [facility], [place], [address], 07/21/2023 09:14:51 07/20/19 24 07/21/2023 CBC WITH DIFFE RENTI AL/PL ATELE T neutrophils (absolute) 1.8 x10e3 /uL 1.4-7. 0 Not Available [facility] ([facility]) [address] [facility], [place], [address], 07/21/2023 09:14:51 07/20/19 24 07/21/2023 CBC WITH DIFFE RENTI AL/PL ATELE T lymphs (absolute) 1.7 x10e3 /uL 0.7-3. 1 Not Available [facility] ([facility]) [address] [facility], [place], [address], 07/21/2023 09:14:51 07/20/19 24 07/21/2023 CBC WITH DIFFE RENTI AL/PL ATELE T monocytes(ab solute) 0.4 x10e3 /uL 0.1-0. 9 Not Available [facility] ([facility]) [address] [facility], [place], [address], 07/21/2023 09:14:51 07/20/19 24 07/21/2023 CBC WITH DIFFE RENTI AL/PL ATELE T eos (absolute) 0.1 x10e3 /uL 0.0-0. 4 Not Available [facility] ([facility]) [address] [facility], [place], [address], 07/21/2023 09:14:51 07/20/19 24 07/21/2023 CBC WITH DIFFE RENTI AL/PL ATELE T baso (absolute) 0.0 x10e3 /uL 0.0-0. 2 Not Available [facility] ([facility]) [address] [facility], [place], [address], 07/21/2023 09:14:51 07/20/19 24 07/21/2023 CBC WITH DIFFE RENTI AL/PL ATELE T immature granulocytes 0 % notest ab. Not Available [facility] ([facility]) [address] [facility], [place], [address], 07/21/2023 09:14:51 07/20/19 24 07/21/2023 CBC WITH DIFFE RENTI AL/PL ATELE T immature grans (abs) 0.0 x10e3 /uL 0.0-0. 1 Not Available [facility] ([facility]) [address] [facility], [place], [address], 07/21/2023 09:14:51 02/18/20 24 02/18/2024 IGP,A PTIMA HPV,A GE GDLN age gdln acog testing 30-65 Not Available [facility] ([facility]) [address] [place], [address], 02/25/2024 12:26:10 02/18/20 24 02/20/2024 IGP, APTIM A HPV, RFX 16/18 ,45 HPV aptima Negati ve negati ve This nucle ic acid ampli ficat ion test detec ts fourt een high- risk HPV types (16,1 8,31, 33,35 ,39,4 5,51, 52,56 ,58,5 9,66, 68) witho ut diffe renti ation . Not Available [facility] ([facility]) [address] [facility], [place], [address], 02/25/2024 12:26:12 02/18/20 24 02/25/2024 IGP, APTIM A HPV, RFX 16/18 ,45 diagnosis: Lorena JOSHUA FOR INTRA EPITH ELIAL LESIO N OR MALFLORESITA BRITNI . CELLU LAR GOLDEN ES ASSOC IATED WITH ATROP HY AND INFLA MMATI ON ARE PRESE NT. Not Available [facility] ([facility]) [address] [facility], [place], [address], 02/25/2024 12:26:12 02/18/20 24 02/25/2024 IGP, APTIM A HPV, RFX 16/18 ,45 specimen adequacy: Lorena hines Satis facto ry for evalu ation . Endoc ervic al compo nent may not be disti nguis hed in cases of atrop hy. Parti ally obscu ring thick areas are prese nt. Scant cellu larit y Not Available [facility] ([facility]) [address] [facility], [place], [address], 02/25/2024 12:26:12 02/18/20 24 02/25/2024 IGP, APTIM A HPV, RFX 16/18 ,45 clinician provided ICD10: Lorena hines Z01.4 19 Not Available [facility] ([facility]) [address] [facility], [place], [address], 02/25/2024 12:26:12 02/18/20 24 02/25/2024 IGP, APTIM A HPV, RFX 16/18 ,45 performed by: Lorena haley Cytoflora hines (ASCP ) Not Available [facility] ([facility]) [address] [facility], [place], [address], 02/25/2024 12:26:12 02/18/20 24 02/25/2024 IGP, APTIM A HPV, RFX 16/18 ,45 QC reviewed by: Jayden Rubalcava visor y Cytot echsoledad hines (ASCP ) Not Available [facility] ([facility]) [address] [place], [address], 02/25/2024 12:26:12 02/18/20 24 02/25/2024 IGP, APTIM A HPV, RFX 16/18 ,45 . . Not Available [facility] ([facility]) [address] [place], [address], 02/25/2024 12:26:12 02/18/20 24 02/25/2024 IGP, APTIM [...] ts do occur . Not Available [facility] ([facility]) [address] [place], [address], 02/25/2024 12:26:12 02/18/20 24 02/25/2024 IGP, APTIM A HPV, RFX 16/18 ,45 test methodology: Lorena hines This liqui d based ThinP rep(R ) pap test was scree julia with the use of an image guide pal holbrook Not Available [facility] ([facility]) [address] [place], [address], 02/25/2024 12:26:12 02/18/20 24 02/25/2024 IGP, APTIM A HPV, RFX 16/18 ,45 HPV genotype reflex Commen t Crite mitzy not met, HPV Genot ype not perfo rmed. Not Available [facility] ([facility]) [address] [facility], [place], [address], 02/25/2024 12:26:12 12/21/19 23 12/20/2022 US, duple x, venou s, lower extre mity No observ ation record ed. [address] [facility], [place], [address], 01/27/2023 11:02:50 01/21/20 23 01/20/2023 US, duple x, venou s, lower extre mity No observ ation record ed. [address] [address], [place], [address], 01/21/2023 15:24:27 05/28/19 24 05/28/2023 MAMMO , scree zeina, bilat eral No observ ation record ed. [email or web address] [address], [place], [address], 06/01/2023 08:42:11 05/29/19 24 05/28/2023 MAMMO , scree zeina, bilat eral No observ ation record ed. [email or web address] [address], [place], [address], 06/01/2023 15:27:20 06/02/19 24 06/02/2023 (CLAUDINE) ankle brach ial index * No observ ation record ed. [address] [address], [place], [address], 07/22/2023 16:24:21 06/03/19 24 06/02/2023 (CLAUDINE) ankle brach ial index * No observ ation record ed. [address] [address], [place], [address], 07/22/2023 16:24:28 11/03/19 24 11/03/2023 XR, shoul brenda No observ ation record ed. [address] [address], [place], [address], 11/04/2023 09:45:32 11/16/19 24 11/16/2023 XR, chest , 2 view No observ ation record ed. [address] [address], [place], [address], 11/17/2023 13:24:51 11/16/19 24 11/16/2023 CT, angio gram, chest , w/wo contr ast No observ ation record ed. [address] [address], [place], [address], 11/17/2023 13:26:48 11/17/19 24 11/17/2023 cardi ac stres s test No observ ation record ed. [address] [address], [place], [address], 11/17/2023 13:27:50 11/17/19 24 11/17/2023 cardi ac stres s test No observ ation record ed. [address] [address], [place], [address], 11/17/2023 13:27:25 01/11/20 24 01/11/2024 XR, shoul brenda, 2 or more view No observ ation record ed. [email or web address] [address], [place], [address], 01/13/2024 14:30:52 Result Notes None recorded. Problems Name Problem SNOMED Code Status Onset Date Resolution Date Notes Provider Name and Address Organization Details Recorded Time Herpesvirus infection 22179184 Active 2018 [facility] [place] - [facility] 9 14:24:03 Irritable bowel syndrome 64776794 Active 2019 [facility] 0 12:17:36 Prediabetes 352751948 Active 2022 ORLY BAUTISTA Attn: Accountin g,[address] [facility], [place], [address], [place] [facility] 3 13:29:22 Iron deficiency anemia 28006842 Active 2022 ORLY BAUTISTA Attn: Accountin g,[address] [facility], [place], [address], [place] [facility] 3 13:29:23 Spinal stenosis of lumbar region 93829716 Active 2022 ORLY BAUTISTA Attn: Accountin g,[address] [facility], [place], [address], [place] [facility] 3 13:29:25 Varicose veins of lower extremity 44530735 Active 2022 ORLY BAUTISTA Attn: Accountin g,[address] [facility], [place], [address], [place] [facility] 3 14:23:58 Edema of lower extremity 267830009 Active 2022 ORLY BAUTISTA Attn: Accountin g,[address] [facility], [place], [address], [place] [facility] 3 14:24:02 Changes in skin texture 917488300 Active 2022 ORLY BAUTISTA Attn: Accountin g,[address] [facility], [place], [address], [place] [facility] 3 17:03:45 Essential hypertensio n 91077940 Active 2022 ORLY BAUTISTA Attn: Accountin g,[address] [facility], [place], [address], [place] [facility] 3 17:04:22 Intermitten t claudicatio n 40864280 Active 2022 ORLY BAUTISTA Attn: Accountin g,[address] [facility], [place], [address], [place] [facility] 3 17:04:35 Peripheral vascular disease 970313967 Active 2023 ORLY BAUTISTA Attn: Som pimentel,[address] [facility], [place], [address], [facility] - [facility] 4 16:19:07 Anemia 629554557 Active 2023 ORLY BAUTISTA Attn: Som pimentel,[address] [facility], [place], [address], [facility] - [facility] 4 10:12:30 Bilateral shoulder joint pain [id number] 9104 Active 2024 ORLY BAUTISTA Attn: Som pimentel,[address] [facility], [place], [address], [facility] - [facility] 5 08:30:18 Problem Notes None recorded. Procedures Surgical History Date Name Laterality Status Provider Name and Address Organization Details Recorded Time 0 Date of Last Mammogram completed Annabelle Kwon MA [facility] 11/29/2021 11:22:55 9 Date of Last Pap Smear completed Annabelle Kwon MA [facility] 02/18/2024 11:30:21 Imaging Results None recorded. Procedure [...] 79 mm[Hg] ORLY BAUTISTA Attn: Accounting,[address] [facility], [place], [address], [facility] 04/28/2024 08:27:57 Date Recorded Body height Body mass index (BMI) Body weight Provider Name and Address Organization Details Last Updated DateTime 04/19/2024 180.34 cm 27.5 kg/m2 95751.7 g Annabelle Kwon MA [facility] 04/19/2024 09:03:32 Date Recorded Body height Body mass index (BMI) Body weight Heart rate Oxygen saturation Oxygen saturation in Arterial blood by Pulse oximetry Systolic blood pressure Diastolic blood pressure Provider Name and Address Organization Details Last Updated DateTime 4 180.34 cm 27.9 kg/m2 19562.4 7 g 86 /min 98 % 98 % 150 mm[Hg] 78 mm[Hg] Annabelle Kwon MA [facility] 4 09:49:59 Date Recorded Body height Body mass index (BMI) Body weight Heart rate Oxygen saturation Oxygen saturation in Arterial blood by Pulse oximetry Systolic blood pressure Diastolic blood pressure Provider Name and Address Organization Details Last Updated DateTime 3 180.34 cm 27.2 kg/m2 96027.5 1 g 74 /min 99 % 99 % 122 mm[Hg] 70 mm[Hg] Annabelle Kwon MA [facility] 3 09:40:41 Date Recorded Body height Body mass index (BMI) Body weight Heart rate Oxygen saturation Oxygen saturation in Arterial blood by Pulse oximetry Systolic blood pressure Diastolic blood pressure Provider Name and Address Organization Details Last Updated DateTime 3 180.34 cm 26.9 kg/m2 21896.3 3 g 69 /min 99 % 99 % 142 mm[Hg] 60 mm[Hg] Annabelle Kwon MA [facility] 3 15:52:29 Date Recorded Body height Body mass index (BMI) Body weight Heart rate Oxygen saturation Oxygen saturation in Arterial blood by Pulse oximetry Systolic blood pressure Diastolic blood pressure Provider Name and Address Organization Details Last Updated DateTime 4 180.34 cm 26.5 kg/m2 55543.5 5 g 61 /min 98 % 98 % 165 mm[Hg] 78 mm[Hg] Annabelle Kwon MA [facility] 4 11:29:56 Social History Question Answer Notes LastModified by Organizat ion Details LastModified Time Tobacco Smoking Status Never Smoker Flory Lopez MA null, [place] 12/22/2017 12:29:15 Do You Have [...] Do 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 Information not available 01/22/2022 What Was [...] Atrial Fibrillation N High Blood Pressure N Kidney or Bladder Problems N Thyroid Problems N GI Problems Y Depression N COPD N Blood Clots N Skin Problems N Anemia N Heart Attack (ID) N Anxiety Disorder N Diabetes N Muscle, Joint, or Bone Problems N Seizures/Epilepsy N Acid Reflux (GERD) N Cancer N Stroke N Asthma N Allergies N High Cholesterol N Hepatitis N Liver Disease N Headaches N Heart Failure N Osteoporosis N Gynecological [...] 16:01:08 Tdap 05/24/2020 completed Annabelle Kwon MA [facility], [facility] 05/24/2020 16:14:06 Past Encounters Encounter ID Performer Location Encounter Start Date Encounter Closed Date Diagnosis/Indication Diagnosis SNOMED-CT Code Diagnosis ICD10 Code Diagnosis Note [id number] ERINN Garrett NP [facility] [address] [place] [address] 12/22/2017 12:11:14 12/22/2017 15:16:30 Menopausal symptom 97982611 N95.1 -Obtain labs-Discu ssed pt may no longer be ovulating and may not need control-F/ u prn Herpes simplex 96892887 B00.9 -Renew acyclovir- Hx of herpes Hyperlipid emia screening 836410101 Z13.220 -Obtain lab [id number] ORLY BAUTISTA [facility] [address] [place] [address] 10/08/2018 13:42:11 10/08/2018 16:38:56 Gynecologic examination 43934056 Z01.419 Patient presents for pap. no history of abnormal paps. HX of herpes. Due for mammogram. - get mammogram- will call with results Herpes simplex 17358058 B00.9 patient says she was told she [...] Do not take antiviral every day At [facility] risk of sexually transmitted infection 048317807 Z20.2 patient would like to be screened. [id number] ORLY BAUTISTA [facility] [address] [place] [address] 10/15/2018 10:01:12 10/22/2018 16:29:10 Hyperlipidemia 67289736 E78.5 checking labs Weight gain 2771015 R63. 5 Patient has beeing gaining weight in last year. She thinks it may have to do with diet and lack of excercise. She used to walk and will start up again. - TSH - excercise 30 mins 5x week - balanced meals Pain of ri ght hip joint 0149479451 99682 M25.551 patient has had right hip pain and tightness that travels down the lateral side of leg to knee. On exam her IT band is tight. normal ROM. Patient would benefit from PT to improve pain and stretch out right side. - PT therapy. [id number] ORLY BAUTISTA [facility] [address] [place] [address] 07/25/2019 11:19:57 07/26/2019 15:12:38 Acute urinary tract infection 833236075 N39.0 patient presents with 1-2 weeks of R>L back pain. She states this is how her UTI present. denies fever, chills, nausea, radiating pain, hematuria, dysuria. - UA positive for leukocytes . will send culture and antibiotic s.- sending patient with bactrim, she denies any allergies to medication s.- stay hydrated- keep area dry [id number] ORLY BAUTISTA [facility] [address] [place] [address] 08/22/2019 09:39:41 08/23/2019 16:02:12 Hematochezia 977012325 K92.1 patient with history of intermitte nt [...] changed will send stool softening medication Hemorrhoids 71682135 K64 .9 [id number] ORLY BAUTISTA [facility] [address] [place] [address] 10/10/2019 11:00:11 10/11/2019 10:06:30 Painless rectal bleeding 830227632 K62.5 patient with history of intermitte nt [...] softening medication - GI Cholesterol screening 27 2467060 Z13.104 [id number] ORLY BAUTISTA [facility] [address] [place] [address] 01/27/2020 11:39:48 02/02/2020 03:46:47 [id number] ORLY BAUTISTA [facility] [address] [place] [address] 05/24/2020 13:52:12 05/25/2020 10:55:23 Painless rectal bleeding 584644326 K62.5 patient with history of intermitte nt hematochez ia, constipati on/straini ng and known haemorrhoi d . Last colonoscop y She thinks was 2008 at [facility] in [place]. . She denies pain, diarrhea, dark stools, fever, chills. ddx: haemorrhoi d's, diverticul osis, IBD, malignancy - obtain colonoscop y results, record relase auth filled out and sent - increase fiber diet - stay hydrated - if continues to have straining with diet changed will send stool softening medication - GI Cholesterol screening 27 0643332 Z13.220 Administra tion of diphtheria, pertussis, and tetanus vaccine 445057010 Z23 Anemia 243384842 D64.9 hGB 9.4 11/2019. Denies fatigue, bright red blood in a long time. Will recheck labs Low back pain 275087303 M54.5 mild low back pain after picking up boxes at work. She stretches and it helps. May take tylenol or ibuprofen for pain. Gave informatio n on back pain and exercises to do at home. If no improvemen t f/u. Adult heal th examination 752976070 Z00.01 Patient presents for annual exam. Vitals wnl. Needs colonoscop y. UTD on pap. - given tdap shot today - f/u yearly or prn - 30 mins exercise 5x week [id number] ORLY BAUTISTA [facility] [address] [place] [address] 05/29/2020 13:40:19 05/29/2020 21:58:12 Tuberculosis screening 263105804 Z11.1 [id number] ORLY BAUTISTA [facility] [address] [place] [address] 08/20/2020 08:33:35 08/21/2020 07:44:02 Constipation 04530969 K59.00 Patient diagnosed with constipati on at [facility]. feeling much better today and increasing her fiber and fluid intake. no more symptoms today. Needs work release. - more fluids - increase veggies. 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 She needs note for work - may use vaseline on broken skin- protect hands from chemicals- working hands, cerave, cetaphil, aveeno may help with dry skin [id number] ORLY BAUTISTA [facility] [address] [place] [address] 11/29/2021 11:12:26 12/03/2021 08:58:49 Cholesterol screening 795948899 Z13.220 screen Anemia 405190803 D64.9 hGB 9.4 11/2019., 10.7 05/2020 Denies fatigue, bright red blood in a long time. Will recheck labs. needs colonoscop y. order placed Overweight 298465019 E66 .3 Screening mammography 581291 Screening for malignant neoplasm of colon 801825998 Z12.11 had one 2008 for rectal bleeding. normal Herpes simplex 41159524 B00.9 patient says she was told she [...] risks v benefits discussed on being on group home medication that is not being takes as prescribed . - stop medication - will bring back in a month to make sure yen is doing okay, very anxious [id number] Lisa Ortiz DO [facility] [address] [place] [address] 01/22/2022 11:47:55 01/23/2022 08:01:18 Screening for malignant neoplasm of colon 876382474 Z12.11 last colonoscop y 6-7 years ago with polyps. No family historyNo CV/pulm issues relayed by patient. Irritable bowel syndrome 27305737 K58.9 patient to continue with probiotics . Can try her IBgard. If no improvemen t, can consider GasX [id number] ORLY BAUTISTA [facility] [address] [place] [address] 07/22/2022 12:27:31 07/22/2022 13:03:32 Spinal stenosis of lumbar region 11453525 M48.061 pain lasted 3 weekspain free as of one week. no sx today.agre es to PTPEX: normal ROM. no pain on lumbar palpation. CT lumbar spine (06/2022):L 3-L4, L4-L5 & L5-S1 Disc bulge, severe facet OA, mild b/l neural stenosis. mild central canal stenosis. Screening for malignant neoplasm of colon 828755640 Z12.11 had one 2008 for rectal bleeding. normal Screening mammography 24 974617 Z12.31 Prediabetes 214063229 R7 3.03 6.1 2021 Iron defic iency anemia 95363026 D50.9 repeat [id number] ORLY BAUTISTA [facility] [address] [place] [address] 12/08/2022 09:33:33 12/08/2022 09:57:48 Edema of lower extremity 620566235 R60.0 1-2+ pitting edema to mid leg. 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 did not take hcz today. patient educated on BP, checking at home, diet and health problems a/w with high BP including stroke, ID, , kidney damage.re- start hcz for leg swelling and BP controlshe is to check bp [facility] Anemia 030103184 D64.9 hGB 10.8 ( 07/2022) 9.4 (11/2019), 10.7 (05/2020) Prediabetes 655427591 R7 3.03 5.9% (07/2022) 6.1% 2021 Edema of l ower extremity 181751130 R60.0 1+ pitting edema to mid leg. a nodule like induration palpated on R gastrocnem ius.- watch sodium-paige vate legs- wear compressio n when on feet- negative lazaro sign [id number] Abelardo Foreman MD [facility] [address] [place] [address] 02/18/2024 11:15:33 02/18/2024 12:07:05 Gynecologic examination 64726075 Z01.419 Patient presents for pap. no history of abnormal paps. HX of herpes. - mammogram UTD 05/2023- CBE normal- breast education provided Overweight 057668192 E66 .3 Essential hypertension 01452573 I10 150/78 today, not controlled . did not take hcz today. patient educated on BP, checking at home, diet and health problems a/w with high BP including stroke, ID, , kidney damage.she is to check [facility] [id number] Abelardo Foreman MD [facility] [address] [place] [address] 04/19/2024 08:54:27 04/19/2024 09:48:09 Essential hypertension 58112071 I10 170/79 today, not controlled . did not take hcz today. patient educated on BP, checking at home, diet and health problems a/w with high BP including stroke, ID, , kidney damage.she is to check [facility] Bilateral shoulder joint pain 3663190925 0137721 M25.511 b/l shoulder pain from lifting heavy at work. finishing R shoulder therapy and would like to start therapy for left side.work is allowing her to do light duty. letter written for patient PEX: limited limited abduction with internal rotation. 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 - start PT- f/u 6-8 weeks- ICE/nsaid prn Overweight 178562967 E66 .3 bmi 27.5 Health Concerns Section Related Observation LastModified by Organization Detai ls LastModified Time None Recorded Concern Status LastModified by Organization Details LastModified Time None Recorded Advance Directives Directive N: Payers Insurance Date Sequence Insurance Name Policy Number Policy Thomas Covered Member ID Thomas Member ID Guarantor Name 07/22/2022 1 [facility] - D[facility] OPT[facility] (MEDICARE - MEDICAID REPLACEMENT HMO) [id number] Raegan Cristino [id number] Raegan Brenton Cristino 11/29/[address] [facility] [id number] Raegan Cristino [id number] Raegan R Cristino 10/08/2018 1 *SELF PAY* Al esia Brenton Cristino 05/23/2020 SLIDING FEE SCHEDULE - DISCOUNT Raegan R Cristino 11/08/2021 2 [place] Raegan Cristino [id number] Raegan R Cristino 05/03/2021 1 [facility] (MEDICAID HMO) [facility] Raegandonal Gregg [id number] Raegan R Cristino 07/11/2024 1 [facility] BENEFIT PLAN MANAGEMENT - [facility] [id number] Raegan Cristino [id number] Raegan R Cristino 11/08/2021 1 [facility] [id number] Raegandonal Gregg [id number] Raegan R Cristino 05/03/2021 3 [facility] - OPEN ACCESS [id number] Raegan Cristino [id number] Raegan R Cristino Notes Date Note Type [...] sob, palpitations. ORLY BAUTISTA Attn: [address] [place], [address], [facility] 12/08/2022 14:26:17 02/04/2023 text/html Raegan [...] BAUTISTA Attn: [address]ing[address] , [place], [address], [place] [facility] 02/04/2023 17:06:44 07/20/2023 text/html [...] up to study. colon screen: completed at [place] 2022, need records ORLY BAUTISTA Attn: Accounting[address] [facility], [place], [address], [facility] 07/20/2023 10:17:08 02/18/2024 text/html Raegan is here f or pap smear LMP: menopauseLast Pap: 2019 NILM HPV negativeLast mammogram: normal 06/2023Fam hx: denies breast, cervical, uterine, ovarian cancers 12/27/23 [place] , normal fedder ORLY BAUTISTA Attn: Accounting[address] [facility], [place], [address], [facility] 02/18/2024 12:06:08 04/19/2024 text/html Raegan [...] of milk. ORLY BAUTISTA Attn: [address] [place], [address], [facility] 04/28/2024 08:31:04 OBGyn Episode No OBEpisode recorded.
--- OUTSIDE RECORDS SUMMARY | 2024-08-25 07:27 | XMS_ITS | Referral Summary ---
[facility] Address [address] [place] [address] Care Team Providers Care Metal Can Inspector Name Role Phone Theresa Persaud MD Primary Care Provider [phone] Allergies Active Allergy Reactions Criticality Noted Date Comments Tree Nut Medications No known medications Active Problems Problem Noted Date Diagnosed Date Peripheral vascular disease, unspecified 024 Assessment & Plan (07/16/2023 7:37 AM CDT): Based on her history and clinically no evidence of PVD. ABIs are normal from [facility], abnormal digital brachial indices which may represent some microvascular disease. Can follow up as needed. 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 This facility utilizes [facility] system to notify patients of yearly mammograms. [...] to Health Maintenance Insurance [employer] [address] [id number] Care Teams Metal Can Inspector Relationship Specialty Start Date End Date Theresa Persaud MD [address] [place] [address] PCP - General Internal Medicine 10/22/17
--- OUTSIDE RECORDS SUMMARY | 2024-08-25 07:27 | XMS_ITS | Clinical Summary ---
Author Organization [facility] Building [address] Address [address] [place] [address] Care Team Providers Care Medical Records Custodian Name Role Phone Theresa Persaud MD Primary Care Provider [phone] Allergies Active Allergy Reactions Criticality Noted Date Comments Tree Nut Medications No known medications Active Problems Problem Noted Date Diagnosed Date Peripheral vascular disease, unspecified 024 Assessment & Plan (07/16/2023 7:37 AM CDT): Based on her history and clinically no evidence of PVD. 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 This facility utilizes [employer] system to notify patients of yearly mammograms. [...] Recently Relevant to Health Maintenance Insurance [facility] Care Teams Medical Records Custodian Relationship Specialty Start Date End Date Theresa Persaud MD [address] [place] [address] PCP - General Internal Medicine 10/22/17
== END 2024-08-25 07:22 | disposition home or self-care (01) ==
LOC: ANHIMG 07:25
PROVIDERS: PCP Physician Assistant; Visit Provider Physician Assistant
DX: Z12.31 Encounter for screening mammogram for malignant neoplasm of breast (principal)
CPT/HCPCS: 77063; 77067